=== PATIENT | male | born 1960 | race Caucasian/White ===

== ENCOUNTER 2019-08-12 14:44 | Outpatient (CLI) | payer BC, SELFPAY ==
--- NOTE | ~2019-08-12 | CT_ITS ---
EXAMINATION: CT shoulder RT wo con DATE: 08/12/2019 15:09 INDICATION: Right shoulder pain. TECHNIQUE: Computed tomography (CT) of the right shoulder was performed without intravenous contrast. Automated exposure control and iterative reconstruction technique were employed. The dose-length pro duct was 467.10 mGy-cm. COMPARISON: None FINDINGS: There is superior subluxation of humeral head with respect to glenoid with remodeling of th e undersurface of the acromion and superior aspect of the humeral head, consistent with chronic rotat or cuff tear with cup arthropathy. No fracture. There is severe osteoarthritis of glenohumeral joint and acromioclavicular joint. There are loose bodies in the glenohumeral joint and subacromial/subdelt oid bursa measuring up to 2.0 cm. There is a moderate-sized glenohumeral joint effusion. There is vol ume loss and moderate fatty atrophy of supraspinatus, infraspinatus, and subscapularis muscle bellies . Right-sided gynecomastia is noted. IMPRESSION: 1. Severe osteoarthritis of glenohumeral joint and acromioclavicular joint. 2. Chronic rotator cuff tear with cuff arthropathy. 3. Moderate-sized glenohumeral joint effusion with loose bodies in glenohumeral joint and subacromial /subdeltoid bursa. Reviewed, dictated and finalized at location A. ADVISER IMPRESSION: 1. Severe osteoarthritis of glenohumeral joint and acromioclavicular joint. 2. Chronic rotator cuff tear with cuff arthropathy. 3. Moderate-sized glenohumeral joint effusion with loose bodies in glenohumeral joint and subacromial/subdeltoid bursa.
== END 2019-08-12 14:45 | disposition home or self-care (01) ==
PROVIDERS: Visit Provider Orthopaedic Surgery
DX: M19.011 Primary osteoarthritis, right shoulder (principal); M25.411 Effusion, right shoulder
CPT/HCPCS: 73200

== ENCOUNTER 2021-11-12 15:11 | Emergency (ER) | payer OTHER, SELFPAY ==
[2021-11-12 15:21] VITALS: BP 126/90; PULSE 113; RESP 16; TEMP 37; O2SAT 99
--- NOTE | 2021-11-12 15:21 | ED.EXTPRO ---
HPI - Extremity Problem General Chief complaint: Extremity Problem,Nontraumatic Stated complaint: right foot 5th digit toe Time Seen by Provider: 11/12/21 15:21 Source: patient and RN notes reviewed Mode of arrival: ambulatory Limitations: no limitations History of Present Illness HPI Narrative: 61-year-old male presents to the [facility] with complaints of pain, redness and swelling to the fourth toe right foot. Reports pain. Patient is a diabetic, poor hygiene of the feet. Very dry callused. No open wounds. Has sensation intact of the fourth right toe. Redness, swelling noted. Patient reports trying to call primary care provider, states he was unable appointment due to her being on vacation. Related Data Allergies Allergy/AdvReac Type Severity Reaction Status Date / Time NONE PER PT Allergy Uncoded 09/28/11 14:15 Review of Systems Review of Systems: All systems reviewed & are unremarkable except as noted in HPI and below Constitutional: Constitutional: Reports no additional constitutional complaints, Denies chills and Denies fever(s) Eyes: Eyes: Reports no additional eye complaints ENT: Reports system reviewed and no additional complaints, except as documented Cardiovascular: Cardiovascular: Reports no additional cardiovascular complaints Respiratory: Respiratory: Reports no additional respiratory complaints Gastrointestinal: Gastrointestinal: Reports no additional gastrointestinal complaints Musculoskeletal: Musculoskeletal: Reports no additional musculoskeletal complaints Integumentary/Breasts: Skin/Breast: Reports as per HPI and Reports erythema (Fourth right toe) Neurologic: Reports system reviewed and no additional complaints, except as documented Psychiatric: Psychiatric: Reports no additional psychiatric complaints Allergic/Immunologic: Allergic/Immunologic: Reports no additional allergic/immunologic complaints [facility] Past Medical History Medical History History of diabetes mellitus History of high blood pressure Comments At the time of my signature, I reviewed and agree with the nursing past medical, surgical, social, and family history. There is no relevant family history pertinent to the patient complaint. Exam Const: General: healthy appearing, no acute distress and alert Nutritional Appearance: well nourished Orientation/consciousness: patient oriented x3 Limitations: no limitations HENMT: Head: normal to inspection Ears: external ears normal Eyes: Pupils: Equal, round and reactive pupils present Neck: Neck: normal visual inspection, no lymphadenopathy and no meningeal signs Chest: Chest palpation & inspection: normal inspection of the chest Resp: Effort & Inspection: normal respiratory effort and no use of accessory muscles Auscultation: clear to auscultation bilaterally, no crackles, no rales, no rhonchi and no wheezes Cardio: Rate: regular rate Rhythm: regular rhythm Skin: General skin exam: normal color Rashes: no rashes Wounds: no wounds Other: Redness dorsal aspect fourth toe right foot, minor swelling, sensation intact, capillary refill 2 seconds Neuro: General: patient oriented x3, moves all extremities, no meningeal signs and no focal motor deficits Cranial nerves: Yes Equal, round and reactive pupils present Speech: normal speech Gait exam (Neuro): Normal gait present Extrem: General: normal to inspection Psych: Appearance: grossly normal and well kempt Mental Status: mental status grossly normal Affect: normal affect Attitude: cooperative Thought content: Yes Normal thought content present Course Course Emergency Course: Discharge instructions reviewed with patient, as well as provided in writing per nursing staff. The instructions also include specific and strict return/GO TO THE ER as well as f/u information. All questions have been answered, and the patient deny any further questions with discharge and
[2021-11-12 15:35] VITALS: BP 126/90; PULSE 113; RESP 16; TEMP 37; O2SAT 99
[2021-11-12 15:35] LABS: Glucose Point of Care 160 mg/dl (65-105)
== END 2021-11-12 15:40 | disposition home or self-care (01) ==
PROVIDERS: Emergency Provider Nurse Practitioner
DX: L03.031 Cellulitis of right toe (principal); E11.9 Type 2 diabetes mellitus without complications; I10 Essential (primary) hypertension
CPT/HCPCS: 82948; 99213; G0463

== ENCOUNTER 2022-07-13 08:44 | Emergency (ER) | payer OTHER, SELFPAY ==
[2022-07-13 08:49] VITALS: BP 148/81; PULSE 95; RESP 20; TEMP 36.3; O2SAT 100
--- NOTE | 2022-07-13 08:57 | ED.ABDPAIN ---
HPI - Abdominal Pain General Chief Complaint: Abdominal Pain Stated Complaint: abd pain/diarrhea Time Seen by Provider: 07/13/22 09:05 Source: patient and RN notes reviewed Mode of arrival: ambulatory Limitations: no limitations History of Present Illness HPI narrative: 61 y/o male with diabetes and HTN presented for c/o abdominal pain and diarrhea, onset yesterday. States last night he had sharp upper middle abdominal pain, described as a knife stabbing. He has continued with diarrhea into this morning. Unknown if blood in stool, states he did not check. Denies n/v/f/c, chest pain, or palpitations. Drinks alcohol daily about 4 beers, last night he drank one. Also drank milk and ate small amount of anguillan food and was able to go to sleep. Then at 0100 developed more pain and continued with diarrhea. He took pepto without relief. Has not been taking DM medication due to insurance/financial issues. States he can regulate it 'mentally and physically' by how much the neuropathy acts up after eating certain foods. Related Data Home Medications Medication Instructions Recorded Confirmed lisinopril 10 mg tablet 10 mg DIRECTED 07/13/22 07/13/22 meloxicam 15 mg tablet 15 mg DIRECTED 07/13/22 07/13/22 Allergies Allergy/AdvReac Type Severity Reaction Status Date / Time NONE PER PT Allergy Uncoded 09/28/11 14:15 Review of Systems Review of Systems: CONSTITUTIONAL: Denies body aches, fever, chills ENT: Denies rhinorrhea, congestion CARDIOVASCULAR: Denies chest pain, palpitations, or edema. RESPIRATORY: Denies cough or dyspnea. GASTROINTESTINAL: per HPI GENITOURINARY: Denies dysuria, hematuria, or CVA tenderness. SKIN: Denies rash, itching, or wounds. MUSCULOSKELETAL: Denies back pain, joint pain, or myalgia. NEUROLOGIC: Denies headache, numbness, tingling, or weakness. All systems reviewed & are unremarkable except as noted in HPI and below PMFSH Past Medical History Medical History History of diabetes mellitus History of high blood pressure Comments At time of signature, I have reviewed and agree with nursing past medical, surgical, social and family history unless otherwise noted. Please see nursing chart for further information. There is no relevant family history pertinent to the presenting complaint Exam Narrative: GENERAL: ill-appearing, and in no acute distress. EYES: EOMI. Conjunctivae normal. ENT: Mucous membranes pink and moist. CHEST: Clear to auscultation. HEART: Regular rate and rhythm. No murmur appreciated. Normal peripheral pulses. ABDOMEN: abd soft, nondistended, hypoactive bowel sounds. Diffusely tender abdomen; No guarding, rebound tenderness, asymmetry EXTREMITIES: Normal range of motion. No edema. SKIN: Warm, dry, no rash. Capillary refill normal. Normal skin turgor. NEURO: No focal deficits. Alert and oriented x3. PSYCH: Normal affect. Course Course Emergency Course: Patient is aware of diagnosis, understands and agrees to treatment plan. Anticipatory guidance given. Patient agrees to follow-up as directed and is aware of reasons to seek care at the emergency department. Portions of this record may have been created with voice recognition software Level of Care: Express Care Visit Vital Signs Vital signs: Vital Signs Temperature 97.3 F L 07/13/22 08:49 Pulse Rate 95 07/13/22 08:49 Respiratory Rate 20 07/13/22 08:49 Blood Pressure 148/81 H 07/13/22 08:49 Pulse Oximetry 100 07/13/22 08:49 Oxygen Delivery Room Air 07/13/22 08:49 Temperature 97.3 F L 07/13/22 08:49 Pulse Rate 95 07/13/22 08:49 Respiratory Rate 20 07/13/22 08:49 Blood Pressure 148/81 H 07/13/22 08:49 Pulse Oximetry 100 07/13/22 08:49 Oxygen Delivery Room Air 07/13/22 08:49 MDM - Abdominal Pain MDM Narrative Medical decision making narrative: Patient presented with abdominal pain and diarrhea since yeste
[2022-07-13 09:22] LABS: Glucose Point of Care 342 mg/dl (65-105)
== END 2022-07-13 09:39 | disposition home or self-care (01) ==
PROVIDERS: Emergency Provider Nurse Practitioner Family
DX: R10.84 Generalized abdominal pain (principal); R19.7 Diarrhea, unspecified
CPT/HCPCS: 81003; 82948; 99212; G0463

== ENCOUNTER 2023-04-04 11:51 | Emergency (ER) | payer OTHER, SELFPAY ==
--- NOTE | 2023-04-04 12:00 | ED.GENADULT ---
HPI - General Adult General Chief complaint: Shortness of Breath/Dyspnea Stated complaint: shaking,difficulty breathing,thirsty Time Seen by Provider: 04/04/23 12:04 Mode of arrival: ambulatory Limitations: no limitations History of Present Illness HPI narrative: 62-year-old male with history of diabetes presents with concern for general weakness, shakiness, difficulty breathing, increased thirst. Reports he currently does not take any medication for his diabetes, and he does not have any diabetes monitoring devices. He does not know what his blood sugar usually runs. He reports chills, denies fever, sweats. Denies chest pain. Reports shortness of breath. Reports he left work today due to the symptoms. He denies rhinorrhea, nasal congestion, sore throat, cough. He denies vomiting or diarrhea. He denies abdominal pain. Related Data Home Medications Medication Instructions Recorded Confirmed lisinopril 10 mg tablet 10 mg DIRECTED 07/13/22 04/04/23 meloxicam 15 mg tablet 15 mg DIRECTED 07/13/22 04/04/23 Allergies Allergy/AdvReac Type Severity Reaction Status Date / Time No Known Allergies Allergy Verified 04/04/23 11:58 Review of Systems Review of Systems: CONSTITUTIONAL: Reports malaise, chills, shakiness, increased thirst, generalized weakness EYES: Denies visual changes ENT: Denies rhinorrhea, congestion, sinus pain, otalgia or sore throat. CARDIOVASCULAR: Denies chest pain, palpitations, or edema. RESPIRATORY: Denies cough. Reports dyspnea. GASTROINTESTINAL: Denies abdominal pain, nausea, vomiting, diarrhea, bloody, or mucous stools. GENITOURINARY: Denies dysuria or hematuria. SKIN: Denies rash or itching. MUSCULOSKELETAL: Denies myalgia. Reports bilateral chronic shoulder pain NEUROLOGIC: Denies numbness, weakness, or headache. All systems reviewed & are unremarkable except as noted in HPI and below PMFSH Past Medical History Medical History History of diabetes mellitus History of high blood pressure Comments At time of signature, agree with nursing past medical, surgical, social and family history. There is no relevant family history pertinent to the presenting complaint Exam Narrative: GENERAL: Ill-appearing HEAD: Normocephalic EYES: PERRLA, sclera clear, and EOMI. No nystagmus. ENT: Nares clear. Mucous membranes moist. NECK: Supple. CHEST: No respiratory distress. Clear to auscultation. Conversational dyspnea HEART: Fast rat. Normal peripheral pulses. SKIN: Warm, dry, no visible rash. NEURO: Alert and oriented x3. Course Course Emergency Course: Patient is aware of, understands and agrees to be seen in the emergency department. Portions of this record may have been created with voice recognition software Level of Care: Express Care Visit Vital Signs Vital signs: Reviewed. Transfer Transfered to: [place] Transportation: [facility] Transfer rationale: Suspected myocardial infarction Accepting physician: Julissa Medical Decision Making MDM Narrative Medical decision making narrative: Exam findings and EKG warrant further evaluation emergency department. Patient agrees to EMS transfer ECG Data EKG #1: ECG completion date: 04/04/23 ECG completion time: 12:20 Prior ECG tracings: not available for review Ischemic changes: ST elevation Interpretation: Rate 113, [place] interval 164, QRS duration 89, sinus tachycardia, septal myocardial infarction of indeterminate age EKG Interpretation: tachycardia Critical Care Time Critical Care Time Critical Care Time: No Discharge Plan Discharge Clinical Impression: Abnormal ECG Patient Disposition: Acute Care Hospital Condition: Stable Prescriptions: No Action meloxicam 15 mg tablet 15 mg DIRECTED lisinopril 10 mg tablet 10 mg DIRECTED Follow-up/Referrals: PHYSICIAN NOT ON STAFF,NONSTAFF [Gabby
[2023-04-04 12:06] VITALS: BP 143/96; PULSE 118; RESP 20; TEMP 36.3; O2SAT 99
[2023-04-04 12:07] LABS: Glucose Point of Care 261 mg/dl (65-105)
--- NOTE | 2023-04-04 12:10 | ECG_ITS ---
Measurements Intervals [place] Rate: 113 P: 53 [place]: 164 QRS: -4 QRSD: 89 T: 20 QT: 296 QTc: 407 Interpretive Statements SINUS TACHYCARDIA CANNOT RULE OUT SEPTAL MYOCARDIAL INFARCTION [40+ ms Q WAVE IN V1/V2], OF INDETERMINATE AGE NO PREVIOUS ECG AVAILABLE FOR COMPARISON Electronically Signed On 04-04-2023 15:46:35 CDT by Walter Varghese M.D.
[2023-04-04] MEDS: ASPIRIN 81 MG CHEWABLE TABLET 324 MG PO (12:20)
== END 2023-04-04 12:35 | disposition short-term general hospital (02) ==
PROVIDERS: Emergency Provider Nurse Practitioner
DX: R94.31 Abnormal electrocardiogram [ECG] [EKG] (principal); E11.9 Type 2 diabetes mellitus without complications; Z20.822 Contact with and (suspected) exposure to COVID-19
CPT/HCPCS: 81003; 82948; 87426; 87804; 93005; 99215; A9270; C9803; G0463

== ENCOUNTER 2023-04-04 12:47 | Emergency (ER) | payer OTHER, SELFPAY ==
[2023-04-04] VITALS (9 sets, daily range): BP systolic 129–146; BP diastolic 87–95; PULSE 104–122; RESP 15–22; TEMP 36.6; O2SAT 95–100
--- NOTE | ~2023-04-04 | XR_ITS ---
EXAMINATION: XR chest 2V DATE: 04/04/2023 13:30 INDICATION: Weakness and hypertension TECHNIQUE: AP and lateral views of the chest are obtained. COMPARISON: None available FINDINGS: The lungs are free of acute opacities. No pleural effusion or pneumothorax. The cardiomedia stinal silhouette is normal. There is mild thoracic spondylosis. There are changes of right shoulder arthroplasty. Advanced osteoarthritis is noted at the left glenohumeral joint. IMPRESSION: 1. No acute cardiopulmonary abnormality. Reviewed, dictated and finalized at location A.
--- NOTE | ~2023-04-04 | CT_ITS ---
EXAMINATION: CTA chest PE protocol DATE: 04/04/2023 15:11 INDICATION: Chronic bilateral shoulder pain. TECHNIQUE: Computed tomography angiography (CTA) of the chest was performed with 200 mL Omnipaque-350 intravenous contrast timed to evaluate the pulmonary arteries. Coronal maximum intensity projection 3D-reconstructions were created by the technologist. Automated exposure control and iterative reconst ruction technique were employed. The dose-length product was 1260.05 mGy-cm. COMPARISON: None. FINDINGS: There is mild atelectasis bilaterally. There is a 5 mm nodule in right lower lobe, likely b enign. No pleural effusion. The heart size is normal. There are coronary artery calcifications. No pe ricardial effusion. There is no pulmonary embolus. There is a 9 mm cyst in left kidney. There is a ri ght shoulder arthroplasty. There is severe cervical spondylosis and moderate thoracic spondylosis. Th ere is mild chronic anterior wedging of T11 and T12 vertebral bodies. IMPRESSION: 1. No pulmonary embolus. Reviewed, dictated and finalized at location E. IMPRESSION: 1. No pulmonary embolus.
--- NOTE | 2023-04-04 13:09 | ECG_ITS ---
Measurements Intervals [place] Rate: 110 P: 31 [place]: 155 QRS: 6 QRSD: 77 T: 8 QT: 307 QTc: 417 Interpretive Statements SINUS TACHYCARDIA NO PREVIOUS ECG AVAILABLE FOR COMPARISON Electronically Signed On 04-04-2023 15:46:47 CDT by Walter Varghese M.D.
[2023-04-04 13:40] LABS: Basophils Percent Auto 0.5 % (0.2-1.2); Eosinophils Absolute Auto 0.1 K/mm3 (0-0.3); Eosinophils Percent Auto 0.8 % (0-4.4); Hematocrit 45.5 % (37.0-47.0); Hemoglobin 15.1 g/dL (12.0-15.0); Immature Granulocyte Absolute 0.03 K/mm3 (0.00-0.031); Immature Granulocyte Percent A 0.5 % (0-0.5); Lymphocytes Absolute Auto 1.22 K/mm3 (0.9-3.2); Lymphocytes Percent Auto 18.4 % (18.3-44.2); Mean Corpuscular HGB Conc 33.2 g/dl (32-36); Mean Corpuscular Hemoglobin 31.8 pg (26-34); Mean Corpuscular Volume 95.8 fl (80-100); Mean Platelet Volume 9.6 fl (7.4-10.4); Monocytes Absolute Auto 0.4 K/mm3 (0.1-0.6); Monocytes Percent Auto 5.3 % (2.6-8.5); Neutrophils Absolute Auto 4.9 K/mm3 (1.3-6.7); Neutrophils Percent Auto 74.5 % (45.5-73.1); Platelet Count Result 227 k/mm3 (150-375); Red Blood Count 4.75 M/mm3 (4.2-5.4); Red Cell Distribution Width 11.9 % (11.5-14.5); White Blood Count 6.6 K/mm3 (4.5-10.0)
[2023-04-04 13:48] LABS: Alanine Aminotransferase 32 U/L (6-35); Albumin Level 4.5 g/dL (3.5-5.1); Alkaline Phosphatase 80 U/L (38-126); Anion Gap 10 mmol/L (8-16); Aspartate Amino Transferase 34 U/L (14-36); Blood Urea Nitrogen 19 mg/dL (7-17); Calcium 9.3 mg/dL (8.4-10.2); Carbon Dioxide 25 mmol/L (22-30); Chloride 96 mmol/L (98-107); Estimated CRCL calculation 75 ml/min; Estimated Glomerular Filt Rate > 60; Glucose 222 mg/dL (65-110); Potassium 4.4 mmol/L (3.4-5.0); Sodium 131 mmol/L (137-145)
[2023-04-04 13:49] LABS: Lactic Acid Reflex 1.7 mmol/L (0.7-2.0)
[2023-04-04 13:58] LABS: Appearance Urine Clear (Clear); Bilirubin Urine Negative (Negative); Blood Urine Negative (Negative); Color Urine Yellow (Yellow); Glucose Urine UA Trace mg/dL (Negative); Ketones Urine 1+ mg/dL (Negative); Leukocyte Esterase Ur Negative LEU/UL (Negative); Nitrate Urine Negative (Negative); Protein Urine Negative (Negative); Specific Grav Ur 1.005 (1.001-1.035); Urobilinogen Urine 0.2 mg/dL (<2.0); pH Urine 6.5 (5.0-9.0)
--- NOTE | 2023-04-04 14:07 | ED.WEAKNESS ---
HPI - Weakness General Chief complaint: Weakness Stated complaint: dizzy/weak Time Seen by Provider: 04/04/23 13:06 History of Present Illness HPI Narrative: Patient is a 62-year-old male with a history of diabetes presenting with generalized malaise. Patient states that for the last week he has been feeling lightheaded, generally weak, intermittently cold. States that he sometimes feels short of breath. He was seen at urgent care who told him to come to the ER because of an abnormal EKG. He denies any chest pain. No palpitations. Denies cough, nasal congestion, sore throat, abdominal pain, nausea or vomiting, diarrhea, dysuria, leg swelling, rashes. Related Data Home Medications Medication Instructions Recorded Confirmed lisinopril 10 mg tablet 10 mg DIRECTED 07/13/22 04/04/23 meloxicam 15 mg tablet 15 mg DIRECTED 07/13/22 04/04/23 Allergies Allergy/AdvReac Type Severity Reaction Status Date / Time No Known Allergies Allergy Verified 04/05/23 14:25 Review of Systems Review of Systems: All systems reviewed & are unremarkable except as noted in HPI and below PMFSH Past Medical History Medical History History of diabetes mellitus History of high blood pressure Exam Narrative: GENERAL: Well-appearing, in no acute distress, pleasant and cooperative HEAD: Normocephalic, atraumatic. EYES: PERRLA and EOMI. ENT: Mucous membranes moist. NECK: Supple. CHEST: Clear to auscultation. No respiratory distress. HEART: Regular rate and rhythm. No murmur heard. Normal peripheral pulses. ABDOMEN: Soft, nontender, nondistended EXTREMITIES: Normal range of motion. No edema. SKIN: Warm, dry, no rash. NEURO: No focal deficits. Alert and oriented x3. PSYCH: Normal mood and affect. Course Vital Signs Vital signs: Vital Signs Temperature 97.9 F 04/04/23 12:45 Pulse Rate 110 H 04/04/23 12:45 Respiratory Rate 22 H 04/04/23 12:45 Blood Pressure 137/90 04/04/23 12:45 Pulse Oximetry 100 04/04/23 12:45 Oxygen Delivery Room Air 04/04/23 12:45 Temperature 97.9 F 04/04/23 12:45 Pulse Rate 110 H 04/04/23 15:56 Respiratory Rate 20 04/04/23 15:56 Blood Pressure 143/95 H 04/04/23 15:56 Pulse Oximetry 98 04/04/23 15:56 Oxygen Delivery Room Air 04/04/23 12:45 MDM - Weakness MDM Narrative Medical decision making narrative: Patient is a 62-year-old male presenting with generalized malaise. Patient is tachycardic, otherwise vitals are within normal limits. Exam is remarkable for the above. EKG per my interpretation shows sinus tachycardia, normal axis, normal intervals, no ST elevations or depressions. Blood work concerning for elevated D-dimer. No other abnormalities noted. Undetectable troponin. CT PE shows no evidence of pulmonary embolus. Patient is negative for COVID and influenza. On reevaluation, the patient is asking to go home which I think is reasonable. Discussed the reassuring work-up. Advise close PCP follow-up. Strict return precautions given. Patient voiced understanding and is agreeable with plan. Discharged in stable condition. Differential Diagnosis Differential diagnosis: Likely sepsis, dehydration and other (URI, PE, pneumonia, KAYLEY, UTI, viral infection) Medical Records Attestation: I reviewed the patient's medical records. Lab Data Attestation: I reviewed the patient's lab results. 04/04/23 13:31 04/04/23 13:31 Labs: Lab Results 04/04/23 04/04/23 04/04/23 Range/Units 13:31 13:49 15:12 WBC 6.6 (4.5-10.0) K/mm3 RBC 4.75 (4.2-5.4) M/mm3 Hgb 15.1 H (12.0-15.0) g/dL Hct 45.5 (37.0-47.0) % MCV 95.8 (80-100) fl MCH 31.8 (26-34) pg MCHC 33.2 (32-36) g/dl RDW 11.9 (11.5-14.5) % Plt Count 227 (150-375) k/mm3 MPV 9.6 (7.4-10.4) fl Immature Gran % (Auto) 0.5 (0-0.5) % Neut % (Auto) 74.5 H (45.5-73.1) %
[2023-04-04 14:14] LABS: Add Urine Microscopic? NO
[2023-04-04] MEDS: SODIUM CHLORIDE 0.9% IV 1,000 ML 999 ML IV CONT ×2 (14:16→14:50)
[2023-04-04 14:25] LABS: INR 0.9; Prothrombin Time 12.6 Seconds (11.1-14.7)
[2023-04-04 14:26] LABS: Partial Thromboplastin Time 28.6 SECONDS (22.3-36.8)
[2023-04-04 14:37] LABS: D Dimer 0.53 ug/mL (<0.48)
[2023-04-04 15:15] LABS: NT Pro B Type Natriuretic Pept < 20 pg/mL (19.9-100); Troponin I < 0.012 ng/mL (0.000-0.034)
[2023-04-04 15:55] LABS: Influenza A QL RT-PCR Negative (Negative); Influenza B QL RT-PCR Negative (Negative); SARS-CoV-2 RNA PCR Negative (Negative)
== END 2023-04-04 15:57 | disposition home or self-care (01) ==
PROVIDERS: Emergency Provider Emergency Medicine; PCP Nurse Practitioner
DX: R53.81 Other malaise (principal); R06.02 Shortness of breath; Z20.822 Contact with and (suspected) exposure to COVID-19; E11.9 Type 2 diabetes mellitus without complications; I10 Essential (primary) hypertension; R00.0 Tachycardia, unspecified
CPT/HCPCS: 36415; 71046; 71275; 80053; 81003; 82948; 83605; 83880; 84484; 85025; 85380; 85610; 85730; 87426; 87636; 87804; 93005; 96360; 99284; A9270; C9803; J7030; Q9967

== ENCOUNTER 2023-05-18 08:59 | Emergency (ER) | payer OTHER, SELFPAY ==
--- NOTE | 2023-05-18 09:06 | ED.SKABFB ---
HPI - Skin/Abscess/Foreign Bdy General Chief complaint: Extremity Problem,Nontraumatic Stated complaint: Right Hand Pain Time Seen by Provider: 05/18/23 09:15 Source: patient and RN notes reviewed Mode of arrival: ambulatory Limitations: dementia History of Present Illness HPI narrative: 62-year-old male with history of uncontrolled diabetes presents with concern for redness, swelling to the 1st digit of the right hand. Reports he had a crack in the cuticle and symptoms started after that, they progressed over the last 3-4 days. He reports he tried calling his doctor for an antibiotic but is doctor would not prescribe one over the phone. He denies fever, body aches, chills, sweats. MD complaint: other (Redness) Related Data Home Medications Medication Instructions Recorded Confirmed lisinopril 10 mg tablet 10 mg DIRECTED 07/13/22 05/18/23 meloxicam 15 mg tablet 15 mg DIRECTED 07/13/22 05/18/23 Allergies Allergy/AdvReac Type Severity Reaction Status Date / Time No Known Allergies Allergy Verified 05/18/23 09:15 Review of Systems Review of Systems: CONSTITUTIONAL: Denies malaise, chills, sweats, or fever. CARDIOVASCULAR: Denies chest pain, palpitations, or edema. RESPIRATORY: Denies cough or dyspnea. GASTROINTESTINAL: Denies nausea, vomiting SKIN: Reports redness, swelling, pain to the 1st digit of the right hand. Denies purulent drainage, vesicles, bullae, numbness, pain beyond proportion MUSCULOSKELETAL: Denies joint pain or myalgia. NEUROLOGIC: Denies headache. All systems reviewed & are unremarkable except as noted in HPI and below PMFSH Past Medical History Medical History History of diabetes mellitus History of high blood pressure Comments At time of signature, agree with nursing past medical, surgical, social and family history. There is no relevant family history pertinent to the presenting complaint Exam Narrative: GENERAL: Well-appearing, well-nourished, and in no acute distress. HEAD: Normocephalic, atraumatic. EYES: PERRLA, conjunctivae clear ENT: Mucous membranes moist. NECK: Supple. No lymphadenopathy CHEST: Clear to auscultation. No respiratory distress. HEART: Regular rate and rhythm. SKIN: Warm, dry. Significant erythema, induration, tenderness, warmth noted to the 1st digit of the right hand extending into the hand and 2nd digit with approximately 1 cm area of fluctuation noted to the lateral 1st digit. No vesicles, bullae, necrosis, ecchymosis, crepitus noted. NEURO: Alert and oriented x3. PSYCH: Normal mood and affect Course Course Emergency Course: I advised patient that his infection would best be treated by IV antibiotics, particularly given his history of diabetes. Patient reports that he cannot afford to go to the ER and is that this time refusing to go to the emergency room. I advised the patient that I will treat him to the best of my ability, however he should without delay go to the emergency room if his symptoms not begin to improve in 24 hours. Patient signed AMA form. Anticipatory guidance given. Patient agrees to follow-up as directed and is aware of reasons to seek care at the emergency department. Portions of this record may have been created with voice recognition software Level of Care: Express Care Visit Vital Signs Vital signs: Reviewed. MDM - Skin/Abscess/Foreign Bdy MDM Narrative Medical decision making narrative: Exam findings warrant further evaluation the ER, however patient is refusing to go the emergency room; patient is non-toxic appearing and is in no distress. Patient is appropriate for outpatient treatment and follow-up. Differential Diagnosis Differential diagnosis: Likely abscess of skin or subcutaneous tissue, cellulitis and other (Necrotizing soft tissue infection) Critical Care Time Critical Care Time Critical Care Time: No Discharge Plan Discharge Clinical Impress
[2023-05-18 09:12] VITALS: BP 128/98; PULSE 117; RESP 20; TEMP 36.6; O2SAT 99
[2023-05-18] MEDS: LIDOCAINE/PRILOCAINE CREAM 2.5-2.5% TUBE 1 EACH TOPICAL (09:25)
== END 2023-05-18 09:55 | disposition home or self-care (01) ==
PROVIDERS: Emergency Provider Nurse Practitioner; PCP Nurse Practitioner
DX: L08.9 Local infection of the skin and subcutaneous tissue, unspecified (principal); E11.9 Type 2 diabetes mellitus without complications; I10 Essential (primary) hypertension
CPT/HCPCS: 99213; G0463

== ENCOUNTER 2023-05-22 09:26 | Emergency (ER) | payer OTHER, SELFPAY ==
[2023-05-22] VITALS (17 sets, daily range): BP systolic 108–143; BP diastolic 66–89; PULSE 88–102; RESP 16–18; TEMP 36.8–37; O2SAT 96–100
[2023-05-22 10:07] LABS: Basophils Percent Auto 0.3 % (0.2-1.2); Eosinophils Absolute Auto 0.1 K/mm3 (0-0.3); Eosinophils Percent Auto 1.4 % (0-4.4); Hematocrit 43.5 % (42.0-52.0); Hemoglobin 14.3 g/dL (14.0-18.0); Immature Granulocyte Absolute 0.02 K/mm3 (0.00-0.031); Immature Granulocyte Percent A 0.3 % (0-0.5); Lymphocytes Absolute Auto 0.55 K/mm3 (0.9-3.2); Lymphocytes Percent Auto 9.4 % (18.3-44.2); Mean Corpuscular HGB Conc 32.9 g/dl (32-36); Mean Corpuscular Hemoglobin 31.2 pg (26-34); Mean Platelet Volume 9.8 fl (7.4-10.4); Monocytes Absolute Auto 0.4 K/mm3 (0.1-0.6); Monocytes Percent Auto 6.3 % (2.6-8.5); Neutrophils Absolute Auto 4.8 K/mm3 (1.3-6.7); Neutrophils Percent Auto 82.3 % (45.5-73.1); Platelet Count Result 220 k/mm3 (150-375); Red Blood Count 4.58 M/mm3 (4.6-6.20); Red Cell Distribution Width 11.9 % (11.5-14.5); White Blood Count 5.9 K/mm3 (4.5-10.0)
[2023-05-22 10:19] LABS: Alanine Aminotransferase 31 U/L (6-50); Albumin Level 4.1 g/dL (3.5-5.1); Alkaline Phosphatase 88 U/L (38-126); Anion Gap 9 mmol/L (8-16); Aspartate Amino Transferase 35 U/L (17-59); Bilirubin,Total 0.6 mg/dL (0.2-1.3); Blood Urea Nitrogen 18 mg/dL (9-20); Calcium 9.4 mg/dL (8.4-10.2); Carbon Dioxide 28 mmol/L (22-30); Chloride 99 mmol/L (98-107); Estimated CRCL calculation 108 ml/min; Estimated Glomerular Filt Rate > 60; Glucose 334 mg/dL (65-110); Potassium 4.6 mmol/L (3.4-5.0); Sodium 136 mmol/L (137-145)
--- NOTE | 2023-05-22 12:18 | ED.GENADULT ---
HPI - General Adult General Chief complaint: Wound/Laceration Stated complaint: wound to thumb Time Seen by Provider: 05/22/23 09:41 History of Present Illness HPI narrative: Patient is a 62-year-old male who presents ER with a infection to his right thumb. Ongoing over the last week and a half. Began with crack scan that then developed into redness and swelling. He was seen 3 days ago at urgent care. He was prescribed Levaquin as well as linezolid. He reports since that visit he has had purulent drainage that became clear drainage and then just became bloody drainage. He reports the swelling has decreased. He was at work today and was told to come in by his boss to be evaluated further. Patient has history of diabetes and does not take anything for his blood sugar. He denies any fevers or chills or sweats. Has no lymphangitic streaking up his arm. Related Data Home Medications Medication Instructions Recorded Confirmed lisinopril 10 mg tablet 10 mg DIRECTED 07/13/22 05/18/23 meloxicam 15 mg tablet 15 mg DIRECTED 07/13/22 05/18/23 Allergies Allergy/AdvReac Type Severity Reaction Status Date / Time No Known Allergies Allergy Verified 05/18/23 09:15 Review of Systems Review of Systems: All systems reviewed & are unremarkable except as noted in HPI and below Constitutional: Constitutional: Denies chills and Denies fever(s) Cardiovascular: Cardiovascular: Reports no additional cardiovascular complaints Respiratory: Respiratory: Reports no additional respiratory complaints Gastrointestinal: Gastrointestinal: Reports no additional gastrointestinal complaints Musculoskeletal: Musculoskeletal: Denies arthralgias and Denies joint swelling Comments: Right thumb pain and swelling but not specifically the joint. Integumentary/Breasts: Skin/Breast: Denies pruritus, Reports erythema and Reports rash PMFSH Past Medical History Medical History History of diabetes mellitus History of high blood pressure Exam Narrative: GENERAL: Well-appearing, well-nourished, and in no acute distress. HEAD: Normocephalic, atraumatic. ENT: Mucous membranes moist. CHEST: Clear to auscultation. No respiratory distress. HEART: Regular rate and rhythm. Normal peripheral pulses. EXTREMITIES: Right hand with cellulitis of the thumb with an area of drainage over the ulnar aspect near the PIP. No cellulitis of the distal phalanx. No lymphangitic streaking up the arm. Patient tolerates passive range of motion though he has limited range of motion due to the swelling. No purulence could be expressed. SKIN: Warm, dry, no rash with exception of the above thumb exam. NEURO: Alert and oriented x3. PSYCH: Normal mood and affect. Course Course Emergency Course: Patient resting comfortably. Informed of lab results. No leukocytosis. Offered admission to the hospitalist service with IV antibiotics and patient has declined due to insurance and payment concerns. Discussed need to try to decrease patient's blood sugar with metformin and he verbalized understanding. He will continue his outpatient antibiotics. Discussed continuing to soak thumb in trying to squeeze out any pus that may remain. Discussed return precautions and he verbalized understanding. Vital Signs Vital signs: Vital Signs Temperature 98.6 F 05/22/23 09:27 Pulse Rate 102 H 05/22/23 09:27 Respiratory Rate 16 05/22/23 09:27 Blood Pressure 143/89 H 05/22/23 09:27 Pulse Oximetry 100 05/22/23 09:27 Oxygen Delivery Room Air 05/22/23 09:27 Temperature 98.3 F 05/22/23 13:44 Pulse Rate 88 05/22/23 13:44 Respiratory Rate 18 05/22/23 13:44 Blood Pressure 135/87 05/22/23 13:44 Pulse Oximetry 98 05/22/23 13:44 Oxygen Delivery Room Air 05/22/23 09:27 Medical Decision Making Vital Signs Vital Signs: Vital Signs Temperature 98.6 F 05/22/23 09:27 Pulse R
== END 2023-05-22 13:47 | disposition home or self-care (01) ==
PROVIDERS: Emergency Provider Emergency Medicine; PCP Nurse Practitioner
DX: L03.011 Cellulitis of right finger (principal); E11.65 Type 2 diabetes mellitus with hyperglycemia; I10 Essential (primary) hypertension
CPT/HCPCS: 36415; 80053; 85025; 99283

== ENCOUNTER 2024-08-03 15:15 | Emergency (ER) | payer OTHER, SELFPAY ==
[2024-08-03 15:49] VITALS: BP 139/61; PULSE 96; RESP 20; TEMP 36.9; O2SAT 99
--- NOTE | 2024-08-03 16:15 | ED_ITS ---
HPI - Dental/Oral General Chief complaint: Dental/Oral Stated complaint: Facial Swelling/Bruising Time Seen by Provider: 08/03/24 16:15 Source: patient Mode of arrival: ambulatory History of Present Illness HPI Narrative: 63-year-old male with poor dentition presented for complaint of left upper dental pain and facial swelling worsening for 1 week. Endorses pain and redness under the left eye and into the nose. Says Tylenol does not work for him. He took ibuprofen today. MD Complaint: tooth pain Related Data Home Medications ?Medication ?Instructions ?Recorded ?Confirmed ?Last Taken ?Type lisinopril 10 mg tablet 10 mg DIRECTED 07/13/22 05/18/23 Unknown History meloxicam 15 mg tablet mg 08/03/24 Unknown History Allergies Allergy/AdvReac Type Severity Reaction Status Date / Time No Known Allergies Allergy Verified 08/03/24 15:48 Review of Systems 2 Review of Systems: CONSTITUTIONAL: Denies body aches, fever, chills ENT: Denies rhinorrhea, congestion, sore throat, or otalgia. Reports dental pain CARDIOVASCULAR: Denies chest pain, palpitations RESPIRATORY: Denies cough or dyspnea. SKIN: Denies rash, itching, or wounds. MUSCULOSKELETAL: Denies myalgia. NEUROLOGIC: Denies headache, numbness, tingling, or weakness. [facility] Past Medical History Medical History History of high blood pressure History of diabetes mellitus Comments At time of signature, I have reviewed and agree with nursing past medical, surgical, social and family history unless otherwise noted. Please see nursing chart for further information. There is no relevant family history pertinent to the presenting complaint Exam 2 Narrative: GENERAL: Appears in pain; no acute distress. HEAD: Facial swelling and erythema with tenderness under left eye extending into left nose. EYES: EOMI. No redness or drainage. Conjunctivae normal. ENT: Dental pain location of #10,11. No significant erythema or swelling to gums. Gum is Tender. Poor dentition throughout. Left internal nare with lateral swelling, and facial swelling under left eye. Mucous membranes pink and moist. TMs normal bilaterally. Throat normal. no dysphagia, odynophagia, dysphonia, or dyspnea. No uvular deviation or soft palate edema. no induration below mandible, no neck pain. CHEST: No respiratory distress. SKIN: Warm, dry, Normal skin turgor. NEURO: No focal deficits. Alert and oriented x3. Gait steady. HENMT: Face images: 1. area of swelling, pain, and redness Course Course Emergency Course: Patient is aware of diagnosis, understands and agrees to treatment plan. Anticipatory guidance given. Patient agrees to follow-up as directed and is aware of reasons to seek care at the emergency department. Portions of this record may have been created with voice recognition software Level of Care: Express Care Visit Vital Signs Vital signs: Vital Signs Temperature 98.4 F 08/03/24 15:49 Pulse Rate 96 08/03/24 15:49 Respiratory Rate 20 08/03/24 15:49 Blood Pressure 139/61 08/03/24 15:49 Pulse Oximetry 99 08/03/24 15:49 Oxygen Delivery Room Air 08/03/24 15:49 Temperature 98.4 F 08/03/24 15:49 Pulse Rate 96 08/03/24 15:49 Respiratory Rate 20 08/03/24 15:49 Blood Pressure 139/61 08/03/24 15:49 Pulse Oximetry 99 08/03/24 15:49 Oxygen Delivery Room Air 08/03/24 15:49 MDM - Dental/Oral MDM Narrative Medical decision making narrative: Patients pain and complaint coupled with physical findings are consistent with dental abscess. Concern for facial cellulitis leading to infectious cavernous sinus; advised ER transfer. Pt refuses. Pt appears resistant to the information attempting to be provided regarding his condition and the associated risks. There are no focal signs of space occupying lesions that are compromising to the airway; Patient is non-toxic appearing. The floor of the mouth is soft with no signs of Juan Carlos's Angina; Patient is without trismus or drooling and able to swallow secretions. The patient is AA&Ox3. The patient has demonstrated concrete thinking/reasoning, has maintained an behavioral therapist/reasonable conversation, appears to have intact insight/judgment/reason and therefore has capacity to make decisions. Given the patients presentation, we communicated our concern for facial cellulitis in laymans terms. The patient verbalized an understanding. The patient is aware the evaluation is incomplete & many troublesome conditions have not been r/o. We have discussed the need for further ED evaluation. We have discussed the range of possible dx, potential testing & treatment options. Our discussions included the potential outcomes of leaving AMA, including worsening of their condition, becoming permanently disabled/in pain/critically ill, or . Despite these efforts, we were unable to convince the pt to go to the ER. The patient is refusing any further care and is leaving against medical advice. We have attempted to offer tx/rx/guidance for any dangerous conditions which are most likely and/or dangerous. We have answered all questions and have implored the patient to go to ER [facility] to complete the w/u. A staff member witnessed the patient consenting to AMA. Differential Diagnosis Differential diagnosis: Likely gingival abscess, dental caries, toothache, dental abscess, fracture of tooth, aphthous ulcer and other (cellulitis, infectious cavernous sinus) Discharge Plan Discharge Clinical Impression: Cellulitis of face Patient Disposition: Left Against Medical Advice Condition: Stable Instructions: Antibiotic Form, Cellulitis (ED) Additional Instructions: You were advised to transfer to the ER and you decline at this time. You were made aware of the risk of refusal including worsening of your condition and . Report to the ER immediately by calling 911 for any worsening symptoms. You are at risk for An infection of the cavernous sinus called?cavernous sinus thrombosis ([employer] LIBRARIAN).?It's a rare, life-threatening condition that occurs when a blood clot forms in the cavernous sinuses.?The clot can be caused by a bacterial infection that spreads from the face or skull.? Follow up with your primary care provider and dentist Patient Language: Surinamese Prescriptions: New ibuprofen 800 mg tablet 800 mg PO TID PRN (Reason: pain) Qty: 15 0RF lidocaine HCl [Lidocaine Viscous] 2 % solution 1 applic mucous membrane TID PRN (Reason: pain) Qty: 100 0RF Rx Instructions: apply with cotton swab to site of pain amoxicillin-pot clavulanate 875-125 mg tablet 1 tablet PO Q12H 7 Days Qty: 14 0RF No Action lisinopril 10 mg tablet 10 mg DIRECTED meloxicam 15 mg tablet Follow-up/Referrals: Josias,ANJU Faye [Primary Care Provider] - Time of Disposition: 16:25
== END 2024-08-03 16:30 | disposition left against medical advice (07) ==
PROVIDERS: Emergency Provider Nurse Practitioner Family; PCP Nurse Practitioner
DX: L03.211 Cellulitis of face (principal); I10 Essential (primary) hypertension; E11.9 Type 2 diabetes mellitus without complications
CPT/HCPCS: 99213; G0463

== ENCOUNTER 2024-08-05 09:29 | Inpatient (IN) | payer OTHER, SELFPAY ==
[2024-08-05] VITALS (17 sets, daily range): BP systolic 127–152; BP diastolic 83–101; PULSE 74–107; RESP 14–21; TEMP 36.6–36.7; O2SAT 97–100; BMI 28.5
--- NOTE | ~2024-08-05 | CT_ITS ---
EXAMINATION: CT facial bones w con DATE: 08/05/2024 11:18 INDICATION: Left orbital swelling. TECHNIQUE: Computed tomography (CT) of the facial bones and maxillofacial region was performed with 7 5 mL Omnipaque 350 intravenous contrast. Automated exposure control and iterative reconstruction tech [employer] were employed. The dose-length product was 287.87 mGy-cm. COMPARISON: None. FINDINGS: There is chronic encephalomalacia in right frontal lobe. There are old fracture deformities of the nasal bones and nasal processes of maxilla. There is mild mucosal thickening in the paranasal sinuses. The orbits are normal. There is left periorbital soft tissue swelling. At the junction of t he nose and left cheek, there is fat stranding and 4 mm rim-enhancing abscess containing gas and flui d. There is extensive dental disease. IMPRESSION: 1. 4 mm abscess at the junction of the nose and left cheek. 2. Chronic encephalomalacia in right frontal lobe. Reviewed, dictated and finalized at location A. ETING AUTOMATION ANALYST
--- NOTE | 2024-08-05 09:42 | PC.NURSE ---
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
--- NOTE | 2024-08-05 10:00 | ECG_ITS ---
Test Date: 2024-08-05 10:36:50 Measurements Intervals [place] Rate: 96 P: 29 DC: 158 QRS: 9 QRSD: 81 T: 24 QT: 334 QTc: 422 Interpretive Statements SINUS RHYTHM BASELINE ARTIFACT- II, III, AVR, AVL, AVF NORMAL ECG No previous ECG available for comparison Electronically Signed On 08-05-2024 10:38:42 [employer] by Librado Esposito D.O.
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
--- OUTSIDE RECORDS SUMMARY | 2024-08-05 10:03 | XMS_ITS | Clinical Summary ---
Author Organization [facility] Address [address] [place] [address]. [place] [address] [place] [address] Care Team Providers Care Fire Tower Keeper Name Role Phone Stephanie Ferrara NP Primary Care Provider [phone] Allergies Active Allergy Reactions Criticality Noted Date Comments Atorvastatin Unknown 02/21/2022 Didn't feel well Glipizide Unknown 02/21/2022 Didn't feel well Monosodium Glutamate Unknown 12/02/2019 palpitations Medications doxylamine (UNISOM) 25 MG tabletIndication s:Insomnia, unspecified type Take 1 tablet (25 mg total) by mouth nightly as needed for Sleep. 30 tablet 02/21/2022 Active insulin detemir (LEVEMIR) 100 UNIT/ML PENIndications:T ype 2 diabetes mellitus with hyperglycemia, with long-term current use of insulin ([facility]) Inject 5 Units into the skin 2 (two) times daily. 3 mL 5 04/24/2023 Active Lancets (ONETOUCH ULTRASOFT) lancetsIndicatio ns:Type 2 diabetes mellitus with hyperglycemia, with long-term current use of insulin ([facility]) Check blood sugar three times a day before meals. 100 each 1 04/24/2023 Active Blood Glucose Monitoring Suppl (ONE TOUCH ULTRA 2) w/Device KitIndications:T ype 2 diabetes mellitus with hyperglycemia, with long-term current use of insulin ([facility]) Check blood sugar three times a day before meals. 1 kit 04/24/2023 Active Glucose Blood test stripIndications :Type 2 diabetes mellitus with hyperglycemia, with long-term current use of insulin ([facility]) Check blood sugar three times a day before meals. 300 strip 1 04/24/2023 Active metFORMIN (GLUCOPHAGE) 500 MG tabletIndication s:Type 2 diabetes mellitus with hyperglycemia, with long-term current use of insulin ([facility]) TAKE ONE TABLET (500 MG) ORALLY TWICE A DAY 30 tablet 06/08/2023 Active meloxicam (MOBIC) 15 MG tabletIndication s:Arthritis TAKE 1 TABLET (15 MG TOTAL) BY MOUTH DAILY. 90 tablet 11/09/2023 Active lisinopril (PRINIVIL) 10 MG tabletIndication s:Hypertension, unspecified type TAKE 1 TABLET (10 MG TOTAL) BY MOUTH DAILY. 90 tablet 11/09/2023 Active Active Problems Problem Noted Date Diagnosed Date Hyperlipidemia, unspecified hyperlipidemia type 09/21/2021 Arthralgia, unspecified joint 09/21/2021 Microalbuminuria 09/21/2021 Erectile dysfunction, unspecified erectile dysfu nction type 09/21/2021 Diabetes mellitus ([facility]) 05/13/2019 Immunizations Name Administration Dates Next Due PFIZER COVID-19 (ORIGINAL FO RMULATION, PURPLE CAP) mRNA, LNP-S, PF, 30 MCG/0.3 ML DOSE 04/14/2021,02/16/2021 Family History Medical History Relation Comments Alzheimers Mother Rheumatoid Arthritis Mother Relation Status Comments Mother Social History Tobacco Use Types Packs/Day Years Used Date Smoking Tobacco: Never Smokeless Tobacco: Never Comments:pt does not smoke Alcohol Use Standard Drinks/Week Comments Yes 23.3 (1 standard drink = 0.6 oz pure alcohol) PHQ-2 Answer Date Recorded PHQ-2 Score - If the patient scores above 3, please move on to questions 3-9 3 02/21/2022 Sex and Gender Information Value Date Recorded Sex Assigned at Not on file Legal Sex Male 11:57 AM CDT Gender Identity Not on file Sexual Orientation Not on file Last Filed Vital Signs Vital Sign Reading Time Taken Comments Blood Pressure 126/80 04/24/2023 12:43 PM CDT Pulse 95 04/24/2023 12:43 PM CDT Temperature 36.1 ??C (96.9 ??F) 04/24/2023 12:43 PM C DT Respiratory Rate 16 04/24/2023 12:43 PM CDT Oxygen Saturation 97% 04/24/2023 12:43 PM CDT Inhaled Oxygen Concentration - - Weight 83 kg (183 lb) 04/24/2023 12:43 PM CDT Height 172.7 cm (5' 8 ) 04/24/2023 12:43 PM CDT Body Mass Index 27.83 04/24/2023 12:43 PM CDT Plan of Treatment Health Maintenance Due Date Last Done Comments Colorectal Cancer Screening Colonoscopy (10 Years) 1962 Kidney Health Evaluation 1962 Pneumococcal Vaccine: Pediatrics (0 to 5 Years) and At-Risk Patients (6 to 64 Years) (1 of 2 - PCV) 1968 PHQ-2 (Physician [place]) 1974 Diabetes: Retinopathy Eye Exam 1980 Hepatitis C 1980 DTaP, Tdap and Td Vaccines (1 - Tdap) 1981 Zoster Vaccines (1 of 2) 2012 Lipid Panel 09/06/2022 09/06/2021 RSV Immunization or 60+ Years (1 - Risk 60-74 years 1-dose series) 2022 Hemoglobin A1C 07/25/2023 04/24/2023, 02/01, 09/06/2021, Additional history exists COVID-19 Vaccine ( season) 2024 04/14/2021, 02/16/2021 Influenza Adult (#1) 2024 Annual Physical 04/24/2024 04/24/2023, 02/01, 02/08/2021 PHQ-2 (Physician [employer]) 07/03/2024 Meningococcal B Vaccine Aged Out No l onger eligible based on patient's age to complete this topic Meningococcal Vaccine Aged Out No moses elva eligible based on patient's age to complete this topic RSV Immunizations Under 20 Months Aged Out No longer eligible based on patient's age to complete this topic Procedures Procedure Name Priority Date/Time Associated Diagnosis Comments HEMOGLOBIN, GLYCOSYLATED Routine 04/24/2023 Type 2 diabetes mellitus with hyperglycemia, with long-term current use of insulin ([facility]) LIPID PANEL Routine 09/06/2021 3:07 PM SWITCHBOARD INSPECTOR Screening for lipoid disorders from Last 3 Months or Most Recently Relevant to Health Maintenance Results * HEMOGLOBIN, GLYCOSYLATED (04/24/2023) HGB A1C 9.1 % [address], [place] 04/24/2023 Stephanieanabelle Ferrara [facility] Final Res ult [address] [place] [address] [place] [address], [place] [phone] * (ABNORMAL) LIPID PANEL (09/06/2021 3:07 PM SWITCHBOARD INSPECTOR) CHOLESTEROL 257(H) 100 - 199 mg/dL [facility] 1 TRIGLYCERIDES 132 0 - 149 mg/dL [facility] 1 HDL 74 >39 mg/dL [facility] 1 VLDL CALCULATION 23 5 - 40 mg/dL [facility] 1 LDL (CALCULATED) 160(H) 0 - 99 mg/dL [facility] 1 09/06/2021 3:07 PM SWITCHBOARD INSPECTOR 09/06/2021 Narrative [facility] - 09/07/2021 11:07 AM SWITCHBOARD INSPECTOR Performed at: ??01 - [facility] [address] ??[id number] [facility] Author: Leon Rees PhD, Phone: ??[phone] Stephanieanabelle Ferrara [facility] Final Res ult Performing Organization Address [facility] Co de Phone Number [facility] [address] [place] [address] [facility] 1 from Last 3 Months or Most Recently Relevant to Health Maintenance Insurance [employer] Care Teams Fire Tower Keeper Relationship Specialty Start Date End Date Stephanie Ferrara NP [address] [place] [address] PCP - General NURSE PRACTITIONER 02/03/21
--- OUTSIDE RECORDS SUMMARY | 2024-08-05 10:03 | XMS_ITS | Referral Summary ---
Author Organization [facility] Address [address] [place] [id number] Care Team Providers Care Hadoop Developer Name Role Phone Samm Govea MD Primary Care Provider [phone] Allergies Active Allergy Reactions Criticality Noted Date Comments Monosodium Glutamate Unknown 12/02/2019 palpitations Medications lisinopriL (PRINIVIL,ZESTR [place]) 10 mg tabletIndicatio ns:hypertension Take 10 mg by mouth offset pressman before breakfast Active empagliflozin (JARDIANCE) 25 mg tabletIndicatio ns:type 2 diabetes mellitus Take 25 mg by mouth offset pressman before breakfast Active vitamin E (AQUASOL E) 200 unit capsuleIndicati ons:supplement Take 200 Units by mouth offset pressman before breakfast Active potassium gluconate 500 mg (83 mg) tabletIndicatio ns:hypokalemia prevention Take 200 mg by mouth daily as needed Active docusate sodium (COLACE) 100 mg capsuleIndicati ons:constipatio n Take 1 capsule (100 mg total) by mouth 2 (two) times a day as needed for constipation (while taking narcotics) 30 capsule 1 0 Active acetaminophen (TYLENOL) 325 mg tablet Take 2 tablets (650 mg total) by mouth every 6 (six) hours as needed for pain 100 tablet 1 0 Active aspirin 325 mg tablet Take 1 tablet (325 mg total) by mouth 2 (two) times a day for 14 days 28 tablet 0 Active oxyCODONE (ROXICODONE) 5 mg immediate release tabletIndicatio ns:Pain 1-2 tablets q4-6 hours PRN pain 40 tablet 0 Active Active Problems Problem Noted Date Diagnosed Date Shoulder arthritis 12/03/2019 Overview (12/03/2019): Added automatically from request for surgery [id number] Social History Tobacco Use Types Packs/Day Years Used Date Smoking Tobacco: Never Smokeless Tobacco: Never Alcohol Use Standard Drinks/Week Comments Yes 14 (1 standard drink = 0.6 oz pu re alcohol) Sex and Gender Information Value Date Recorded Sex Assigned at Not on file Legal Sex Male 7:44 PM GEOSPATIAL ANALYST Gender Identity Not on file Sexual Orientation Not on file Last Filed Vital Signs Vital Sign Reading Time Taken Comments Blood Pressure 132/77 12/25/2019 11:47 AM CDT Pulse 90 12/25/2019 11:47 AM CDT Temperature 37.3 ??C (99.1 ??F) 12/25/2019 11:47 AM C DT Respiratory Rate 18 12/25/2019 11:47 AM CDT Oxygen Saturation 98% 12/25/2019 11:47 AM CDT Inhaled Oxygen Concentration - - Weight 83.5 kg (184 lb) 12/24/2019 7:09 AM CDT Height 172.7 cm (5' 8 ) 12/24/2019 7:09 AM CDT Body Mass Index 27.98 12/24/2019 7:09 AM CDT Plan of Treatment Not on file Medical Devices Implanted Type Area Termite Inspector Device Identifier Shelf Expiration Date Model / Serial / Lot [employer] [id number] Delta Xtend 27mm Cementless Shoulder Standard Component Glenoid Latex Free - [id number] Implanted:Qty: 1 on 12/24/2019 by Chico Collins MD at [facility] Right: Shoulder [employer] [id number] 08/02/2024 [id number] / / [id number] [employer] [id number] Delta Xtend 4.5mm 48mm Lock Shoulder Glenoid Screw Bone Metaglene - [id number] Implanted:Qty: 1 on 12/24/2019 by Chico Collins MD at [facility] Right: Shoulder [employer] [id number] 07/02/2024 [id number] / / [id number] [employer] [id number] Delta Xtend 4.5mm 42mm Lock Shoulder Glenoid Screw Bone Metaglene - [id number] Implanted:Qty: 1 on 12/24/2019 by Chico Collins MD at [facility] Right: Shoulder [employer] [id number] 08/02/2024 [id number] / / [id number] [employer] [id number] Component Glenoid Delta Xtend +4mm Eccentric Od42mm - [id number] Implanted:Qty: 1 on 12/24/2019 by Chico Collins MD at [facility] Right: Shoulder [employer] [id number] 10/01/2023 [id number] / / [id number] [employer] [id number] Global Unite 12mm 120mm Modular Shoulder Standard Stem Humeral - [id number] Implanted:Qty: 1 on 12/24/2019 by Chico Collins MD at [facility] Right: Shoulder [employer] [id number] 11/30/2028 [id number] / / [id number] [employer] [id number] Delta Xtend Cementless Modular Shoulder Right Epiphysis 155d 1 Latex Free - [id number] Implanted:Qty: 1 on 12/24/2019 by Chico Collins MD at [facility] Right: Shoulder [employer] [id number] 08/02/2024 [id number] / / [id number] [employer] [id number] Delta Xtend 42mm Shoulder +3mm Standard Cup Humeral Polyethylene Latex Free - [id number] Implanted:Qty: 1 on 12/24/2019 by Chico Collins MD at [facility] Right: Shoulder [employer] [id number] 06/01/2024 [id number] / / [id number] Explanted Type Area Termite Inspector Device Identifier Shelf Expiration Date Model / Serial / Lot [employer] [id number] Steinmann 3/32in 9in 2 Trocar Pin Fixation Nonsterile - [id number] Explanted:Qty: 1 on 12/24/2019 by Chico Collins MD at [facility] Right: Shoulder [employer] [id number] S / / Insurance BL CHOICE PRF PPO [place] Advance Directives For more information, please contact: [phone] * Full Code (Latest Code Status on File) Date Activated Date Inactivated Comments 12/24/2019 2:33 PM 12/25/2019 6:44 PM Care Teams Hadoop Developer Relationship Specialty Start Date End Date Samm Govea MD [address] [place] [address] PCP - General 12/24/19
--- OUTSIDE RECORDS SUMMARY | 2024-08-05 10:03 | XMS_ITS | Clinical Summary ---
Author Organization [facility] Address [address] [place] [id number] Care Team Providers Care Wire Stripper Name Role Phone Samm Govea MD Primary Care Provider [phone] Allergies Active Allergy Reactions Criticality Noted Date Comments Monosodium Glutamate Unknown 12/02/2019 palpitations Medications lisinopriL (PRINIVIL,ZESTR [place]) 10 mg tabletIndicatio ns:hypertension Take 10 mg by mouth manager user interface before breakfast Active empagliflozin (JARDIANCE) 25 mg tabletIndicatio ns:type 2 diabetes mellitus Take 25 mg by mouth manager user interface before breakfast Active vitamin E (AQUASOL E) 200 unit capsuleIndicati ons:supplement Take 200 Units by mouth manager user interface before breakfast Active potassium gluconate 500 mg [...] (12/03/2019): Added automatically from request for surgery [id number] Surgical History Surgery Date Site/Laterality Comments NO PAST SURGERIES Family History Medical History Relation Name Comments Anesthesia problems Neg Hx Social History Tobacco Use Types Packs/Day Years Used Date Smoking Tobacco: Never Smokeless Tobacco: Never Alcohol Use Standard Drinks/Week Comments Yes 14 (1 standard drink = 0.6 oz pu re alcohol) Sex and Gender Information Value Date Recorded Sex Assigned at Not on file Legal 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 Gender Identity Not on file Sexual Orientation Not on file Obstetrics History Last Filed Vital Signs Vital Sign Reading [...] on file Medical Devices Implanted Type Area Medicare Specialist Device Identifier Shelf Expiration Date Model / Serial / Lot [employer] [id number] Delta Xtend 27mm Cementless Shoulder Standard Component Glenoid Latex Free - [id number] Implanted:Qty: 1 on 12/24/2019 by Chico Collins MD at [facility] Right: Shoulder [employer] [id number] 08/02/2024 [id number] / / [id number] [employer] [id number] Delta Xtend 4.5mm 48mm Lock Shoulder Glenoid Screw Bone Metaglene - [id number] Implanted:Qty: 1 on 12/24/2019 by Chico Collins MD at [facility] Right: Shoulder [employer] [id number] 07/02/2024 [id number] / / [id number] [employer] [id number] Delta Xtend 4.5mm 42mm Lock Shoulder Glenoid Screw Bone Metaglene - [id number] Implanted:Qty: 1 on 12/24/2019 by Chico Collins MD at [facility] Right: Shoulder [employer] [id number] 08/02/2024 [id number] / / [id number] [employer] [id number] Component Glenoid Delta Xtend +4mm Eccentric Od42mm - [id number] Implanted:Qty: 1 on 12/24/2019 by Chico Collins MD at [facility] Right: Shoulder [employer] [id number] 10/01/2023 [id number] / / [id number] [employer] [id number] Global Unite 12mm 120mm Modular Shoulder Standard Stem Humeral - [id number] Implanted:Qty: 1 on 12/24/2019 by Chico Collins MD at [facility] Right: Shoulder [employer] [id number] 11/30/2028 [id number] / / [id number] [employer] [id number] Delta Xtend Cementless Modular Shoulder Right Epiphysis 155d 1 Latex Free - [id number] Implanted:Qty: 1 on 12/24/2019 by Chico Collins MD at [facility] Right: Shoulder [employer] [id number] 08/02/2024 [id number] / / [id number] [employer] [id number] Delta Xtend 42mm Shoulder +3mm Standard Cup Humeral Polyethylene Latex Free - [id number] Implanted:Qty: 1 on 12/24/2019 by Chico Collins MD at [facility] Right: Shoulder [employer] [id number] 06/01/2024 [id number] / / [id number] Explanted Type Area Medicare Specialist Device Identifier Shelf Expiration Date Model / Serial / Lot [employer] 1624-109ns Rena 3/32in 9in 2 Trocar Pin Fixation Nonsterile - [id number] Explanted:Qty: 1 on 12/24/2019 by Chico Collins MD at [facility] Right: Shoulder [employer] 1624-109N S / / Insurance BL CHOICE PRF PPO [place] Advance Directives For more information, please contact: [phone] * Full Code (Latest Code Status on File) Date Activated Date Inactivated Comments 12/24/2019 2:33 PM 12/25/2019 6:44 PM Care Teams Wire Stripper Relationship Specialty Start Date End Date Samm Govea MD [address] [place] [address] PCP - General 12/24/19
--- NOTE | 2024-08-05 10:05 | ED_ITS ---
HPI - Eye Problem General Chief complaint: Eye Problems Stated complaint: swollen eye Time Seen by Provider: 08/05/24 09:38 Source: patient Mode of arrival: ambulatory Limitations: no limitations History of Present Illness HPI Narrative: This is a 63-year-old male who presents to the ED for chief complaint of left eye swelling and pain over the past 2-3 days. Patient reports that he was seen in urgent care initially and was advised to go to the ER for left periorbital swelling. States that he left against medical advice and has been taking oral Augmentin since yesterday. States that the swelling and pain is worse. He believes this may have been caused by dental decay/broken tooth with infection for the past several weeks. denies any injury to the eye. Denies fevers, chills, nausea, vomiting. States that his vision in the right eye at baseline is basically non-existent due to diabetes. States his last A1c was over 11. He does not feel that his left eye vision has worsened since onset of symptoms. Triage note today mentions his right eye is swollen, however his symptoms are strictly limited to the left side. Related Data Home Medications ?Medication ?Instructions ?Recorded ?Confirmed ?Last Taken ?Type lisinopril 10 mg tablet 10 mg DIRECTED 07/13/22 05/18/23 Unknown History meloxicam 15 mg tablet mg 08/03/24 Unknown History Allergies Allergy/AdvReac Type Severity Reaction Status Date / Time No Known Allergies Allergy Verified 08/03/24 15:48 Review of Systems 2 Review of Systems: All systems as dictated in [facility] Past Medical History Medical History History of high blood pressure History of diabetes mellitus Exam 2 Narrative: GENERAL: Well-appearing, well-nourished, and in no acute distress. HEAD: Normocephalic, atraumatic. EYES: Left periorbital erythema, swelling and tenderness noted. There is no proptosis. He is able to PERRLA and EOMI. There is mild pain reported with EOMs on the left side. ENT: Nares clear, no rhinorrhea or epistaxis. Mucous membranes moist. Oropharynx without tonsillar hypertrophy exudate or other lesions. NECK: Supple. No adenopathy or masses. CHEST: No respiratory distress. Clear to auscultation. No wheezes rales or rhonchi HEART: Regular rate and rhythm. No murmur heard. Normal peripheral pulses. ABDOMEN: Soft, nontender, nondistended, normal active bowel sounds. MSK: Normal range of motion. No edema. SKIN: Warm, dry, no rash. NEURO: Alert and oriented x4. No focal deficits. PSYCH: Normal mood and affect. Course Consultations Consultation #1: Spoke with Dr. Dubon ( ophthalmology ): states that he is happy to consult on the patient but does not feel that there needs to be any Ophthalmology could intervention at this time and that the patient is likely not exhibiting signs of a true orbital cellulitis. Recommends talking to facial plastics. Date: 08/05/24 Consultation #2: Spoke with Dr. Ayala (plastics): he is also stating that there would be no intervention from a plastics standpoint. States that the abscess is not drainable Or amenable to surgical intervention based on the imaging and presentation. He is recommending a medicine admission and that this should be treated with IV antibiotics as far as he is concerned, but is happy to consult on the patient. Date: 08/05/24 Vital Signs Vital signs: Vital Signs Temperature 97.9 F 08/05/24 09:34 Pulse Rate 107 H 08/05/24 09:34 Respiratory Rate 20 08/05/24 09:34 Blood Pressure 143/96 H 08/05/24 09:34 Pulse Oximetry 99 08/05/24 09:34 Oxygen Delivery Room Air 08/05/24 09:34 Temperature 97.9 F 08/05/24 09:34 Pulse Rate 82 08/05/24 16:00 Respiratory Rate 17 08/05/24 16:00 Blood Pressure 127/84 08/05/24 15:25 Pulse Oximetry 100 08/05/24 16:00 Oxygen Delivery Room Air 08/05/24 09:34 MDM - Eye Problem MDM Narrative Medical decision making narrative: This is a 63-year-old male noncompliant diabetic who presents to the ED for chief complaint of left facial swelling, redness and tenderness. Vitals are showing elevated heart rate initially but otherwise stable. Lab work showing normal white count on the CBC and a normal lactate. Glucose elevated at 354 on arrival but no evidence of DKA. CRP quite elevated at 22.7. CT facial bones with contrast: IMPRESSION: 1. 4 mm abscess at the junction of the nose and left cheek. 2. Chronic encephalomalacia in right frontal lobe.. Presentation concerning for a facial cellulitis with abscess. There appears to be mild a periorbital cellulitis, however clinically does not presenting as a true orbital cellulitis. Patient was started on vancomycin and cefepime for broad-spectrum coverage. Patient will be admitted to the hospital service after multiple consult to Ophthalmology and Facial plastics at the tertiary care centers. They are advising that this would be a medical admit and there is nothing surgically to do at this point. Patient has been accepted by [facility] and will go to the medical floor. Lab Data 08/05/24 10:29 08/05/24 10:29 Labs: Lab Results 08/05/24 08/05/24 08/05/24 Range/Units 10:29 12:40 17:37 WBC 9.1 (4.5-10.0) K/mm3 RBC 4.74 (4.6-6.20) M/mm3 Hgb 14.9 (14.0-18.0) g/dL Hct 44.2 (42.0-52.0) % MCV 93.2 (80-100) fl MCH 31.4 (26-34) pg MCHC 33.7 (32-36) g/dl RDW 11.7 (11.5-14.5) % Plt Count 199 (150-375) k/mm3 MPV 10.4 (7.4-10.4) fl Immature Gran % (Auto) 1.0 H (0-0.5) % Neut % (Auto) 81.7 H (45.5-73.1) % Lymph % (Auto) 8.2 L (18.3-44.2) % Gregg % (Auto) 7.9 (2.6-8.5) % Eos % (Auto) 0.8 (0-4.4) % Baso % (Auto) 0.4 (0.2-1.2) % Lymph # (Auto) 0.74 L (0.9-3.2) K/mm3 Gregg # (Auto) 0.7 H (0.1-0.6) K/mm3 Eos # (Auto) 0.1 (0-0.3) K/mm3 Baso # (Auto) 0.0 (0.0-0.1) K/mm3 Abs Immat Gran (auto) 0.09 H (0.00-0.031) K/mm3 Absolute Neuts (auto) 7.4 H (1.3-6.7) K/mm3 Absolute Nucleated RBC 0.000 (0.0-0.012) K/mm3 Nucleated RBC % 0.0 (0.0-0.2) % PT 12.9 (11.1-14.7) Seconds INR 0.9 APTT 30.4 (22.3-36.8) Seconds Sodium 134 L (137-145) mmol/L Potassium 4.3 (3.4-5.0) mmol/L Chloride 97 L (98-107) mmol/L Carbon Dioxide 28 (22-30) mmol/L Anion Gap 9 (4-12) mmol/L BUN 13 D (9-20) mg/dL Creatinine 0.52 L (0.7-1.3) mg/dL Estim Creat Clear Calc 125 ml/min Estimated GFR > 60 (59 - ) Glucose 354 H (65-110) mg/dL Lactic Acid 1.3 (0.7-2.0) mmol/L Calcium 9.1 (8.4-10.2) mg/dL Total Bilirubin 0.8 (0.2-1.3) mg/dL AST 20 (17-59) U/L ALT 20 (6-50) U/L Alkaline Phosphatase 122 (38-126) U/L C-Reactive Protein 22.7 H (<1.0) mg/dL Total Protein 7.0 (6.3-8.2) g/dL Albumin 3.6 (3.5-5.1) g/dL Urine Color Yellow (Yellow) Urine Appearance Clear (Clear) Urine pH 6.0 (5.0-9.0) Ur Specific Frakes > 1.045 H (1.001-1.035) Urine Protein 2+ H (Negative) mg/dL Urine Glucose (UA) 3+ H (Negative) mg/dL Urine Ketones 1+ H (Negative) mg/dL Ur Blood (Man) Negative (Negative) Urine Nitrate Negative (Negative) Urine Bilirubin Negative (Negative) Urine Urobilinogen 0.2 (<2.0) mg/dL Add Ur Microanalysis Reviewed Leukocyte Esterase Rfl Negative (Negative) SYED/UL Urine RBC 0-2 (0-2) /hpf Urine WBC 0-5 (0-3) /hpf Ur Squamous Epith Cells None seen (Few) /hpf Urine Bacteria None seen /hpf Urine Casts 3-5 Nasal MRSA (PCR) Pending Discharge Plan Discharge Clinical Impression: Cellulitis and abscess of face Patient Disposition: Still a Patient Condition: Stable Instructions: Antibiotic Form Patient Language: Japanese Prescriptions: No Action lisinopril 10 mg tablet 10 mg DIRECTED meloxicam 15 mg tablet ibuprofen 800 mg tablet 800 mg PO TID PRN (Reason: pain) Qty: 15 0RF lidocaine HCl [Lidocaine Viscous] 2 % solution 1 applic mucous membrane TID PRN (Reason: pain) Qty: 100 0RF Rx Instructions: apply with cotton swab to site of pain amoxicillin-pot clavulanate 875-125 mg tablet 1 tablet PO Q12H 10 Days Qty: 20 0RF Follow-up/Referrals: Josias,ANJU Faye [Primary Care Provider] -
[2024-08-05] MEDS: CEFEPIME 1 GM/NS 50 ML 1 GM/50 ML BAG IVPB (10:47)
[2024-08-05] MEDS: SODIUM CHLORIDE 0.9% IV 1,000 ML 999 ML IV CONT ×2 (10:47→12:38)
[2024-08-05] MEDS: KETOROLAC 15 MG/ML VIAL (*BKC) IV PUSH (10:47)
[2024-08-05 10:48] LABS: Basophils Percent Auto 0.4 % (0.2-1.2); Eosinophils Absolute Auto 0.1 K/mm3 (0-0.3); Eosinophils Percent Auto 0.8 % (0-4.4); Hematocrit 44.2 % (42.0-52.0); Hemoglobin 14.9 g/dL (14.0-18.0); Immature Granulocyte Absolute 0.09 K/mm3 (0.00-0.031); Lymphocytes Absolute Auto 0.74 K/mm3 (0.9-3.2); Lymphocytes Percent Auto 8.2 % (18.3-44.2); Mean Corpuscular HGB Conc 33.7 g/dl (32-36); Mean Corpuscular Hemoglobin 31.4 pg (26-34); Mean Corpuscular Volume 93.2 fl (80-100); Mean Platelet Volume 10.4 fl (7.4-10.4); Monocytes Absolute Auto 0.7 K/mm3 (0.1-0.6); Monocytes Percent Auto 7.9 % (2.6-8.5); Neutrophils Absolute Auto 7.4 K/mm3 (1.3-6.7); Neutrophils Percent Auto 81.7 % (45.5-73.1); Platelet Count Result 199 k/mm3 (150-375); Red Blood Count 4.74 M/mm3 (4.6-6.20); Red Cell Distribution Width 11.7 % (11.5-14.5); White Blood Count 9.1 K/mm3 (4.5-10.0)
[2024-08-05 10:55] LABS: Lactic Acid Reflex 1.3 mmol/L (0.7-2.0)
[2024-08-05 10:56] LABS: INR 0.9; Prothrombin Time 12.9 Seconds (11.1-14.7)
[2024-08-05 10:57] LABS: Partial Thromboplastin Time 30.4 Seconds (22.3-36.8)
[2024-08-05 10:58] LABS: Alanine Aminotransferase 20 U/L (6-50); Albumin Level 3.6 g/dL (3.5-5.1); Alkaline Phosphatase 122 U/L (38-126); Anion Gap 9 mmol/L (4-12); Aspartate Amino Transferase 20 U/L (17-59); Bilirubin,Total 0.8 mg/dL (0.2-1.3); Blood Urea Nitrogen 13 mg/dL (9-20); Calcium 9.1 mg/dL (8.4-10.2); Carbon Dioxide 28 mmol/L (22-30); Chloride 97 mmol/L (98-107); Estimated CRCL calculation 125 ml/min; Estimated Glomerular Filt Rate > 60; Glucose 354 mg/dL (65-110); Potassium 4.3 mmol/L (3.4-5.0); Sodium 134 mmol/L (137-145)
[2024-08-05 11:07] LABS: CRP 22.7 mg/dL (<1.0)
--- NOTE | 2024-08-05 11:21 | PC.NURSE ---
pt reports being unable to urinate fro UA at this time. provided a urinal and educated pt to use call light with any urge.
--- OUTSIDE RECORDS SUMMARY | 2024-08-05 11:33 | XMS_ITS | Clinical Summary ---
Author Organization [facility] Address [address] [place] [address]. [place] [address] [place] [address] Care Team Providers Care Senior It Project Manager Name Role Phone Stephanie Ferraar NP Primary Care Provider [phone] Allergies Active Allergy Reactions Criticality Noted Date [...] hyperglycemia, with long-term current use of insulin ([facility]) Inject 5 Units into the skin 2 (two) times daily. 3 mL 5 04/24/2023 Active Lancets (ONETOUCH ULTRASOFT) lancetsIndicatio ns:Type 2 diabetes mellitus with hyperglycemia, with long-term current use of insulin ([facility]) Check blood sugar three times a day before meals. 100 each 1 04/24/2023 Active Blood Glucose Monitoring Suppl (ONE TOUCH ULTRA 2) w/Device KitIndications:T ype 2 diabetes mellitus with hyperglycemia, with long-term current use of insulin ([facility]) Check blood sugar three times a day before meals. 1 kit 04/24/2023 Active Glucose Blood test stripIndications :Type 2 diabetes mellitus with hyperglycemia, with long-term current use of insulin ([facility]) Check blood sugar three times a day before meals. 300 strip 1 04/24/2023 Active metFORMIN (GLUCOPHAGE) 500 MG tabletIndication s:Type 2 diabetes mellitus with hyperglycemia, with long-term current use of insulin ([facility]) TAKE ONE TABLET (500 MG) ORALLY TWICE [...] erectile dysfu nction type 09/21/2021 Diabetes mellitus ([facility]) 05/13/2019 Encounters Date Type Department Care Team Description 08/05/2024 Telephone [facility] Family Medicine - [place] [address] [facility] [address] [place] [address] Stephanie Ferrara, SECURITY COMPLIANCE SPECIALIST Other from Last 3 Months Immunizations Name Administration Dates Next Due PFIZER [...] Years) (1 of 2 - PCV) 1968 Diabetes: Retinopathy Eye Exam 1980 Hepatitis C [...] Physical 04/24/2024 04/24/2023, 02/01, 02/08/2021 PHQ-2 (Physician [place]) 07/03/2024 Meningococcal B Vaccine Aged Out No [...] hyperglycemia, with long-term current use of insulin ([facility]) LIPID PANEL Routine 09/06/2021 3:07 PM REGIONAL CONSTRUCTION MANAGER Screening for lipoid disorders from Last 3 Months or Most Recently Relevant to Health Maintenance Results * HEMOGLOBIN, GLYCOSYLATED (04/24/2023) HGB A1C 9.1 % [address], [place] 04/24/2023 Stephanieanabelle Ferrara SECURITY COMPLIANCE SPECIALIST LABORATORY Final Res ult [address], [place] [address] [facility] [address] [place] [address], * (ABNORMAL) LIPID PANEL (09/06/2021 3:07 PM REGIONAL CONSTRUCTION MANAGER) CHOLESTEROL 257(H) 100 - 199 mg/dL [facility] 1 TRIGLYCERIDES 132 0 - 149 mg/dL [facility] 1 HDL 74 >39 mg/dL [facility] 1 VLDL CALCULATION 23 5 - 40 mg/dL [facility] 1 LDL (CALCULATED) 160(H) 0 - 99 mg/dL [facility] 1 09/06/2021 3:07 PM REGIONAL CONSTRUCTION MANAGER 09/06/2021 Narrative [facility] - 09/07/2021 11:07 AM REGIONAL CONSTRUCTION MANAGER Performed at: ??01 - [facility] [address] ??[id number] Jig Grinder Set Up Operator: Leon Rees PhD, Phone: ??[phone] Stephanieanabelle Ferrara SECURITY COMPLIANCE SPECIALIST LABORATORY Final Res ult [facility] [address] [place] [address] [facility] 1 from Last 3 Months or Most Recently Relevant to Health Maintenance Insurance [employer] Care Teams Senior It Project Manager Relationship Specialty Start Date End Date Stephanie Ferrara NP [address] [place] [address] PCP - General NURSE PRACTITIONER 02/03/21
--- OUTSIDE RECORDS SUMMARY | 2024-08-05 11:34 | XMS_ITS | Encounter Summary ---
Author Organization [facility] Address [facility] [facility]. [place], [place] [address] [place] [address] Care Team Providers Care Document Processing Specialist Name Role Phone Stephanie Ferrara NP Primary Care Provider [phone] Reason for Visit * Reason Onset Date Comments Other 08/05/2024 Encounter Details Date Type Department Care Team (Late st Contact Info) Description 08/05/2024 Telephone [facility] Medical [facility] Family Medicine - [place] [address] [phone] Stephanie Ferrara, VIOLA [address] [place] [address] Other Social History Tobacco Use Types Packs/Day Years [...] on file Sexual Orientation Not on file documented as of this encounter Progress Notes * Alicja Mckeon - 08/05/2024 10:21 AM CST Ousmane called in, he just wanted to let you know he is admitted at [facility]. I think he said for a facial infection. IN DISKER documented in this encounter Plan of Treatment Not on file documented as of this encounter Visit Diagnoses Not on filedocumented in this encounter Additional Health Concerns Assessment Noted Time PHQ-9 Depression Total Score: 6 02/22/20 22 1:55 PM CDT documented as of this encounter Care Teams Document Processing Specialist Relationship Specialty Start Date End Date Stephanie Ferrara NP [address] [place] [address] PCP - General NURSE PRACTITIONER 02/03/21 documented as of this encounter
--- OUTSIDE RECORDS SUMMARY | 2024-08-05 11:34 | XMS_ITS | Referral Summary ---
Author Organization [facility] Address [address] [place] [id number] Care Team Providers Care Hospital Intern Name Role Phone Samm Govea MD Primary Care Provider [phone] Allergies Active Allergy Reactions Criticality Noted Date Comments Monosodium Glutamate Unknown 12/02/2019 palpitations Medications lisinopriL (PRINIVIL,ZESTR [place]) 10 mg tabletIndicatio ns:hypertension Take 10 mg by mouth information systems specialist before breakfast Active empagliflozin (JARDIANCE) 25 mg tabletIndicatio ns:type 2 diabetes mellitus Take 25 mg by mouth information systems specialist before breakfast Active vitamin E (AQUASOL E) 200 unit capsuleIndicati ons:supplement Take 200 Units by mouth information systems specialist before breakfast Active potassium gluconate 500 mg [...] (12/03/2019): Added automatically from request for surgery [id number] Social History Tobacco Use Types Packs/Day Years Used Date Smoking Tobacco: Never Smokeless Tobacco: Never Alcohol Use Standard Drinks/Week Comments Yes 14 (1 standard drink = 0.6 oz pu re alcohol) Sex and Gender Information Value Date Recorded Sex Assigned at Not on file Legal Sex Male 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 Gender Identity Not on file Sexual Orientation [...] on file Medical Devices Implanted Type Area Bit Tripoler Device Identifier Shelf Expiration Date Model / Serial / Lot [employer] [id number] Delta Xtend 27mm Cementless Shoulder Standard Component Glenoid Latex Free - [id number] Implanted:Qty: 1 on 12/24/2019 by Chico Collins MD at [facility] Right: Shoulder [employer] [id number] 08/02/2024 [id number] / / [id number] [employer] [id number] Delta Xtend 4.5mm 48mm Lock Shoulder Glenoid Screw Bone Metaglene - [id number] Implanted:Qty: 1 on 12/24/2019 by Chico Collins MD at [facility] Right: Shoulder [employer] [id number] 07/02/2024 [id number] / / [id number] [employer] [id number] Delta Xtend 4.5mm 42mm Lock Shoulder Glenoid Screw Bone Metaglene - [id number] Implanted:Qty: 1 on 12/24/2019 by Chico Collins MD at [facility] Right: Shoulder [employer] [id number] 08/02/2024 [id number] / / [id number] [employer] [id number] Component Glenoid Delta Xtend +4mm Eccentric Od42mm - [id number] Implanted:Qty: 1 on 12/24/2019 by Chico Collins MD at [facility] Right: Shoulder [employer] [id number] 10/01/2023 [id number] / / [id number] [employer] [id number] Global Unite 12mm 120mm Modular Shoulder Standard Stem Humeral - [id number] Implanted:Qty: 1 on 12/24/2019 by Chico Collins MD at [facility] Right: Shoulder [employer] [id number] 11/30/2028 [id number] / / [id number] [employer] [id number] Delta Xtend Cementless Modular Shoulder Right Epiphysis 155d 1 Latex Free - [id number] Implanted:Qty: 1 on 12/24/2019 by Chico Collins MD at [facility] Right: Shoulder [employer] [id number] 08/02/2024 [id number] / / [id number] [employer] [id number] Delta Xtend 42mm Shoulder +3mm Standard Cup Humeral Polyethylene Latex Free - [id number] Implanted:Qty: 1 on 12/24/2019 by Chico Collins MD at [facility] Right: Shoulder [employer] [id number] 06/01/2024 [id number] / / [id number] Explanted Type Area Bit Tripoler Device Identifier Shelf Expiration Date Model / Serial / Lot [employer] 1624-109ns Steinmann 3/32in 9in 2 Trocar Pin Fixation Nonsterile - [id number] Explanted:Qty: 1 on 12/24/2019 by Chico Collins MD at [facility] Right: Shoulder [employer] [id number] S / / Insurance [place] CHO[place]F [place] Advance Directives For more information, please contact: [phone] * Full Code (Latest Code Status on File) Date Activated Date Inactivated Comments 12/24/2019 2:33 PM 12/25/2019 6:44 PM Care Teams Hospital Intern Relationship Specialty Start Date End Date Samm Govea MD [address] [place] [address] PCP - General 12/24/19
--- OUTSIDE RECORDS SUMMARY | 2024-08-05 11:34 | XMS_ITS | Clinical Summary ---
Author Organization [facility] Address [address] [place] [id number] Care Team Providers Care Aircraft Log Clerk Name Role Phone Samm Govea MD Primary Care Provider Allergies Active Allergy Reactions Criticality Noted Date Comments Monosodium Glutamate Unknown 12/02/2019 palpitations Medications lisinopriL (PRINIVIL,ZESTR [place]) 10 mg tabletIndicatio ns:hypertension Take 10 mg by mouth emt/paramedic before breakfast Active empagliflozin (JARDIANCE) 25 mg tabletIndicatio ns:type 2 diabetes mellitus Take 25 mg by mouth emt/paramedic before breakfast Active vitamin E (AQUASOL E) 200 unit capsuleIndicati ons:supplement Take 200 Units by mouth emt/paramedic before breakfast Active potassium gluconate 500 mg [...] (12/03/2019): Added automatically from request for surgery [id number] Surgical History Surgery Date Site/Laterality Comments NO [...] on file Legal 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 Gender Identity Not on file Sexual Orientation [...] on file Medical Devices Implanted Type Area Electrical Development Engineer Device Identifier Shelf Expiration Date Model / Serial / Lot [employer] [id number] Delta Xtend 27mm Cementless Shoulder Standard Component Glenoid Latex Free - [id number] Implanted:Qty: 1 on 12/24/2019 by Chico Collins MD at [facility] Right: Shoulder [employer] [id number] 08/02/2024 [id number] / / [id number] [employer] [id number] Delta Xtend 4.5mm 48mm Lock Shoulder Glenoid Screw Bone Metaglene - [id number] Implanted:Qty: 1 on 12/24/2019 by Chico Collins MD at [facility] Right: Shoulder [employer] [id number] 07/02/2024 [id number] / / [id number] [employer] [id number] Delta Xtend 4.5mm 42mm Lock Shoulder Glenoid Screw Bone Metaglene - [id number] Implanted:Qty: 1 on 12/24/2019 by Chico Collins MD at [facility] Right: Shoulder [employer] [id number] 08/02/2024 [id number] / / [id number] [employer] [id number] Component Glenoid Delta Xtend +4mm Eccentric Od42mm - [id number] Implanted:Qty: 1 on 12/24/2019 by Chico Collins MD at [facility] Right: Shoulder [employer] [id number] 10/01/2023 [id number] / / [id number] [employer] [id number] Global Unite 12mm 120mm Modular Shoulder Standard Stem Humeral - [id number] Implanted:Qty: 1 on 12/24/2019 by Chico Collins MD at [facility] Right: Shoulder [employer] [id number] 11/30/2028 [id number] / / [id number] [employer] [id number] Delta Xtend Cementless Modular Shoulder Right Epiphysis 155d 1 Latex Free - [id number] Implanted:Qty: 1 on 12/24/2019 by Chico Collins MD at [facility] Right: Shoulder [employer] [id number] 08/02/2024 [id number] / / [id number] [employer] [id number] Delta Xtend 42mm Shoulder +3mm Standard Cup Humeral Polyethylene Latex Free - [id number] Implanted:Qty: 1 on 12/24/2019 by Chico Collins MD at [facility] Right: Shoulder [employer] [id number] 06/01/2024 [id number] / / [id number] Explanted Type Area Electrical Development Engineer Device Identifier Shelf Expiration Date Model / Serial / Lot [employer] 1624-109ns Rena 3/32in 9in 2 Trocar Pin Fixation Nonsterile - [id number] Explanted:Qty: 1 on 12/24/2019 by Chico Collins MD at [facility] Right: Shoulder [employer] [id number] S / / Insurance [place] CHO[place] Advance Directives For more information, please contact: [phone] * Full Code (Latest Code Status on File) Date Activated Date Inactivated Comments 12/24/2019 2:33 PM 12/25/2019 6:44 PM Care Teams Aircraft Log Clerk Relationship Specialty Start Date End Date Samm Govea MD [address] [place] [address] PCP - General 12/24/19
[2024-08-05] MEDS: VANCOMYCIN 1,500 MG/NS 500 ML 1,500 MG/500 ML BAG 250 MG IVPB ×2 (11:42→23:11)
[2024-08-05 13:19] LABS: Add Urine Microscopic? YES; Appearance Urine Clear (Clear); Bacteria Urine None Seen /hpf; Bilirubin Urine Negative (Negative); Blood Urine Negative (Negative); Color Urine Yellow (Yellow); Glucose Urine UA 3+ mg/dL (Negative); Ketones Urine 1+ mg/dL (Negative); Leukocyte Esterase Ur Negative LEU/UL (Negative); Need Manual Microscopic Reviewed; Nitrate Urine Negative (Negative); Protein Urine 2+ mg/dL (Negative); RBC Urine 0-2 /hpf (0-2); Specific Grav Ur > 1.045 (1.001-1.035); Squamous Epithelial Cell Urine None Seen /hpf (Few); Urobilinogen Urine 0.2 mg/dL (<2.0); WBC Urine 0-5 /hpf (0-3)
--- NOTE | 2024-08-05 17:35 | P.HP_ITS ---
H&P: HPI History of Present Illness Date/Time: 08/05/24 17:35 Chief Complaint: Left eye swelling and redness. Narrative: This is a 64-year-old male with history of cellulitis, hypertension, and type 2 diabetes mellitus who presented to the emergency department for evaluation of left eye swelling and redness. The patient provides the following history. He gives a 3 day history of pain, redness, and swelling along the left side of the nose and left eye. He was seen at urgent care and was referred to the ED to rule out orbital cellulitis however he declined and he was prescribed Augmentin which he has been taking however the pain, redness, and swelling seem to be getting worse. He denies fever, chills, sweats, pain with extraocular motions, acute visual changes, and history of MRSA. In the ED: He was afebrile on arrival. Labs are significant for WBC count of 9.1, sodium 134, chloride 97, glucose 354, lactic acid 1.3, CRP 22.7. CT of the face showed a 4 mm abscess at the junction of the nose and left cheek and chronic encephalomalacia in the right frontal lobe. ED provider spoke with both plastic surgery and ophthalmology specialists at [facility]. The patient is not exhibiting signs of orbital cellulitis and the plastic surgeon reported that the abscess was so small that it would not be amenable to drainage. Able recommended admission to the hospital for IV antibiotics. He received a dose of cefepime and vancomycin and he is being admitted in this setting for further antibiotics. Review of Systems Review of Systems: Twelve systems were reviewed. He is not taking any medication for his diabetes and he does not check his glucose. He knows when his sugars high as she gets neuropathy symptoms in his left foot. At baseline he has limited vision in his right eye due to diabetes. He has never had signs of symptoms of alcohol withdrawal when not drinking for periods of time. Except as documented, all the systems were reviewed and are negative. [facility] Past Medical History Medical History (Updated 08/05/24 @ 20:18 by Stephanie Matthews PA-C) Cellulitis Type 2 diabetes mellitus Hypertension Surgical History Surgical History (Updated 08/05/24 @ 20:13 by Stephanie Matthews PA-C) History of shoulder surgery Family History Family History (Updated 08/05/24 @ 20:13 by Stephanie Matthews PA-C) Other Family history non-contributory Social History Social History (Updated 08/05/24 @ 20:14 by Stephanie Matthews PA-C) Social History: Surrogate medical decision maker: Kate Shah ([phone]). Code status: Full code. Smoking status: Never smoker Alcohol intake: current Drinks per week: 21 Alcohol use details: on average 3 beers a night, sometimes less Meds Home Medications and Allergies Home Medications ?Medication ?Instructions ?Recorded ?Confirmed ?Type lisinopril 10 mg tablet 10 mg DIRECTED 07/13/22 05/18/23 History amoxicillin 875 mg-potassium 1 tablet PO Q12H 10 days #20 tabs 08/03/24 Rx clavulanate 125 mg tablet ibuprofen 800 mg tablet 800 mg PO TID PRN pain #15 tabs 08/03/24 Rx lidocaine HCl 2 % mucosal solution 1 applic mucous membrane TID PRN 08/03/24 Rx (Lidocaine Viscous) pain #100 mL meloxicam 15 mg tablet mg 08/03/24 History Allergies Allergy/AdvReac Type Severity Reaction Status Date / Time No Known Allergies Allergy Verified 08/03/24 15:48 Vital Signs Vital Signs - 24 hr 08/05/24 09:34 08/05/24 11:45 08/05/24 12:30 Temperature 97.9 F Pulse Rate 107 H 81 Respiratory Rate 20 15 Blood Pressure 143/96 H 128/85 149/93 H Pulse Oximetry 99 98 100 Oxygen Delivery Room Air 08/05/24 13:01 08/05/24 13:31 08/05/24 13:51 Temperature Pulse Rate 77 79 82 Respiratory Rate 14 16 Blood Pressure 149/91 H 152/101 H Pulse Oximetry 98 99 99 Oxygen Delivery 08/05/24 14:45 08/05/24 15:25 08/05/24 16:00 Temperature Pulse Rate 74 83 82 Respiratory Rate 15 18 17 Blood Pressure 127/84 Pulse Oximetry 98 99 100 Oxygen Delivery Exam Narrative: General: Mildly ill-appearing gentleman the semi-Huddleston position in bed. Weight: 79.4 kg. BMI: 25.8. HEENT: Erythema and swelling noted in the left periorbital region with swelling of the upper lid as well. The area is bit warm and slightly tender to touch. Extraocular motions are intact and he does not seem to have pain with that at the time my evaluation. Injected conjunctiva on the left with mild chemosis laterally. Some broken teeth noted. Neck: Supple. Respiratory: Lungs are clear to auscultation bilaterally. Cardiovascular: Regular rate and rhythm with S1-S2. Gastrointestinal: Abdomen is soft, nontender, and nondistended with positive bowel sounds. Skin: Warm and dry. No rash or lesions on limited exam. Extremities: No cyanosis, clubbing, or edema. Radial and pedal pulses intact. Neurological: Alert. Cranial nerves 2-12 are grossly intact. No gross focal deficits to casual conversation. Psychiatric: Cooperative with appropriate mood and affect. H&P: Results Labs Labs: Short CBC 08/05/24 Range/Units 10:29 WBC 9.1 (4.5-10.0) K/mm3 Hgb 14.9 (14.0-18.0) g/dL Hct 44.2 (42.0-52.0) % Plt Count 199 (150-375) k/mm3 BMP 08/05/24 10:29 Sodium 134 L Potassium 4.3 Chloride 97 L Carbon Dioxide 28 BUN 13 D Creatinine 0.52 L Glucose 354 H Calcium 9.1 Liver Function 08/05/24 Range/Units 10:29 Total Bilirubin 0.8 (0.2-1.3) mg/dL AST 20 (17-59) U/L ALT 20 (6-50) U/L Alkaline Phosphatase 122 (38-126) U/L Albumin 3.6 (3.5-5.1) g/dL Urine 08/05/24 Range/Units 12:40 Urine Color Yellow (Yellow) Urine Appearance Clear (Clear) Urine pH 6.0 (5.0-9.0) Ur Specific [place] > 1.045 H (1.001-1.035) Urine Protein 2+ H (Negative) mg/dL Urine Glucose (UA) 3+ H (Negative) mg/dL Impressions Face CT 08/05/24 11:21 IMPRESSION: 1. 4 mm abscess at the junction of the nose and left cheek. 2. Chronic encephalomalacia in right frontal lobe. Assessment and Plan Assessment and plan (1) Periorbital cellulitis of left eye: Code(s): L03.213 - Periorbital cellulitis Status: Acute (2) Facial abscess: Code(s): L02.01 - Cutaneous abscess of face Status: Acute (3) MRSA nasal colonization: Code(s): Z22.322 - Carrier or suspected carrier of Methicillin resistant Staphylococcus aureus Status: Acute (4) Type 2 diabetes mellitus with hyperglycemia: Code(s): E11.65 - Type 2 diabetes mellitus with hyperglycemia Status: Acute (5) Hypertension: Code(s): I10 - Essential (primary) hypertension Status: Acute Plan The patient presented to the emergency department with complaints of redness and swelling about the left eye for couple of days the site being on Augmentin as detailed in HPI. Labs, imaging, EKG, and all reports were personally reviewed. He has periorbital cellulitis with a very small, 4 mm abscess at the junction of the left nose and cheek. ED provider spoke with plastic surgery and ophthal mology at [facility] and they recommended admission for IV antibiotics as there is no evidence of orbital cellulitis and the abscess is so small that no intervention is recommended. There is no evidence of skin trauma and this may very well be related to sinuses and/or dental disease. Continue vancomycin as his nasal MRSA screen is positive and add ampicillin/sulbactam for broader coverage to include oral anaerobes. Mupirocin ointment b.i.d. to the nares. His diabetes is poorly controlled with a random glucose of 354. We discussed the importance of getting his sugar under control though he does not really seem to be motivated. Check hemoglobin A1c. Initiate sliding scale insulin, Accu-Cheks, and hypoglycemic protocol. hematology nurse educator consulted. Blood pressures have been running in the 130s to low 150 systolic and will be monitored. Findings and treatment plan were discussed with the patient. Questions were solicited and answered to satisfaction. The patient's medical management will be taken over by the hospitalist team in a.m. Quality VTE Prophylaxis VTE prophylaxis: pharmacologic ordered The patient has been admitted under observation status. Hospitalist MIPS Advance Care Plan I have confirmed that the patient's Advanced Care Plan is present, code status is documented, or surrogate decision maker is listed in patient medical record.: Yes Medication Reconciliation I have utilized all available resources to obtain, update and review the patients current medications (includes all prescriptions, OTC, herbals, cannabis, and nutritional supplements).: Yes
--- NOTE | 2024-08-05 17:43 | PC.NURSE ---
ordered pt meal tray at [phone]
[2024-08-05] MEDS: SODIUM CHLORIDE 0.9% IV 1,000 ML 125 ML IV CONT ×2 (17:47→22:24)
[2024-08-05 18:56] LABS: MRSA (PCR) DETECTED (NOT DETECTE)
--- NOTE | 2024-08-05 22:11 | ADMGEN ---
This patient, Leon Shah, was admitted to Medical Room 349-01. Patient/family oriented to hospital policies and general routines including ID bracelet, bed and alarms, visiting hours, pain management, procedures, bathroom and other care routines, personal items, smoking policy, room service/diet, and visiting hours. Information on how to activate the Rapid Response Team has been discussed. Patient/Family are encouraged to report perceived risks to care and to ask questions if they do not understand what they are told or what they should do.
[2024-08-05] MEDS: AMPICILLIN SULB 3 GM/NS 100 ML 3 GM/100 ML VIAL IVPB (22:24)
[2024-08-05] MEDS: MUPIROCIN 2% OINT 22 GM TUBE 1 APPLIC EACH NARE (22:28)
[2024-08-05] MEDS: INSULIN ASPART (*BKC) 100 UNITS/ML SUB-Q (22:34)
[2024-08-05] MEDS: KETOROLAC 30 MG/ML VIAL (*BKC) IV PUSH (22:39)
[2024-08-05 22:45] LABS: Glucose Point of Care 354 mg/dl (65-105)
[2024-08-06] MEDS: AMPICILLIN SULB 3 GM/NS 100 ML 3 GM/100 ML VIAL IVPB ×4 (03:20→20:19)
[2024-08-06] MEDS: KETOROLAC 30 MG/ML VIAL (*BKC) IV PUSH ×2 (05:48→12:14)
[2024-08-06 05:52] LABS: Hematocrit 38.5 % (42.0-52.0); Mean Corpuscular HGB Conc 33.8 g/dl (32-36); Mean Corpuscular Hemoglobin 31.7 pg (26-34); Mean Corpuscular Volume 93.9 fl (80-100); Platelet Count Result 191 k/mm3 (150-375); Red Cell Distribution Width 11.6 % (11.5-14.5); White Blood Count 5.6 K/mm3 (4.5-10.0)
[2024-08-06 06:00] VITALS: BP 138/80; PULSE 77; RESP 18; TEMP 36.1; O2SAT 96
[2024-08-06 06:09] LABS: Anion Gap 7 mmol/L (4-12); Blood Urea Nitrogen 9 mg/dL (9-20); Calcium 8.2 mg/dL (8.4-10.2); Carbon Dioxide 26 mmol/L (22-30); Chloride 103 mmol/L (98-107); Estimated CRCL calculation 141 ml/min; Estimated Glomerular Filt Rate > 60; Glucose 371 mg/dL (65-110); Potassium 4.1 mmol/L (3.4-5.0); Sodium 136 mmol/L (137-145)
[2024-08-06] MEDS: ENOXAPARIN 40 MG/0.4 ML SYRINGE SUB-Q (08:42)
[2024-08-06 08:43] LABS: Glucose Point of Care 309 mg/dl (65-105)
[2024-08-06] MEDS: MUPIROCIN 2% OINT 22 GM TUBE 1 APPLIC EACH NARE ×2 (08:45→20:22)
[2024-08-06] MEDS: INSULIN ASPART (*BKC) 100 UNITS/ML SUB-Q ×4 (08:50→20:27)
[2024-08-06 10:05] LABS: Magnesium 2.2 mg/dL (1.6-2.3)
[2024-08-06 11:04] LABS: Hemoglobin A1C 11.6 % (<5.7)
[2024-08-06 11:57] LABS: Glucose Point of Care 389 mg/dl (65-105)
--- NOTE | 2024-08-06 12:01 | PM.IMPN ---
Progress Note: A&P Assessment and Plan (1) Periorbital cellulitis of left eye: Code(s): L03.213 - Periorbital cellulitis Status: Acute Assessment and Plan: Ampicillin 3 gram IVPB q 6 and Vancomycin 1,500 mg IVPB q12. (2) Facial abscess: Code(s): L02.01 - Cutaneous abscess of face Status: Acute Assessment and Plan: Ampicillin 3 gram IVPB q 6 and Vancomycin 1,500 mg IVPB q12. MRSA nasal screen is positive, continue Vancomycin. 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 (5) Hypertension: Code(s): I10 - Essential (primary) hypertension Status: Acute Assessment and Plan: Blood pressure 128/74 Continue Lisinopril 10 mg PO daily. Plan The patient presented to the emergency department with complaints of redness and swelling about the left eye for couple of days the site being on Augmentin as detailed in HPI. Labs, imaging, EKG, and all reports were personally reviewed. He has periorbital cellulitis with a very small, 4 mm abscess at the junction of the left nose and cheek. ED provider spoke with plastic surgery and ophthalmology at [facility] and they recommended admission for IV antibiotics as there is no evidence of orbital cellulitis and the abscess is so small that no intervention is recommended. There is no evidence of skin trauma and this may very well be related to sinuses and/or dental disease. Continue vancomycin as his nasal MRSA screen is positive and add ampicillin/sulbactam for broader coverage to include oral anaerobes. Mupirocin ointment b.i.d. to the nares. His diabetes is poorly controlled with a random glucose of 354. We discussed the importance of getting his sugar under control though he does not really seem to be motivated. Subjective Date/time seen: 08/06/24 12:01 Interval history: Patient denies chest pain, palpitations, headache, dizziness, nausea, or vomiting. Patient reports that he has not been compliant with his medications duet to primary not ordering or affordability issues. Patient reports that he does not always keep appointments and primary does not do their part per patient. Review of Systems Review of Systems: All systems reviewed & are unremarkable except as noted in HPI and below Exam Const: General: comfortable and no acute distress Eyes: Other: Erythema and swelling noted in the left periorbital region with swelling of the upper lid as well. No drainage noted. Resp: Effort & Inspection: normal respiratory effort Auscultation: clear to auscultation bilaterally Cardio: Rate: regular rate Rhythm: regular rhythm GI: GI Palp: Yes Soft to palpation Auscultation: normal bowel sounds Extrem: Other: Toes with dryness, flaky with small dark spots. 1+PP. Psych: Mental Status: mental status grossly normal Affect: normal affect Objective Data Vital Signs Vital Signs: Vital Signs - 24 hr 08/05/24 12:30 08/05/24 13:01 08/05/24 13:31 Temperature Pulse Rate 81 77 79 Respiratory Rate 15 14 Blood Pressure 149/93 H 149/91 H 152/101 H Pulse Oximetry 100 98 99 Oxygen Delivery 08/05/24 13:51 08/05/24 14:45 08/05/24 15:25 Temperature Pulse Rate 82 74 83 Respiratory Rate 16 15 18 Blood Pressure 127/84 Pulse Oximetry 99 98 99 Oxygen Delivery 08/05/24 16:00 08/05/24 16:34 08/05/24 17:45 Temperature Pulse Rate 82 80 Respiratory Rate 17 17 14 Blood Pressure Pulse Oximetry 100 100 99 Oxygen Delivery 08/05/24 18:01 08/05/24 18:41 08/05/24 19:32 Temperature Pulse Rate 86 98 91 Respiratory Rate 16 21 H 17 Blood Pressure 141/89 H Pulse Oximetry 99 97 97 Oxygen Delivery 08/05/24 20:04 08/05/24 20:31 08/05/24 22:15 Temperature Pulse Rate Respiratory Rate 16 18 Blood Pressure 148/93 H Pulse Oximetry 98 97 Oxygen Delivery Room Air 08/05/24 22:35 08/06/24 06:00 08/06/24 08:00 Temperature 98.0 F 97.0 F L Pulse Rate 96 77 Respiratory Rate 20 18 Blood Pressure 136/83 138/80 Pulse Oximetry 98 96 Oxygen Delivery Room Air Intake/Output Intake/Output: Intake & Output 08/03/24 08/04/24 08/05/24 08/06/24 23:59 23:59 23:59 23:59 Intake Total 2650 1460 Output Total 800 Balance 2650 660 Meds/Results Medications: Active Medications Generic Name Dose Route Start Last Admin Trade Name Freq PRN Reason Stop Dose Admin Acetaminophen 650 mg 08/05/24 17:19 Acetaminophen 325 Mg Tablet PO Q4H PRN Mild Pain (1-3) or Fever Hydrocodone Bitart/Acetaminophen 1 tab 08/05/24 20:14 Hydrocodone/Acetaminophen (*Crx) 5-325 Mg Tablet PO Q6H PRN Pain Rated 4-6 Ascorbic Acid 500 mg 08/07/24 09:00 Ascorbic Acid 500 Mg Tablet PO DAILY MOE Dextrose 12.5 gm 08/05/24 20:31 Dextrose 50% 25 Gm/50 Ml Syringe IV PUSH PRN PRN Hypoglycemia Protocol Enoxaparin Sodium 40 mg 08/06/24 09:00 08/06/24 08:42 Enoxaparin 40 Mg/0.4 Ml Syringe SUB-Q 40 mg DAILY MOE Administration Glucagon 1 mg 08/05/24 20:31 Glucagon For Inj 1 Mg Vial IM PRN PRN Hypoglycemia Protocol Glucose 15 gm 08/05/24 20:31 Glucose Oral Gel 15 Gm Of Glucse In 37.5 Gm Tube PO PRN PRN Hypoglycemia Protocol Vancomycin HCl 1,500 mg in 500 mls @ 250 mls/hr 08/05/24 23:00 08/06/24 01:11 Vancomycin 1,500 Mg/Ns 500 Ml IVPB Infused Q12H MOE Infusion Dextrose 1,000 mls @ 100 mls/hr 08/05/24 20:31 Dextrose 5% 1,000 Ml IVPB PRN PRN Hypoglycemia Protocol Ampicillin Sodium/Sulbactam Sodium 3 gm in 100 mls @ 200 mls/hr 08/05/24 21:00 08/06/24 08:46 Unasyn 3 Gm/Ns 100 Ml IVPB 200 mls/hr Q6H MOE Administration Insulin Aspart 3 - 6 units 08/06/24 08:00 08/06/24 08:50 Insulin Aspart (*Bkc) 100 Units/Ml SUB-Q 5 units TIDWM MOE Administration Protocol Insulin Aspart 1 - 3 units 08/05/24 21:00 08/05/24 22:34 Insulin Aspart (*Bkc) 100 Units/Ml SUB-Q 3 units HS MOE Administration Protocol Ketorolac Tromethamine 30 mg 08/05/24 17:19 08/06/24 05:48 Ketorolac 30 Mg/Ml Vial (*Bkc) IV PUSH 08/10/24 17:18 30 mg Q6H PRN Administration Pain Rated 4-6 Lisinopril 10 mg 08/07/24 09:00 Lisinopril 10 Mg Tablet PO DAILY [facility] Morphine Sulfate 2 mg 08/05/24 20:14 Morphine Sulfate (*Crx) 2 Mg/Ml Inj IV PUSH Q4H PRN Pain Rated 7-10 Mupirocin 1 applic 08/05/24 21:00 08/06/24 08:45 Mupirocin 2% Oint 22 Gm Tube EACH NARE 1 applic Q12HR MOE Administration Ondansetron HCl 4 mg 08/05/24 17:19 Ondansetron Inj 4 Mg/2 Ml Vial IV PUSH Q4H PRN Nausea Radiology Results: ITS Impressions Face CT 08/05/24 11:21 IMPRESSION: 1. 4 mm abscess at the junction of the nose and left cheek. 2. Chronic encephalomalacia in right frontal lobe. Labs Labs: Laboratory Results - last 24 hr 08/05/24 08/05/24 08/05/24 12:40 17:37 22:26 WBC RBC Hgb Hct MCV MCH MCHC RDW Plt Count MPV Sodium Potassium Chloride Carbon Dioxide Anion Gap BUN Creatinine Estim Creat Clear Calc Estimated GFR Glucose POC Capillary Glucose 354 H Hemoglobin A1c Calcium Magnesium Urine Color Yellow Urine Appearance Clear Urine pH 6.0 Ur Specific [place] > 1.045 H Urine Protein 2+ H Urine Glucose (UA) 3+ H Urine Ketones 1+ H Ur Blood (Man) Negative Urine Nitrate Negative Urine Bilirubin Negative Urine Urobilinogen 0.2 Add Ur Microanalysis Reviewed Leukocyte Esterase Rfl Negative Urine RBC 0-2 Urine WBC 0-5 Ur Squamous Epith Cells None seen Urine Bacteria None seen Urine Casts 3-5 Nasal MRSA (PCR) Detected A* 08/06/24 08/06/24 08/06/24 05:34 05:36 08:40 WBC 5.6 RBC 4.10 L Hgb 13.0 L Hct 38.5 L MCV 93.9 MCH 31.7 MCHC 33.8 RDW 11.6 Plt Count 191 MPV 10.0 Sodium 136 L Potassium 4.1 Chloride 103 Carbon Dioxide 26 Anion Gap 7 BUN 9 Creatinine 0.42 L Estim Creat Clear Calc 141 Estimated GFR > 60 Glucose 371 H POC Capillary Glucose 309 H Hemoglobin A1c 11.6 H Calcium 8.2 L Magnesium 2.2 Urine Color Urine Appearance Urine pH Ur Specific [place] Urine Protein Urine Glucose (UA) Urine Ketones Ur Blood (Man) Urine Nitrate Urine Bilirubin Urine Urobilinogen Add Ur Microanalysis Leukocyte Esterase Rfl Urine RBC Urine WBC Ur Squamous Epith Cells Urine Bacteria Urine Casts Nasal MRSA (PCR) 08/06/24 11:54 WBC RBC Hgb Hct MCV MCH MCHC RDW Plt Count MPV Sodium Potassium Chloride Carbon Dioxide Anion Gap BUN Creatinine Estim Creat Clear Calc Estimated GFR Glucose POC Capillary Glucose 389 H Hemoglobin A1c Calcium Magnesium Urine Color Urine Appearance Urine pH Ur Specific [place] Urine Protein Urine Glucose (UA) Urine Ketones Ur Blood (Man) Urine Nitrate Urine Bilirubin Urine Urobilinogen Add Ur Microanalysis Leukocyte Esterase Rfl Urine RBC Urine WBC Ur Squamous Epith Cells Urine Bacteria Urine Casts Nasal MRSA (PCR) Quality VTE Prophylaxis VTE prophylaxis: pharmacologic ordered
[2024-08-06] MEDS: VANCOMYCIN 1,500 MG/NS 500 ML 1,500 MG/500 ML BAG 250 MG IVPB (12:07)
[2024-08-06 14:00] VITALS: BP 128/74; PULSE 81; RESP 18; TEMP 36.8; O2SAT 97
[2024-08-06 15:45] VITALS: BMI 28.6
[2024-08-06 16:54] LABS: Glucose Point of Care 334 mg/dl (65-105)
[2024-08-06] MEDS: ACETAMINOPHEN 325 MG TABLET 650 MG PO (17:09)
[2024-08-06] MEDS: INSULIN GLARGINE (*BKC) 100 UNITS/ML 17 UNITS SUB-Q (20:27)
[2024-08-06 20:35] LABS: Glucose Point of Care 334 mg/dl (65-105)
[2024-08-06 22:08] VITALS: BP 160/80; PULSE 80; RESP 20; TEMP 36.2; O2SAT 98
[2024-08-06 22:53] LABS: Vancomycin Trough 8.4 ug/mL (10.0-20.0)
[2024-08-06] MEDS: VANCOMYCIN 1,250 MG/NS 250 ML 1,250 MG/250 ML BAG 166.67 MG IVPB (23:29)
[2024-08-07] MEDS: AMPICILLIN SULB 3 GM/NS 100 ML 3 GM/100 ML VIAL IVPB ×4 (02:30→20:17)
[2024-08-07 06:00] VITALS: BP 153/82; PULSE 74; RESP 20; TEMP 36.3; O2SAT 100
[2024-08-07 06:37] LABS: Basophils Percent Auto 0.8 % (0.2-1.2); Eosinophils Absolute Auto 0.2 K/mm3 (0-0.3); Eosinophils Percent Auto 3.3 % (0-4.4); Hematocrit 40.8 % (42.0-52.0); Hemoglobin 13.6 g/dL (14.0-18.0); Immature Granulocyte Absolute 0.06 K/mm3 (0.00-0.031); Immature Granulocyte Percent A 1.2 % (0-0.5); Lymphocytes Absolute Auto 1.14 K/mm3 (0.9-3.2); Lymphocytes Percent Auto 23.2 % (18.3-44.2); Mean Corpuscular HGB Conc 33.3 g/dl (32-36); Mean Corpuscular Hemoglobin 31.2 pg (26-34); Mean Corpuscular Volume 93.6 fl (80-100); Mean Platelet Volume 9.5 fl (7.4-10.4); Monocytes Absolute Auto 0.4 K/mm3 (0.1-0.6); Monocytes Percent Auto 7.7 % (2.6-8.5); Neutrophils Absolute Auto 3.1 K/mm3 (1.3-6.7); Neutrophils Percent Auto 63.8 % (45.5-73.1); Platelet Count Result 237 k/mm3 (150-375); Red Blood Count 4.36 M/mm3 (4.6-6.20); Red Cell Distribution Width 11.6 % (11.5-14.5); White Blood Count 4.9 K/mm3 (4.5-10.0)
[2024-08-07 06:45] LABS: Alanine Aminotransferase 28 U/L (6-50); Albumin Level 3.4 g/dL (3.5-5.1); Alkaline Phosphatase 101 U/L (38-126); Anion Gap 5 mmol/L (4-12); Aspartate Amino Transferase 31 U/L (17-59); Bilirubin,Total 0.4 mg/dL (0.2-1.3); Blood Urea Nitrogen 10 mg/dL (9-20); Calcium 8.9 mg/dL (8.4-10.2); Carbon Dioxide 36 mmol/L (22-30); Chloride 100 mmol/L (98-107); Estimated CRCL calculation 86 ml/min; Estimated Glomerular Filt Rate > 60; Glucose 246 mg/dL (65-110); Potassium 4.1 mmol/L (3.4-5.0); Sodium 141 mmol/L (137-145)
[2024-08-07] MEDS: ENOXAPARIN 40 MG/0.4 ML SYRINGE SUB-Q (08:07)
[2024-08-07] MEDS: VANCOMYCIN 1,250 MG/NS 250 ML 1,250 MG/250 ML BAG 166.67 MG IVPB ×2 (08:07→15:33)
[2024-08-07] MEDS: ASCORBIC ACID 500 MG TABLET PO (08:08)
[2024-08-07] MEDS: lisinopriL 10 MG TABLET PO (08:08)
[2024-08-07] MEDS: MUPIROCIN 2% OINT 22 GM TUBE 1 APPLIC EACH NARE ×2 (08:08→20:10)
[2024-08-07 08:30] LABS: Glucose Point of Care 252 mg/dl (65-105)
[2024-08-07] MEDS: INSULIN ASPART (*BKC) 100 UNITS/ML SUB-Q ×4 (08:50→20:15)
[2024-08-07] MEDS: KETOROLAC 30 MG/ML VIAL (*BKC) IV PUSH (08:52)
--- NOTE | 2024-08-07 11:32 | PM.IMPN ---
Progress Note: A&P Assessment and Plan (1) Periorbital cellulitis of left eye: Code(s): L03.213 - Periorbital cellulitis Status: Acute Assessment and Plan: Ampicillin 3 gram IVPB q 6 and Vancomycin 1,500 mg IVPB q12. 08/07/24: Continue IV abx Await blood culture results. Trend labs and VS. (2) Facial abscess: Code(s): L02.01 - Cutaneous abscess of face Status: Acute Assessment and Plan: Ampicillin 3 gram IVPB q 6 and Vancomycin 1,500 mg IVPB q12. MRSA nasal screen is positive, continue Vancomycin. 08/07/24; Continue all treatment as in #1 (3) MRSA nasal colonization: Code(s): Z22.322 - Carrier or suspected carrier of Methicillin resistant Staphylococcus aureus Status: Acute Assessment and Plan: MRSA nasal screen is positive, continue Vancomycin. 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 08/07/24: Increase Lantus to 20 units HS from 17 for fasting glucose of 246. (5) Hypertension: Code(s): I10 - Essential (primary) hypertension Status: Chronic Assessment and Plan: Blood pressure 128/74 Continue Lisinopril 10 mg PO daily. Time Spent With Patient Time with patient: 25 - 35 minutes Subjective Date/time seen: 08/07/24 11:00 Interval history: This pt was examined at the bedside. He continues to have some pain around the left eye with redness, swelling and a hard red knot. No fevers overnight. BC pending x2 w/NGTD. Pt states he is a diabetic and he got the infection from attempting to pull his own tooth. Review of Systems Review of Systems: All systems reviewed & are unremarkable except as noted in HPI and below Exam Narrative: General: Pt laying supine at this time in no acute distress. HEENT: Erythema and swelling noted in the left periorbital region with swelling of the upper lid as well. The area is bit warm and slightly tender to touch. Extraocular motions are intact. Some broken teeth noted. Neck: Supple, FROM Respiratory: Lungs are clear to auscultation bilaterally. Cardiovascular: Regular rate and rhythm with S1-S2. Gastrointestinal: Abdomen is soft, nontender, and nondistended with positive bowel sounds. Skin: Warm and dry. No rash or lesions on limited exam. Extremities: No cyanosis, clubbing, or edema. Radial and pedal pulses intact. Neurological: Alert. Cranial nerves 2-12 are grossly intact. No gross focal deficits to casual conversation. Psychiatric: Cooperative with appropriate mood and affect. Objective Data Vital Signs Vital Signs: Vital Signs - 24 hr 08/06/24 14:00 08/06/24 20:00 08/06/24 22:08 Temperature 98.2 F 97.1 F L Pulse Rate 81 80 Respiratory Rate 18 20 Blood Pressure 128/74 160/80 H Pulse Oximetry 97 98 Oxygen Delivery Room Air 08/07/24 06:00 Temperature 97.4 F L Pulse Rate 74 Respiratory Rate 20 Blood Pressure 153/82 H Pulse Oximetry 100 Oxygen Delivery Intake/Output Intake/Output: Intake & Output 08/04/24 08/05/24 08/06/24 08/07/24 23:59 23:59 23:59 23:59 Intake Total 2650 2884 1140 Output Total 800 Balance 2650 2084 1140 Meds/Results Medications: Active Medications Generic Name Dose Route Start Last Admin Trade Name Freq PRN Reason Stop Dose Admin Acetaminophen 650 mg 08/05/24 17:19 08/06/24 17:09 Acetaminophen 325 Mg Tablet PO 650 mg Q4H PRN Administration Mild Pain (1-3) or Fever Hydrocodone Bitart/Acetaminophen 1 tab 08/05/24 20:14 Hydrocodone/Acetaminophen (*Crx) 5-325 Mg Tablet PO Q6H PRN Pain Rated 4-10 Ascorbic Acid 500 mg 08/07/24 09:00 08/07/24 08:08 Ascorbic Acid 500 Mg Tablet PO 500 mg DAILY MOE Administration Dextrose 12.5 gm 08/05/24 20:31 Dextrose 50% 25 Gm/50 Ml Syringe IV PUSH PRN PRN Hypoglycemia Protocol Enoxaparin Sodium 40 mg 08/06/24 09:00 08/07/24 08:07 Enoxaparin 40 Mg/0.4 Ml Syringe SUB-Q 40 mg DAILY MOE Administration Glucagon 1 mg 08/05/24 20:31 Glucagon For Inj 1 Mg Vial IM PRN PRN Hypoglycemia Protocol Glucose 15 gm 08/05/24 20:31 Glucose Oral Gel 15 Gm Of Glucse In 37.5 Gm Tube PO PRN PRN Hypoglycemia Protocol Dextrose 1,000 mls @ 100 mls/hr 08/05/24 20:31 Dextrose 5% 1,000 Ml IVPB PRN PRN Hypoglycemia Protocol Ampicillin Sodium/Sulbactam Sodium 3 gm in 100 mls @ 200 mls/hr 08/05/24 21:00 08/07/24 09:53 Unasyn 3 Gm/Ns 100 Ml IVPB 200 mls/hr Q6H MOE Administration Vancomycin HCl 1,250 mg in 250 mls @ 166.667 mls/hr 08/07/24 00:00 08/07/24 08:07 Vancomycin 1,250 Mg/Ns 250 Ml IVPB 166.67 mls/hr Q8H MOE Administration Insulin Aspart 3 - 6 units 08/06/24 08:00 08/07/24 08:50 Insulin Aspart (*Bkc) 100 Units/Ml SUB-Q 4 units TIDWM [facility] Administration Protocol Insulin Aspart 1 - 3 units 08/05/24 21:00 08/06/24 20:27 Insulin Aspart (*Bkc) 100 Units/Ml SUB-Q 2 units HS [facility] Administration Protocol Insulin Glargine 17 units 08/06/24 21:00 08/06/24 20:27 Insulin Glargine (*Bkc) 100 Units/Ml 0.2 units/kg (17 units) 17 units SUB-Q Administration [facility] Ketorolac Tromethamine 30 mg 08/05/24 17:19 08/07/24 08:52 Ketorolac 30 Mg/Ml Vial (*Bkc) IV PUSH 08/10/24 17:18 30 mg Q6H PRN Administration Pain 4-10 Lisinopril 10 mg 08/07/24 09:00 08/07/24 08:08 Lisinopril 10 Mg Tablet PO 10 mg DAILY MOE Administration Mupirocin 1 applic 08/05/24 21:00 08/07/24 08:08 Mupirocin 2% Oint 22 Gm Tube EACH NARE 1 applic Q12HR MOE Administration Ondansetron HCl 4 mg 08/05/24 17:19 Ondansetron Inj 4 Mg/2 Ml Vial IV PUSH Q4H PRN Nausea Radiology Results: ITS Impressions Face CT 08/05/24 11:21 IMPRESSION: 1. 4 mm abscess at the junction of the nose and left cheek. 2. Chronic encephalomalacia in right frontal lobe. Labs Labs: Laboratory Results - last 24 hr 08/06/24 08/06/24 08/06/24 11:54 16:52 20:25 WBC RBC Hgb Hct MCV MCH MCHC RDW Plt Count MPV Immature Gran % (Auto) Neut % (Auto) Lymph % (Auto) [place] % (Auto) Eos % (Auto) Baso % (Auto) Lymph # (Auto) [place] # (Auto) Eos # (Auto) Baso # (Auto) Abs Immat Gran (auto) Absolute Neuts (auto) Absolute Nucleated RBC Nucleated RBC % Sodium Potassium Chloride Carbon Dioxide Anion Gap BUN Creatinine Estim Creat Clear Calc Estimated GFR Glucose POC Capillary Glucose 389 H 334 H 334 H Calcium Total Bilirubin AST ALT Alkaline Phosphatase Total Protein Albumin Vancomycin Trough 08/06/24 08/07/24 08/07/24 21:56 06:24 08:25 WBC 4.9 RBC 4.36 L Hgb 13.6 L Hct 40.8 L MCV 93.6 MCH 31.2 MCHC 33.3 RDW 11.6 Plt Count 237 MPV 9.5 Immature Gran % (Auto) 1.2 H Neut % (Auto) 63.8 Lymph % (Auto) 23.2 [place]ink[place] % (Auto) 7.7 Eos % (Auto) 3.3 Baso % (Auto) 0.8 Lymph # (Auto) 1.14 [place]ink[place] # (Auto) 0.4 Eos # (Auto) 0.2 Baso # (Auto) 0.0 Abs Immat Gran (auto) 0.06 H Absolute Neuts (auto) 3.1 Absolute Nucleated RBC 0.000 Nucleated RBC % 0.0 Sodium 141 Potassium 4.1 Chloride 100 Carbon Dioxide 36 H Anion Gap 5 BUN 10 Creatinine 0.73 Estim Creat Clear Calc 86 Estimated GFR > 60 Glucose 246 H POC Capillary Glucose 252 H Calcium 8.9 Total Bilirubin 0.4 AST 31 ALT 28 Alkaline Phosphatase 101 Total Protein 7.0 Albumin 3.4 L Vancomycin Trough 8.4 L Quality VTE Prophylaxis VTE prophylaxis: pharmacologic ordered
[2024-08-07 12:19] LABS: Glucose Point of Care 225 mg/dl (65-105)
[2024-08-07 14:00] VITALS: BP 146/79; PULSE 79; RESP 19; TEMP 36.8; O2SAT 100; BMI 28.5
[2024-08-07 16:46] LABS: Glucose Point of Care 334 mg/dl (65-105)
[2024-08-07] MEDS: ACETAMINOPHEN 325 MG TABLET 650 MG PO (17:03)
--- NOTE | 2024-08-07 17:41 | PC.NURSE ---
On 08/07/24, the student, Tiffanie Piña, provided care and completed [facility] documentation on this patient. I have reviewed the student's documentation and agree with the findings.
[2024-08-07] MEDS: INSULIN GLARGINE (*BKC) 100 UNITS/ML 20 UNITS SUB-Q (20:14)
[2024-08-07 20:24] LABS: Glucose Point of Care 262 mg/dl (65-105)
[2024-08-07 21:02] VITALS: BP 147/88; PULSE 79; RESP 18; TEMP 36.9; O2SAT 99
[2024-08-07 23:25] LABS: Vancomycin Trough 12.8 ug/mL (10.0-20.0)
[2024-08-08] MEDS: VANCOMYCIN 1,250 MG/NS 250 ML 1,250 MG/250 ML BAG 166.67 MG IVPB (00:13)
[2024-08-08] MEDS: AMPICILLIN SULB 3 GM/NS 100 ML 3 GM/100 ML VIAL IVPB ×2 (02:11→09:36)
[2024-08-08 06:00] VITALS: BP 153/81; PULSE 75; RESP 18; TEMP 36.4; O2SAT 99
[2024-08-08 06:32] LABS: Basophils Percent Auto 0.9 % (0.2-1.2); Eosinophils Absolute Auto 0.1 K/mm3 (0-0.3); Eosinophils Percent Auto 2.8 % (0-4.4); Hematocrit 40.2 % (42.0-52.0); Hemoglobin 13.5 g/dL (14.0-18.0); Immature Granulocyte Absolute 0.07 K/mm3 (0.00-0.031); Immature Granulocyte Percent A 1.5 % (0-0.5); Lymphocytes Absolute Auto 1.14 K/mm3 (0.9-3.2); Lymphocytes Percent Auto 24.4 % (18.3-44.2); Mean Corpuscular HGB Conc 33.6 g/dl (32-36); Mean Corpuscular Hemoglobin 31.3 pg (26-34); Mean Corpuscular Volume 93.1 fl (80-100); Mean Platelet Volume 9.4 fl (7.4-10.4); Monocytes Absolute Auto 0.4 K/mm3 (0.1-0.6); Monocytes Percent Auto 9.4 % (2.6-8.5); Neutrophils Absolute Auto 2.9 K/mm3 (1.3-6.7); Platelet Count Result 242 k/mm3 (150-375); Red Blood Count 4.32 M/mm3 (4.6-6.20); Red Cell Distribution Width 11.6 % (11.5-14.5); White Blood Count 4.7 K/mm3 (4.5-10.0)
[2024-08-08 06:38] LABS: Alanine Aminotransferase 34 U/L (6-50); Albumin Level 3.3 g/dL (3.5-5.1); Alkaline Phosphatase 100 U/L (38-126); Anion Gap 5 mmol/L (4-12); Aspartate Amino Transferase 34 U/L (17-59); Bilirubin,Total 0.3 mg/dL (0.2-1.3); Blood Urea Nitrogen 12 mg/dL (9-20); Calcium 8.8 mg/dL (8.4-10.2); Carbon Dioxide 32 mmol/L (22-30); Chloride 101 mmol/L (98-107); Estimated CRCL calculation 101 ml/min; Estimated Glomerular Filt Rate > 60; Glucose 326 mg/dL (65-110); Potassium 3.9 mmol/L (3.4-5.0); Sodium 138 mmol/L (137-145)
[2024-08-08] MEDS: ASCORBIC ACID 500 MG TABLET PO (08:00)
[2024-08-08] MEDS: lisinopriL 10 MG TABLET PO (08:00)
[2024-08-08] MEDS: VANCOMYCIN 1,250 MG/NS 250 ML 1,250 MG/250 ML BAG 166 MG IVPB (08:00)
[2024-08-08] MEDS: ENOXAPARIN 40 MG/0.4 ML SYRINGE SUB-Q (08:00)
[2024-08-08] MEDS: MUPIROCIN 2% OINT 22 GM TUBE 1 APPLIC EACH NARE ×2 (08:01→20:16)
[2024-08-08 08:28] LABS: Glucose Point of Care 287 mg/dl (65-105)
[2024-08-08] MEDS: INSULIN ASPART (*BKC) 100 UNITS/ML SUB-Q ×4 (09:35→20:41)
[2024-08-08 12:11] LABS: Glucose Point of Care 307 mg/dl (65-105)
[2024-08-08] MEDS: LINEZOLID 600 MG TABLET PO ×2 (12:29→20:16)
[2024-08-08] MEDS: AMOXICILLIN/CLAVULANATE K 875-125 MG TAB 1 TABLET PO ×2 (12:30→20:16)
[2024-08-08 14:00] VITALS: BP 132/82; PULSE 75; RESP 18; TEMP 36.1; O2SAT 99
--- NOTE | 2024-08-08 14:00 | P.PNIM_ITS ---
Progress Note: A&P Assessment and Plan (1) Periorbital cellulitis of left eye: Code(s): L03.213 - Periorbital cellulitis Status: Acute Assessment and Plan: * Ampicillin 3 gram IVPB q 6 and Vancomycin 1,500 mg IVPB q12. 08/07/24: * Continue IV abx * Await blood culture results. * Trend labs and VS. 08/08/24: * De-escalate IV abx to po Linezolid and Augmentin. * Blood cultures are still pending. * Continue to trend labs and VS. (2) Facial abscess: Code(s): L02.01 - Cutaneous abscess of face Status: Acute Assessment and Plan: * Ampicillin 3 gram IVPB q 6 and Vancomycin 1,500 mg IVPB q12. * MRSA nasal screen is positive, continue Vancomycin. 08/07/24; * Continue all treatment as in #1 08/08/24: * De-escalate IV abx to po Linezolid and Augmentin. * Blood cultures are still pending. * Continue to trend labs and VS. (3) MRSA nasal colonization: Code(s): Z22.322 - Carrier or suspected carrier of Methicillin resistant Staphylococcus aureus Status: Acute Assessment and Plan: * MRSA nasal screen is positive, continue Vancomycin. 08/08/24: * Transition today to oral Linezolid. 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 08/07/24: * Increase Lantus to 20 units HS from 17 for fasting glucose of 246. 08/08/24: * Increase Lantus to 25 units and change SSI to high dose with meals and at HS. * Fasting glucose this AM 326. * A1C was 11.6. (5) Hypertension: Code(s): I10 - Essential (primary) hypertension Status: Chronic Assessment and Plan: * Blood pressure 128/74 * Continue Lisinopril 10 mg PO daily. 08/08/24: * BP's have been waxing and waning ranging 120s-160/70s-90s. * Increase Lisinopril to 20 mg po daily. * Continue to monitor BP trends. Time Spent With Patient Time with patient: 15 - 25 minutes Subjective Date/time seen: 08/08/24 1130 Interval history: Pt was examined at the bedside today. He has improvement in his overall condition with decreased redness and swelling of the face around the left eye. He reports pain is the same. Pt makes statement to me that he is Here under cover and he is writing in a journal about his care here. It is difficult to tell if pt is joking or telling the truth. With concern for his infection being where it is, will closely watch pt for any further statements that do not make sense and consider LP. As he has normal VS and labs at this point, we will de- escalate abx to oral Linezolid and Augmentin from the Vancomycin and Unasyn. No other acute complaints or symptoms to report today. Review of Systems Review of Systems: All systems reviewed & are unremarkable except as noted in HPI and below Exam Narrative: General: Pt laying supine at this time in no acute distress. HEENT: Erythema and swelling noted in the left periorbital region with tenderness to palpation, but overall improvement. Extraocular motions are intact. Some broken teeth and poor dentition overall is noted. Neck: Supple, FROM Respiratory: Lungs are clear to auscultation bilaterally. Cardiovascular: Regular rate and rhythm with S1-S2. Gastrointestinal: Abdomen is soft, nontender, and nondistended with positive bowel sounds. Skin: Warm and dry. No rash or lesions on limited exam. Extremities: No cyanosis, clubbing, or edema. Radial and pedal pulses intact. Neurological: Alert. Cranial nerves 2-12 are grossly intact. No gross focal deficits to casual conversation. Psychiatric: Cooperative with appropriate mood and affect. Objective Data Vital Signs Vital Signs: Vital Signs - 24 hr 08/07/24 20:00 08/07/24 21:02 08/08/24 06:00 Temperature 98.4 F 97.6 F Pulse Rate 79 75 Respiratory Rate 18 18 Blood Pressure 147/88 H 153/81 H Pulse Oximetry 99 99 Oxygen Delivery Room Air 08/08/24 08:05 Temperature Pulse Rate Respiratory Rate Blood Pressure Pulse Oximetry Oxygen Delivery Room Air Intake/Output Intake/Output: Intake & Output 08/05/24 08/06/24 08/07/24 08/08/24 23:59 23:59 23:59 23:59 Intake Total 2650 2884 3064 1060 Output Total 800 Balance 2650 2084 3064 1060 Meds/Results Medications: Active Medications Generic Name Dose Route Start Last Admin Trade Name Freq PRN Reason Stop Dose Admin Acetaminophen 650 mg 08/05/24 17:19 08/07/24 17:03 Acetaminophen 325 Mg Tablet PO 650 mg Q4H PRN Administration Mild Pain (1-3) or Fever Hydrocodone Bitart/Acetaminophen 1 tab 08/05/24 20:14 Hydrocodone/Acetaminophen (*Crx) 5-325 Mg Tablet PO Q6H PRN Pain Rated 4-10 Amoxicillin/Clavulanate Potassium 1 tablet 08/08/24 12:00 08/08/24 12:30 Amoxicillin/Clavulanate K 875-125 Mg Tab PO 08/11/24 21:01 1 tablet Q12HR MOE Administration Ascorbic Acid 500 mg 08/07/24 09:00 08/08/24 08:00 Ascorbic Acid 500 Mg Tablet PO 500 mg DAILY MOE Administration Dextrose 12.5 gm 08/08/24 07:54 Dextrose 50% 25 Gm/50 Ml Syringe IV PUSH PRN PRN Hypoglycemia Protocol Enoxaparin Sodium 40 mg 08/06/24 09:00 08/08/24 08:00 Enoxaparin 40 Mg/0.4 Ml Syringe SUB-Q 40 mg DAILY MOE Administration Glucagon 1 mg 08/08/24 07:54 Glucagon For Inj 1 Mg Vial IM PRN PRN Hypoglycemia Protocol Glucose 15 gm 08/08/24 07:54 Glucose Oral Gel 15 Gm Of Glucse In 37.5 Gm Tube PO PRN PRN Hypoglycemia Protocol Dextrose 1,000 mls @ 100 mls/hr 08/08/24 07:54 Dextrose 5% 1,000 Ml IVPB PRN PRN Hypoglycemia Protocol Insulin Aspart 4 - 8 units 08/08/24 08:00 08/08/24 12:30 Insulin Aspart (*Bkc) 100 Units/Ml SUB-Q 6 units TIDWM MOE Administration Protocol Insulin Aspart 2 - 4 units 08/08/24 21:00 Insulin Aspart (*Bkc) 100 Units/Ml SUB-Q HS MOE Protocol Insulin Glargine 25 units 08/08/24 21:00 Insulin Glargine (*Bkc) 100 Units/Ml SUB-Q HS MOE Ketorolac Tromethamine 30 mg 08/05/24 17:19 08/07/24 08:52 Ketorolac 30 Mg/Ml Vial (*Bkc) IV PUSH 08/10/24 17:18 30 mg Q6H PRN Administration Pain 4-10 Linezolid 600 mg 08/08/24 12:00 08/08/24 12:29 Linezolid 600 Mg Tablet PO 08/11/24 21:01 600 mg Q12HR MOE Administration Lisinopril 10 mg 08/07/24 09:00 08/08/24 08:00 Lisinopril 10 Mg Tablet PO 10 mg DAILY MOE Administration Mupirocin 1 applic 08/05/24 21:00 08/08/24 08:01 Mupirocin 2% Oint 22 Gm Tube EACH NARE 1 applic Q12HR MOE Administration Ondansetron HCl 4 mg 08/05/24 17:19 Ondansetron Inj 4 Mg/2 Ml Vial IV PUSH Q4H PRN Nausea Radiology Results: ITS Impressions Face CT 08/05/24 11:21 IMPRESSION: 1. 4 mm abscess at the junction of the nose and left cheek. 2. Chronic encephalomalacia in right frontal lobe. Labs Labs: Laboratory Results - last 24 hr 08/07/24 08/07/24 08/07/24 16:43 20:13 22:57 WBC RBC Hgb Hct MCV MCH MCHC RDW Plt Count MPV Immature Gran % (Auto) Neut % (Auto) Lymph % (Auto) [place] % (Auto) Eos % (Auto) Baso % (Auto) Lymph # (Auto) [place] # (Auto) Eos # (Auto) Baso # (Auto) Abs Immat Gran (auto) Absolute Neuts (auto) Absolute Nucleated RBC Nucleated RBC % Sodium Potassium Chloride Carbon Dioxide Anion Gap BUN Creatinine Estim Creat Clear Calc Estimated GFR Glucose POC Capillary Glucose 334 H 262 H Calcium Total Bilirubin AST ALT Alkaline Phosphatase Total Protein Albumin Vancomycin Trough 12.8 08/08/24 08/08/24 08/08/24 06:14 08:20 11:47 WBC 4.7 RBC 4.32 L Hgb 13.5 L Hct 40.2 L MCV 93.1 MCH 31.3 MCHC 33.6 RDW 11.6 Plt Count 242 MPV 9.4 Immature Gran % (Auto) 1.5 H Neut % (Auto) 61.0 Lymph % (Auto) 24.4 [place] % (Auto) 9.4 H Eos % (Auto) 2.8 Baso % (Auto) 0.9 Lymph # (Auto) 1.14 [place] # (Auto) 0.4 Eos # (Auto) 0.1 Baso # (Auto) 0.0 Abs Immat Gran (auto) 0.07 H Absolute Neuts (auto) 2.9 Absolute Nucleated RBC 0.000 Nucleated RBC % 0.0 Sodium 138 Potassium 3.9 Chloride 101 Carbon Dioxide 32 H Anion Gap 5 BUN 12 Creatinine 0.61 L Estim Creat Clear Calc 101 Estimated GFR > 60 Glucose 326 H POC Capillary Glucose 287 H 307 H Calcium 8.8 Total Bilirubin 0.3 AST 34 ALT 34 Alkaline Phosphatase 100 Total Protein 6.0 L Albumin 3.3 L Vancomycin Trough
[2024-08-08 17:06] LABS: Glucose Point of Care 283 mg/dl (65-105)
[2024-08-08 20:24] VITALS: BP 156/89; PULSE 73; RESP 18; TEMP 36.6; O2SAT 99
[2024-08-08] MEDS: INSULIN GLARGINE (*BKC) 100 UNITS/ML 25 UNITS SUB-Q (20:41)
[2024-08-08 21:44] LABS: Glucose Point of Care 313 mg/dl (65-105)
[2024-08-09 05:41] VITALS: BP 136/80; PULSE 81; RESP 18; TEMP 36.2; O2SAT 98
[2024-08-09 06:21] LABS: Basophils Percent Auto 0.7 % (0.2-1.2); Eosinophils Absolute Auto 0.1 K/mm3 (0-0.3); Eosinophils Percent Auto 2.1 % (0-4.4); Hematocrit 41.7 % (42.0-52.0); Hemoglobin 14.1 g/dL (14.0-18.0); Immature Granulocyte Absolute 0.09 K/mm3 (0.00-0.031); Immature Granulocyte Percent A 1.5 % (0-0.5); Lymphocytes Absolute Auto 1.15 K/mm3 (0.9-3.2); Lymphocytes Percent Auto 19.7 % (18.3-44.2); Mean Corpuscular HGB Conc 33.8 g/dl (32-36); Mean Corpuscular Hemoglobin 31.4 pg (26-34); Mean Corpuscular Volume 92.9 fl (80-100); Mean Platelet Volume 9.2 fl (7.4-10.4); Monocytes Absolute Auto 0.5 K/mm3 (0.1-0.6); Monocytes Percent Auto 9.2 % (2.6-8.5); Neutrophils Absolute Auto 3.9 K/mm3 (1.3-6.7); Neutrophils Percent Auto 66.8 % (45.5-73.1); Platelet Count Result 255 k/mm3 (150-375); Red Blood Count 4.49 M/mm3 (4.6-6.20); Red Cell Distribution Width 11.6 % (11.5-14.5); White Blood Count 5.8 K/mm3 (4.5-10.0)
[2024-08-09 06:50] LABS: Alanine Aminotransferase 98 U/L (6-50); Albumin Level 3.4 g/dL (3.5-5.1); Alkaline Phosphatase 88 U/L (38-126); Anion Gap 6 mmol/L (4-12); Aspartate Amino Transferase 100 U/L (17-59); Bilirubin,Total 0.3 mg/dL (0.2-1.3); Blood Urea Nitrogen 14 mg/dL (9-20); Calcium 8.9 mg/dL (8.4-10.2); Carbon Dioxide 29 mmol/L (22-30); Chloride 101 mmol/L (98-107); Estimated CRCL calculation 106 ml/min; Estimated Glomerular Filt Rate > 60; Glucose 317 mg/dL (65-110); Potassium 3.8 mmol/L (3.4-5.0); Sodium 136 mmol/L (137-145)
--- NOTE | 2024-08-09 07:51 | P.DS_ITS ---
DS: Admitting Diagnosis Discharge Date 08/09/24 Admitting Diagnosis Periorbital cellulitis left eye, Facial Abscess, MRSA Colonization, DM2, HTN DS: Discharge Diagnosis Discharge Diagnosis (1) Periorbital cellulitis of left eye: Code(s): L03.213 - Periorbital cellulitis Status: Acute Assessment and Plan: * Ampicillin 3 gram IVPB q 6 and Vancomycin 1,500 mg IVPB q12. 08/07/24: * Continue IV abx * Await blood culture results. * Trend labs and VS. 08/08/24: * De-escalate IV abx to po Linezolid and Augmentin. * Blood cultures are still pending. * Continue to trend labs and VS. 08/09/24: * Discharge home on one week of Augmentin and Linezolid. * No growth on BC * Labs and VS stable * Follow up with PCP as outpt. (2) Facial abscess: Code(s): L02.01 - Cutaneous abscess of face Status: Acute Assessment and Plan: * Ampicillin 3 gram IVPB q 6 and Vancomycin 1,500 mg IVPB q12. * MRSA nasal screen is positive, continue Vancomycin. 08/07/24; * Continue all treatment as in #1 08/08/24: * De-escalate IV abx to po Linezolid and Augmentin. * Blood cultures are still pending. * Continue to trend labs and VS. 08/09/24: * See #1 (3) MRSA nasal colonization: Code(s): Z22.322 - Carrier or suspected carrier of Methicillin resistant Staphylococcus aureus Status: Acute Assessment and Plan: * MRSA nasal screen is positive, continue Vancomycin. 08/08/24: * Transition today to oral Linezolid. 08/09/24: * Colonization. Will be placed on po Linezolid. (4) Type 2 diabetes mellitus with hyperglycemia: Code(s): E11.65 - Type 2 diabetes mellitus with hyperglycemia Status: Acute Assessment and Plan: * parent educator. * HgbA1C 11.6% * Hypoglycemic protocol, Glargine 17 units subq qhs, and SSI. 08/07/24: * Increase Lantus to 20 units HS from 17 for fasting glucose of 246. 08/08/24: * Increase Lantus to 25 units and change SSI to high dose with meals and at HS. * Fasting glucose this AM 326. * A1C was 11.6. 08/09/24: * Fasting glucose this AM is 317. * Increase Lantus to 30 units HS. * Continue SSI high dose. * Pt will have to be discharged to home on Insulin. (5) Hypertension: Code(s): I10 - Essential (primary) hypertension Status: Chronic Assessment and Plan: * Blood pressure 128/74 * Continue Lisinopril 10 mg PO daily. 08/08/24: * BP's have been waxing and waning ranging 120s-160/70s-90s. * Increase Lisinopril to 20 mg po daily. * Continue to monitor BP trends. 08/09/24: * BP improved overall. Today 136/80. DS: Summary Hospital Course Reason for hospitalization: Cellulitis of face with abscess Hospital Course: This is a 64-year-old male with history of cellulitis, hypertension, and type 2 diabetes mellitus who presented to the emergency department for evaluation of left eye swelling and redness. The patient provides the following history. He gives a 3 day history of pain, redness, and swelling along the left side of the nose and left eye. He was seen at urgent care and was referred to the ED to rule out orbital cellulitis however he declined and he was prescribed Augmentin which he has been taking however the pain, redness, and swelling seemed to be getting worse. He does have a hx of MRSA and he admits to this provider that the pain and swelling began after he attempted to pull his own tooth, which he states he normally does. During his admission it was found that he was extremely hyperglycemic and he was started on Insulin and titrated up to High dose SSI, as well as Lantus 30 units at HS. His A1C was >11.0. Pt is hesitant to initiate insulin at home and states metformin works best for him, but he is educated that without better control of his glucose that he will not heal from his current infection. In addition his Lisinopril was titrated up to 20 mg daily instead of 10 mg as he remained hypertensive. He will be referred back to PCP for further titration/discussion of current treatments. Status at Discharge Cognitive/behavioral status at discharge: At baseline Functional status at discharge: independent ambulation Overall status at discharge: patient is progressing back to baseline Time Spent with Patient Time attestation: Total time spent providing and/or coordinating discharge services: Time spent: Greater than 30 minutes Specific discharge activities: Follow up, medications for discharge, need for insulin Exam Narrative: General: Pt laying supine at this time in no acute distress. HEENT: Erythema and swelling noted in the left periorbital region with tenderness to palpation, but overall improvement. Extraocular motions are intact. Some broken teeth and poor dentition overall is noted. Neck: Supple, FROM Respiratory: Lungs are clear to auscultation bilaterally. Cardiovascular: Regular rate and rhythm with S1-S2. Gastrointestinal: Abdomen is soft, nontender, and nondistended with positive bowel sounds. Skin: Warm and dry. No rash or lesions on limited exam. Extremities: No cyanosis, clubbing, or edema. Radial and pedal pulses intact. Neurological: Alert. Cranial nerves 2-12 are grossly intact. No gross focal deficits to casual conversation. Psychiatric: Cooperative with appropriate mood and affect. DS: Data Data Completed and Pending Completed studies during hospitalization: ITS Impressions Face CT 08/05/24 11:21 IMPRESSION: 1. 4 mm abscess at the junction of the nose and left cheek. 2. Chronic encephalomalacia in right frontal lobe. Labs on day of discharge: Labs from last 24 hours 08/09/24 08/08/24 08/08/24 05:56 20:30 17:02 WBC 5.8 RBC 4.49 L Hgb 14.1 Hct 41.7 L MCV 92.9 MCH 31.4 MCHC 33.8 RDW 11.6 Plt Count 255 MPV 9.2 Immature Gran % (Auto) 1.5 H Neut % (Auto) 66.8 Lymph % (Auto) 19.7 Reagan % (Auto) 9.2 H Eos % (Auto) 2.1 Baso % (Auto) 0.7 Lymph # (Auto) 1.15 Reagan # (Auto) 0.5 Eos # (Auto) 0.1 Baso # (Auto) 0.0 Abs Immat Gran (auto) 0.09 H Absolute Neuts (auto) 3.9 Absolute Nucleated RBC 0.000 Nucleated RBC % 0.0 Sodium 136 L Potassium 3.8 Chloride 101 Carbon Dioxide 29 Anion Gap 6 BUN 14 Creatinine 0.58 L Estim Creat Clear Calc 106 Estimated GFR > 60 Glucose 317 H POC Capillary Glucose 313 H 283 H Calcium 8.9 Total Bilirubin 0.3 AST 100 H ALT 98 H Alkaline Phosphatase 88 Total Protein 7.0 Albumin 3.4 L 08/08/24 08/08/24 11:47 08:20 WBC RBC Hgb Hct MCV MCH MCHC RDW Plt Count MPV Immature Gran % (Auto) Neut % (Auto) Lymph % (Auto) Reagan % (Auto) Eos % (Auto) Baso % (Auto) Lymph # (Auto) Reagan # (Auto) Eos # (Auto) Baso # (Auto) Abs Immat Gran (auto) Absolute Neuts (auto) Absolute Nucleated RBC Nucleated RBC % Sodium Potassium Chloride Carbon Dioxide Anion Gap BUN Creatinine Estim Creat Clear Calc Estimated GFR Glucose POC Capillary Glucose 307 H 287 H Calcium Total Bilirubin AST ALT Alkaline Phosphatase Total Protein Albumin Preliminary micro results at discharge 08/05/24 10:29 Blood Culture - Preliminary Blood 08/05/24 10:29 Blood Culture - Preliminary Blood Discharge Plan Discharge Attending physician on discharge: Kelsi Jhaveri Discharging Clinician: Kelsi Jhaveri Anticipated Discharge Date/Time: 08/09/24 08:01 Patient Disposition: Home, Self-Care Activity: as tolerated Diet: diabetic Discharge Instructions: please send labs to PCP upon discharge Take all medications as ordered. Follow up with your PCP CHERIE. Do not attempt to pull your own teeth. Follow a diabetic diet. Check you glucose before every meal and before bedtime. Dose your insulin as ordered. Patient Instructions: Antibiotic Form Patient Language: Azeri Stand Alone Forms: General Discharge Information Follow-up/Referrals: Josias,Stephanie Mcqueen ANP [Primary Care Provider] - Call for Appointment Discharge Medications: New dextrose [Glutose-15] 40 % Gel 15 g PO PRN PRN (Reason: Hypoglycemia) Qty: 112.5 0RF Rx Instructions: Use if glucose is less than 70 hydrocodone-acetaminophen 5-325 mg Tablet 1 tablet PO Q6H PRN (Reason: Pain Rated 4-10) Qty: 12 0RF lisinopril 20 mg Tablet 20 mg PO DAILY Qty: 30 0RF linezolid 600 mg Tablet 600 mg PO Q12HR Qty: 14 0RF insulin degludec [Tresiba FlexTouch U-100] 100 unit/mL (3 mL) insulin pen 20 unit subcut HS Qty: 15 0RF insulin aspart U-100 [Novolog FlexPen U-100 Insulin] 100 unit/mL (3 mL) insulin pen See Protocol subcut USEASDIRECTD Qty: 15 0RF Protocol: Insulin Corrective High-Dose Condition: glucose < 70 mg/dl Dose/Route: Follow hypoglycemia order Condition: glucose 70-200 mg/dl Dose/Route: No additional insulin Condition: glucose 201-250 mg/dl Dose/Route: 4 units sub-Q Condition: glucose 251-300 mg/dl Dose/Route: 5 units sub-Q Condition: glucose 301-350 mg/dl Dose/Route: 6 units sub-Q Condition: glucose 351-400 mg/dl Dose/Route: 8 units sub-Q Condition: glucose > 400 mg/dl Dose/Route: Call MD Protocol Text: *No Correction Dose at Bedtime* (DME) blood-glucose meter [True Metrix Glucose Meter] Misc See Rx Instructions .Route Qty: 1 0RF Rx Instructions: As directed (DME) True Metrix Glucose Test Strip Strip See Rx Instructions .Route Qty: 100 3RF Rx Instructions: As directed (DME) lancing device [lancing device with lancets] Mis See Rx Instructions .Route Qty: 1 0RF Rx Instructions: As directed (DME) pen needle, diabetic [BD Ultra-Fine Micro Pen Needle] 32 gauge x 1/4 needle 1 ea miscellaneous QID Qty: 100 3RF Continued meloxicam 15 mg tablet 15 mg PO DAILY ascorbic acid (vitamin C) [Vitamin C] 500 mg tablet 500 mg PO DAILY vitamin E (dl, acetate) 180 mg (400 unit) capsule 180 mg PO DAILY amoxicillin-pot clavulanate 875-125 mg tablet 1 tablet PO Q12H 5 Days Qty: 10 0RF Discontinued lisinopril 10 mg tablet 10 mg PO DAILY ibuprofen 800 mg tablet 800 mg PO TID PRN (Reason: pain) Qty: 15 0RF lidocaine HCl [Lidocaine Viscous] 2 % solution 1 applic mucous membrane TID PRN (Reason: pain) Qty: 100 0RF Rx Instructions: apply with cotton swab to site of pain potassium 99 mg tablet 99 mg PO DAILY Patient Comments: over the counter Date of admission: 08/06/24 09:25 Primary Care Provider: JosiasStephanie Admitting Provider: Dean Jewell Attending physician on admission: Kelsi Jhaveri Condition: Stable Quality VTE Prophylaxis VTE prophylaxis: mechanical ordered Hospitalist MIPS Heart Failure (Exclusion) Patient has history of Heart Transplant or Left Ventricular Assistive Device?: No IF YES, STOP HERE Heart Failure (Qualifier) Patient has current or prior documentation of LVEF less than or equal to 40%, or mod/servere depressed LVSF?: No IF NO, STOP HERE
[2024-08-09] MEDS: LINEZOLID 600 MG TABLET PO (08:19)
[2024-08-09] MEDS: lisinopriL 20 MG TABLET PO (08:20)
[2024-08-09] MEDS: ASCORBIC ACID 500 MG TABLET PO (08:20)
[2024-08-09] MEDS: MUPIROCIN 2% OINT 22 GM TUBE 1 APPLIC EACH NARE (08:20)
[2024-08-09] MEDS: AMOXICILLIN/CLAVULANATE K 875-125 MG TAB 1 TABLET PO (08:20)
[2024-08-09] MEDS: ENOXAPARIN 40 MG/0.4 ML SYRINGE SUB-Q (08:20)
[2024-08-09] MEDS: KETOROLAC 30 MG/ML VIAL (*BKC) IV PUSH (08:23)
[2024-08-09 08:42] LABS: Glucose Point of Care 337 mg/dl (65-105)
[2024-08-09] MEDS: INSULIN ASPART (*BKC) 100 UNITS/ML SUB-Q (09:12)
--- NOTE | 2024-08-12 15:09 | PCCDE ---
08/12/24 15:08 Just hung up phone with pt. He reports to just walking back into his home. Went to ex- after Discharge. To get insulin later today. C/O Cost Pt denies education needs or questions. Hurried me off the phone asking if there was anything more I needed. - Discussed insurance coverage of insulin and glucometer - Enc'd to call with DM questions in future. FJ
== END 2024-08-09 10:49 | disposition home or self-care (01) | DRG 603 ==
LOC: ANHED 17:24 → ANH3MEDSUR 18:16 → ANH3MED 20:55
PROVIDERS: Nurse Practitioner Family; Physician Assistant; Admitting Provider Internal Medicine; Emergency Provider Physician Assistant; PCP Nurse Practitioner; Visit Provider Nurse Practitioner Adult Health
DX: L03.213 Periorbital cellulitis (principal); L02.01 Cutaneous abscess of face; E11.65 Type 2 diabetes mellitus with hyperglycemia; I10 Essential (primary) hypertension; Z22.322 Carrier or suspected carrier of Methicillin resistant Staphylococcus aureus; Z91.199 Patient's noncompliance with other medical treatment and regimen due to unspecified reason
CPT/HCPCS: 36415; 70487; 80048; 80053; 80202; 81001; 82948; 83036; 83605; 83735; 85025; 85027; 85610; 85730; 86140; 87040; 87641; 93005; 96361; 96365; 96366; 96367; 96372; 96375; 99285; A9270; G0378; J0295; J0692; J1650; J1815; J1885; J3370; J7030; Q9967

== ENCOUNTER 2025-01-06 11:26 | Emergency (ER) | payer OTHER, SELFPAY ==
--- NOTE | ~2025-01-06 | XR_ITS ---
EXAM/ PROCEDURE: XR foot LT min 3V - 01/06/2025 14:30 CDT HISTORY: 64 years old Male with diabetic foot wound, 3rd toe COMPARISON: None available TECHNIQUE: Three view(s) FINDINGS/ IMPRESSION: No cortical deformity or cortical erosion seen to suggest osteomyelitis. There are no fractures or dislocations.Joint space narrowing, subchondral sclerosis, subchondral cyst formation and osteophyte formation, compatible with mild osteoarthritis. Reviewed, dictated and finalized at location A.
[2025-01-06 11:27] VITALS: BP 144/80; PULSE 110; RESP 17; TEMP 36.5; O2SAT 98
--- OUTSIDE RECORDS SUMMARY | 2025-01-06 11:36 | XMS_ITS | Clinical Summary ---
Author Organization [facility] Address [address] [place] [id number] Care Team Providers Care Director Sales And Marketing Name Role Phone Samm Govea MD Primary Care Provider Allergies Active Allergy Reactions Criticality Noted Date Comments Monosodium Glutamate Unknown 12/02/2019 palpitations Medications lisinopriL (PRINIVIL,ZESTR IL) 10 mg tabletIndicatio ns:hypertension Take 10 mg by mouth lime kiln worker helper before breakfast Active empagliflozin (JARDIANCE) 25 mg tabletIndicatio ns:type 2 diabetes mellitus Take 25 mg by mouth lime kiln worker helper before breakfast Active vitamin E (AQUASOL E) 200 unit capsuleIndicati ons:supplement Take 200 Units by mouth lime kiln worker helper before breakfast Active potassium gluconate 500 mg [...] (12/03/2019): Added automatically from request for surgery [id number] Surgical History Surgery Date Site/Laterality Comments NO [...] on file 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 Gender Identity Not on file Sexual Orientation Not on file Obstetrics History Last Filed Vital Signs Vital Sign Reading Time Taken Comments Blood Pressure 132/77 12/25/2019 11:47 AM CDT Pulse 90 12/25/2019 11:47 AM CDT Temperature 37.3 C (99.1 F) 12/25/2019 11:47 AM CDT Respiratory Rate 18 12/25/2019 11:47 AM CDT Oxygen Saturation 98% 12/25/2019 11:47 AM CDT Inhaled Oxygen Concentration - - Weight 83.5 kg (184 lb) 12/24/2019 7:09 AM CDT Height 172.7 cm (5' 8) 12/24/2019 7:09 AM CDT Body Mass Index 27.98 12/24/2019 7:09 AM CDT Plan of Treatment Not on file Medical Devices Implanted Type Area Real Estate Broker Device Identifier Shelf Expiration Date Model / Serial / Lot [employer] [id number] Delta Xtend 27mm Cementless Shoulder Standard Component Glenoid Latex Free - [id number] Implanted:Qty: 1 on 12/24/2019 by Chico Collins MD at [facility] Right: Shoulder [employer] [id number] 08/02/2024 [id number] / / [id number] [employer] [id number] Delta Xtend 4.5mm 48mm Lock Shoulder Glenoid Screw Bone Metaglene - [id number] Implanted:Qty: 1 on 12/24/2019 by Chico Collins MD at [facility] Right: Shoulder [employer] [id number] 07/02/2024 [id number] / / [id number] [employer] [id number] Delta Xtend 4.5mm 42mm Lock Shoulder Glenoid Screw Bone Metaglene - [id number] Implanted:Qty: 1 on 12/24/2019 by Chico Collins MD at [facility] Right: Shoulder [employer] [id number] 08/02/2024 [id number] / / [id number] [employer] [id number] Component Glenoid Delta Xtend +4mm Eccentric Od42mm - [id number] Implanted:Qty: 1 on 12/24/2019 by Chico Collins MD at [facility] Right: Shoulder [employer] [id number] 10/01/2023 [id number] / / [id number] [employer] [id number] Global Unite 12mm 120mm Modular Shoulder Standard Stem Humeral - [id number] Implanted:Qty: 1 on 12/24/2019 by Chico Collins MD at [facility] Right: Shoulder [employer] [id number] 11/30/2028 [id number] / / [id number] [employer] [id number] Delta Xtend Cementless Modular Shoulder Right Epiphysis 155d 1 Latex Free - [id number] Implanted:Qty: 1 on 12/24/2019 by Chico Collins MD at [facility] Right: Shoulder [employer] [id number] 08/02/2024 [id number] / / [id number] [employer] [id number] Delta Xtend 42mm Shoulder +3mm Standard Cup Humeral Polyethylene Latex Free - [id number] Implanted:Qty: 1 on 12/24/2019 by Chico Collins MD at [facility] Right: Shoulder [employer] [id number] 06/01/2024 [id number] / / [id number] Explanted Type Area Real Estate Broker Device Identifier Shelf Expiration Date Model / Serial / Lot [employer] [id number] Rena 3/32in 9in 2 Trocar Pin Fixation Nonsterile - [id number] Explanted:Qty: 1 on 12/24/2019 by Chico Collins MD at [facility] Right: Shoulder [employer] [id number] S / / Insurance [place] Advance Directives For more information, please contact: [phone] * Full Code (Latest Code Status on File) Date Activated Date Inactivated Comments 12/24/2019 2:33 PM 12/25/2019 6:44 PM Care Teams Director Sales And Marketing Relationship Specialty Start Date End Date Samm Govea MD [address] [place] [address] PCP - General 12/24/19
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
--- OUTSIDE RECORDS SUMMARY | 2025-01-06 11:36 | XMS_ITS | Referral Summary ---
Author Organization [facility] Address [address] [place] [address] Care Team Providers Care Reheater Helper Name Role Phone Samm Govea MD Primary Care Provider Allergies Active Allergy Reactions Criticality Noted Date Comments Monosodium Glutamate Unknown 12/02/2019 palpitations Medications lisinopriL (PRINIVIL,ZESTR IL) 10 mg tabletIndicatio ns:hypertension Take 10 mg by mouth protein scientist before breakfast Active empagliflozin (JARDIANCE) 25 mg tabletIndicatio ns:type 2 diabetes mellitus Take 25 mg by mouth protein scientist before breakfast Active vitamin E (AQUASOL E) 200 unit capsuleIndicati ons:supplement Take 200 Units by mouth protein scientist before breakfast Active potassium gluconate 500 mg [...] (12/03/2019): Added automatically from request for surgery [id number] Social History Tobacco Use Types Packs/Day Years Used Date Smoking Tobacco: Never Smokeless Tobacco: Never Alcohol Use Standard Drinks/Week Comments Yes 14 (1 standard drink = 0.6 oz pu re alcohol) Sex and Gender Information Value Date Recorded Sex Assigned at Not on file Legal Sex Male 7:44 PM [employer] Gender Identity Not on file Sexual Orientation [...] on file Medical Devices Implanted Type Area Environmental Aid Device Identifier Shelf Expiration Date Model / Serial / Lot [employer] [id number] Delta Xtend 27mm Cementless Shoulder Standard Component Glenoid Latex Free - [id number] Implanted:Qty: 1 on 12/24/2019 by Chico Collins MD at [facility] Right: Shoulder [employer] [id number] 08/02/2024 [id number] / / [id number] [employer] [id number] Delta Xtend 4.5mm 48mm Lock Shoulder Glenoid Screw Bone Metaglene - [id number] Implanted:Qty: 1 on 12/24/2019 by Chico Collins MD at [facility] Right: Shoulder [employer] [id number] 07/02/2024 [id number] / / [id number] [employer] [id number] Delta Xtend 4.5mm 42mm Lock Shoulder Glenoid Screw Bone Metaglene - [id number] Implanted:Qty: 1 on 12/24/2019 by Chico Collins MD at [facility] Right: Shoulder [employer] [id number] 08/02/2024 [id number] / / [id number] [employer] [id number] Component Glenoid Delta Xtend +4mm Eccentric Od42mm - [id number] Implanted:Qty: 1 on 12/24/2019 by Chico Collins MD at [facility] Right: Shoulder [employer] [id number] 10/01/2023 [id number] / / [id number] [employer] [id number] Global Unite 12mm 120mm Modular Shoulder Standard Stem Humeral - [id number] Implanted:Qty: 1 on 12/24/2019 by Chico Collins MD at [facility] Right: Shoulder [employer] [id number] 11/30/2028 [id number] / / [id number] [employer] [id number] Delta Xtend Cementless Modular Shoulder Right Epiphysis 155d 1 Latex Free - [id number] Implanted:Qty: 1 on 12/24/2019 by Chico Collins MD at [facility] Right: Shoulder [employer] [id number] 08/02/2024 [id number] / / [id number] [employer] [id number] Delta Xtend 42mm Shoulder +3mm Standard Cup Humeral Polyethylene Latex Free - [id number] Implanted:Qty: 1 on 12/24/2019 by Chico Collins MD at [facility] Right: Shoulder [employer] [id number] 06/01/2024 [id number] / / [id number] Explanted Type Area Environmental Aid Device Identifier Shelf Expiration Date Model / Serial / Lot [employer] [id number] Steinmann 3/32in 9in 2 Trocar Pin Fixation Nonsterile - [id number] Explanted:Qty: 1 on 12/24/2019 by Chico Collins MD at [facility] Right: Shoulder [employer] [id number] S / / Insurance [place] Advance Directives For more information, please contact: [phone] * Full Code (Latest Code Status on File) Date Activated Date Inactivated Comments 12/24/2019 2:33 PM 12/25/2019 6:44 PM Care Teams Reheater Helper Relationship Specialty Start Date End Date Samm Govea MD [address] [place] [address] PCP - General 12/24/19
--- NOTE | 2025-01-06 13:10 | ED_ITS ---
HPI - Skin/Abscess/Foreign Bdy General Chief complaint: Skin/Abscess/Foreign Body <Nidia Bull PA-C - Last Filed: 01/07/25 09:36> Stated complaint: infected toe <Nidia Bull PA-C - Last Filed: 01/07/25 09:36> Time Seen by Provider: 01/06/25 13:10 <Nidia Bull PA-C - Last Filed: 01/07/25 09:36> Focused HPI: This is a 64 year old male that presents to the ER for infected left 3rd toe. Ongoing over the last week. He has not seen anyone for this complaint yet. He has been off of his diabetic medications for about a year he thinks. GENERAL: Well-appearing, well-nourished, and in no acute distress. HEAD: Normocephalic, atraumatic. CHEST: Clear to auscultation. ?No respiratory distress. HEART: Regular rate and rhythm.? NEURO: ?Alert and oriented x3. EXTREMITY: Left 3rd toe is erythematous and swollen with ulceration present to the distal phalanx with abnormal drainage Patient screened in triage and initial orders placed.? ?Additional care and disposition to be based upon?diagnostic testing and treatment. <Nidia Bull PA-C - Last Filed: 01/07/25 09:36> History of Present Illness HPI narrative: as per mse <Shelli Mota III, DO - Last Filed: 01/06/25 21:36> Related Data Home medications: Home Medications ?Medication ?Instructions ?Recorded ?Confirmed ?Last Taken ?Type meloxicam 15 mg tablet 15 mg PO DAILY 08/03/24 08/05/24 08/05/24 History ascorbic acid (vitamin C) 500 mg 500 mg PO DAILY 08/05/24 08/05/24 08/05/24 History tablet (Vitamin C) vitamin E (dl, acetate) 180 mg 180 mg PO DAILY 08/05/24 08/05/24 08/05/24 History (400 unit) capsule <Nidia Bull PA-C - Last Filed: 01/07/25 09:36> Allergies/Adverse reactions: Allergies Allergy/AdvReac Type Severity Reaction Status Date / Time monosodium glutamate Allergy Unknown Unknown Verified 01/06/25 13:21 <Nidia Bull PA-C - Last Filed: 01/07/25 09:36> Review of Systems 2 Review of Systems: All systems reviewed & are unremarkable except as noted in HPI and below <Shelli Mota III, DO - Last Filed: 01/06/25 21:36> PMFSH Past Medical History Medical History: Medical History (Updated 01/07/25 @ 09:36 by Nidia Bull PA-C) Cellulitis Type 2 diabetes mellitus Hypertension <Nidia Bull PA-C - Last Filed: 01/07/25 09:36> Surgical History Surgical History: Surgical History (Updated 08/05/24 @ 20:13 by Stephanie Matthews PA-C) History of shoulder surgery <Nidia Bull PA-C - Last Filed: 01/07/25 09:36> Family History Family History: Family History (Updated 08/05/24 @ 20:13 by Stephanie Matthews PA-C) Other Family history non-contributory <Nidia Bull PA-C - Last Filed: 01/07/25 09:36> Social History Social History: Social History (Updated 08/05/24 @ 20:14 by Stephanie Matthews PA-C) Social History: Surrogate medical decision maker: Kate Shah ([phone]). Code status: Full code. Smoking status: Never smoker Alcohol intake: current Drinks per week: 24 Alcohol use details: on average 3 beers a night, sometimes less Substance use type: marijuana Do You Feel Safe in your Home?: Yes Lack of Transportation: No Lack of Food: Never True Current Housing: I Have Housing Concerned About Future Housing: No Difficulty Paying Gas/Electric Bills: No Difficulty Paying for Meds: No Currently Unemployed: No Education: Decline to Answer Difficulty w/ Childcare or Family Care: No Spiritual care concerns: No <Nidia Bull PA-C - Last Filed: 01/07/25 09:36> Exam 2 Const: General: healthy appearing and no acute distress <Shelli Mota III, DO - Last Filed: 01/06/25 21:36> Nutritional Appearance: well nourished <Shelli Mota III, DO - Last Filed: 01/06/25 21:36> Orientation/consciousness: patient oriented x3 <Shelli Holland Mota III, DO - Last Filed: 01/06/25 21:36> Limitations: no limitations <Shelli Holland Mota III, DO - Last Filed: 01/06/25 21:36> Resp: Effort & Inspection: normal respiratory effort <Shelli Holland Mota III, DO - Last Filed: 01/06/25 21:36> Auscultation: clear to auscultation bilaterally <Shelli Holland Mota III, DO - Last Filed: 01/06/25 21:36> Cardio: Rate: regular rate <Shelli Holland Mota III, DO - Last Filed: 01/06/25 21:36> Rhythm: regular rhythm <Shelli Holland Mota III, DO - Last Filed: 01/06/25 21:36> Skin: Wounds: wounds noted (draining wound bottom of 3rd left toe with erythema and swelling to toe) <Shelli Holland Mota III, DO - Last Filed: 01/06/25 21:36> Neuro: General: patient oriented x3, moves all extremities, no meningeal signs and no focal motor deficits <Shelli Holland Mota III, DO - Last Filed: 01/06/25 21:36> Speech: normal speech <Shelli Holland Mota III, DO - Last Filed: 01/06/25 21:36> Extrem: General: no clubbing, cyanosis or edema and no pedal edema <Shelli Holland Mota III, DO - Last Filed: 01/06/25 21:36> Psych: Mental Status: mental status grossly normal <Shelli Holland Mota III, DO - Last Filed: 01/06/25 21:36> Affect: normal affect <Shelli Holland Mota III, DO - Last Filed: 01/06/25 21:36> Attitude: cooperative <Shelli Holland Mota III, DO - Last Filed: 01/06/25 21:36> Course Vital Signs Vital signs: Vital Signs Temperature 97.7 F 01/06/25 11:27 Pulse Rate 110 H 01/06/25 11:27 Respiratory Rate 17 01/06/25 11:27 Blood Pressure 144/80 H 01/06/25 11:27 Pulse Oximetry 98 01/06/25 11:27 Oxygen Delivery Room Air 07/07/25 11:27 Temperature 97.7 F 01/06/25 11:27 Pulse Rate 88 01/06/25 17:10 Respiratory Rate 19 01/06/25 17:10 Blood Pressure 145/79 H 01/06/25 17:10 Pulse Oximetry 100 01/06/25 17:10 Oxygen Delivery Room Air 01/06/25 11:27 <Nidia Bull PA-C - Last Filed: 01/07/25 09:36> Vital Signs Temperature 97.7 F 01/06/25 11:27 Pulse Rate 110 H 01/06/25 11:27 Respiratory Rate 17 01/06/25 11:27 Blood Pressure 144/80 H 01/06/25 11:27 Pulse Oximetry 98 01/06/25 11:27 Oxygen Delivery Room Air 01/06/25 11:27 Temperature 97.7 F 01/06/25 11:27 Pulse Rate 88 01/06/25 17:10 Respiratory Rate 19 01/06/25 17:10 Blood Pressure 145/79 H 01/06/25 17:10 Pulse Oximetry 100 01/06/25 17:10 Oxygen Delivery Room Air 01/06/25 11:27 <Shelli Mota III, DO - Last Filed: 01/06/25 21:36> MDM - Skin/Abscess/Foreign Bdy MDM Narrative Medical decision making narrative: Pt off meds for diabetes for a year due to PCP dropping him because his insurance only allowed for a visit a year. appears to have cellulitis of toe at minimum but will need to rule out osteomyelitis and start IV antibiotics. labs and x ray ok. Gave dose of IV antibiotics here. discussed with Linda Gardner who came and examined the patient and feels he can be sent home on po antibiotics < Shelli Mota III, DO - Last Filed: 01/06/25 21:36> Lab Data Result diagrams: 01/06/25 13:36 01/06/25 13:36 <Nidia Bull PA-C - Last Filed: 01/07/25 09:36> Labs: Lab Results 01/06/25 Range/Units 13:36 WBC 6.2 (4.5-10.0) K/mm3 RBC 4.80 (4.6-6.20) M/mm3 Hgb 15.1 (14.0-18.0) g/dL Hct 45.5 (42.0-52.0) % MCV 94.8 (80-100) fl MCH 31.5 (26-34) pg MCHC 33.2 (32-36) g/dl RDW 11.9 (11.5-14.5) % Plt Count 210 (150-375) k/mm3 MPV 9.7 (7.4-10.4) fl Immature Gran % (Auto) 0.5 (0-0.5) % Neut % (Auto) 76.7 H (45.5-73.1) % Lymph % (Auto) 14.6 L (18.3-44.2) % [place] % (Auto) 5.8 (2.6-8.5) % Eos % (Auto) 1.9 (0-4.4) % Baso % (Auto) 0.5 (0.2-1.2) % Lymph # (Auto) 0.90 (0.9-3.2) K/mm3 [place] # (Auto) 0.4 (0.1-0.6) K/mm3 Eos # (Auto) 0.1 (0-0.3) K/mm3 Baso # (Auto) 0.0 (0.0-0.1) K/mm3 Abs Immat Gran (auto) 0.03 (0.00-0.031) K/mm3 Absolute Neuts (auto) 4.7 (1.3-6.7) K/mm3 Absolute Nucleated RBC 0.000 (0.0-0.012) K/mm3 Nucleated RBC % 0.0 (0.0-0.2) % ESR 15 (0-20) mm/hr Sodium 138 (137-145) mmol/L Potassium 4.6 (3.4-5.0) mmol/L Chloride 100 (98-107) mmol/L Carbon Dioxide 29 (22-30) mmol/L Anion Gap 9 (4-12) mmol/L BUN 15 (9-20) mg/dL Creatinine 0.64 L (0.7-1.3) mg/dL Estim Creat Clear Calc 102 ml/min Estimated GFR > 60 (59 - ) Glucose 361 H (65-110) mg/dL Hemoglobin A1c 11.0 H (<5.7) % Lactic Acid 1.4 (0.7-2.0) mmol/L Calcium 9.8 (8.4-10.2) mg/dL Total Bilirubin 0.5 (0.2-1.3) mg/dL AST 29 (17-59) U/L ALT 23 (6-50) U/L Alkaline Phosphatase 100 (38-126) U/L C-Reactive Protein 1.9 H (<1.0) mg/dL Total Protein 7.9 (6.3-8.2) g/dL Albumin 4.1 (3.5-5.1) g/dL <Nidia Bull PA-C - Last Filed: 01/07/25 09:36> Lab Results 01/06/25 Range/Units 13:36 WBC 6.2 (4.5-10.0) K/mm3 RBC 4.80 (4.6-6.20) M/mm3 Hgb 15.1 (14.0-18.0) g/dL Hct 45.5 (42.0-52.0) % MCV 94.8 (80-100) fl MCH 31.5 (26-34) pg MCHC 33.2 (32-36) g/dl RDW 11.9 (11.5-14.5) % Plt Count 210 (150-375) k/mm3 MPV 9.7 (7.4-10.4) fl Immature Gran % (Auto) 0.5 (0-0.5) % Neut % (Auto) 76.7 H (45.5-73.1) % Lymph % (Auto) 14.6 L (18.3-44.2) % [place] % (Auto) 5.8 (2.6-8.5) % Eos % (Auto) 1.9 (0-4.4) % Baso % (Auto) 0.5 (0.2-1.2) % Lymph # (Auto) 0.90 (0.9-3.2) K/mm3 [place] # (Auto) 0.4 (0.1-0.6) K/mm3 Eos # (Auto) 0.1 (0-0.3) K/mm3 Baso # (Auto) 0.0 (0.0-0.1) K/mm3 Abs Immat Gran (auto) 0.03 (0.00-0.031) K/mm3 Absolute Neuts (auto) 4.7 (1.3-6.7) K/mm3 Absolute Nucleated RBC 0.000 (0.0-0.012) K/mm3 Nucleated RBC % 0.0 (0.0-0.2) % ESR 15 (0-20) mm/hr Sodium 138 (137-145) mmol/L Potassium 4.6 (3.4-5.0) mmol/L Chloride 100 (98-107) mmol/L Carbon Dioxide 29 (22-30) mmol/L Anion Gap 9 (4-12) mmol/L BUN 15 (9-20) mg/dL Creatinine 0.64 L (0.7-1.3) mg/dL Estim Creat Clear Calc 102 ml/min Estimated GFR > 60 (59 - ) Glucose 361 H (65-110) mg/dL Hemoglobin A1c 11.0 H (<5.7) % Lactic Acid 1.4 (0.7-2.0) mmol/L Calcium 9.8 (8.4-10.2) mg/dL Total Bilirubin 0.5 (0.2-1.3) mg/dL AST 29 (17-59) U/L ALT 23 (6-50) U/L Alkaline Phosphatase 100 (38-126) U/L C-Reactive Protein 1.9 H (<1.0) mg/dL Total Protein 7.9 (6.3-8.2) g/dL Albumin 4.1 (3.5-5.1) g/dL <Shelli Mota III, DO - Last Filed: 01/06/25 21:36> Imaging Data Radiologist's impression: EXAM/ PROCEDURE: XR foot LT min 3V - 01/06/2025 14:30 CDT HISTORY: 64 years old Male with diabetic foot wound, 3rd toe COMPARISON: None available TECHNIQUE: Three view(s) FINDINGS/ IMPRESSION: No cortical deformity or cortical erosion seen to suggest osteomyelitis. There are no fractures or dislocations.Joint space narrowing, subchondral sclerosis, subchondral cyst formation and osteophyte formation, compatible with mild osteoarthritis. <Nidia Bull PA-C - Last Filed: 01/07/25 09:36> Critical Care Time Critical Care Time Critical Care Time: No <Nidia Bull PA-C - Last Filed: 01/07/25 09:36> Discharge Plan Discharge Clinical Impression: Cellulitis Qualifiers: Site of cellulitis: extremity Site of cellulitis of extremity: toe Laterality: left Qualified Code(s): L03.032 - Cellulitis of left toe <TEGAN Sagastume Last Filed: 01/07/25 09:36> Patient Disposition: Home <TEGAN Sagastume Last Filed: 01/07/25 09:36> Condition: Stable <TEGAN Sagastume Last Filed: 01/07/25 09:36> Instructions: Antibiotic Form, Cellulitis (ED) <TEGAN Sagastume Last Filed: 01/07/25 09:36> Patient Language: Albanian <TEGAN Sagastume Last Filed: 01/07/25 09:36> Prescriptions: New clindamycin HCl [Cleocin HCl] 300 mg capsule 300 mg PO Q6H Qty: 40 0RF No Action meloxicam 15 mg tablet 15 mg PO DAILY ascorbic acid (vitamin C) [Vitamin C] 500 mg tablet 500 mg PO DAILY vitamin E (dl, acetate) 180 mg (400 unit) capsule 180 mg PO DAILY dextrose [Glutose-15] 40 % Gel 15 g PO PRN PRN (Reason: Hypoglycemia) Qty: 112.5 0RF Rx Instructions: Use if glucose is less than 70 hydrocodone-acetaminophen 5-325 mg Tablet 1 tablet PO Q6H PRN (Reason: Pain Rated 4-10) Qty: 12 0RF lisinopril 20 mg Tablet 20 mg PO DAILY Qty: 30 0RF linezolid 600 mg Tablet 600 mg PO Q12HR Qty: 14 0RF insulin degludec [Tresiba FlexTouch U-100] 100 unit/mL (3 mL) insulin pen 20 unit subcut HS Qty: 15 0RF insulin aspart U-100 [Novolog FlexPen U-100 Insulin] 100 unit/mL (3 mL) insulin pen See Protocol subcut USEASDIRECTD Qty: 15 0RF Protocol: Insulin Corrective High-Dose Condition: glucose < 70 mg/dl Dose/Route: Follow hypoglycemia order Condition: glucose 70-200 mg/dl Dose/Route: No additional insulin Condition: glucose 201-250 mg/dl Dose/Route: 4 units sub-Q Condition: glucose 251-300 mg/dl Dose/Route: 5 units sub-Q Condition: glucose 301-350 mg/dl Dose/Route: 6 units sub-Q Condition: glucose 351-400 mg/dl Dose/Route: 8 units sub-Q Condition: glucose > 400 mg/dl Dose/Route: Call MD Protocol Text: *No Correction Dose at Bedtime* (DME) blood-glucose meter [True Metrix Glucose Meter] Misc See Rx Instructions .Route Qty: 1 0RF Rx Instructions: As directed (DME) True Metrix Glucose Test Strip Strip See Rx Instructions .Route Qty: 100 3RF Rx Instructions: As directed (DME) lancing device [lancing device with lancets] Misc See Rx Instructions .Route Qty: 1 0RF Rx Instructions: As directed (DME) pen needle, diabetic [BD Ultra-Fine Micro Pen Needle] 32 gauge x 1/4 needle 1 ea miscellaneous QID Qty: 100 3RF amoxicillin-pot clavulanate 875-125 mg tablet 1 tablet PO Q12H 5 Days Qty: 10 0RF <Nidia Bull PA-C - Last Filed: 01/07/25 09:36> Follow-up/Referrals: PHYSICIAN,UNDER[facility]ER [Primary Care Provider] - Amanda Sevilla DO [Physician] - <Nidia Bull PA-C - Last Filed: 01/07/25 09:36> Stand Alone Forms: Work/School Release IP <Nidia Bull PA-C - Last Filed: 01/07/25 09:36>
[2025-01-06 13:49] LABS: Hematocrit 45.5 % (42.0-52.0); Hemoglobin 15.1 g/dL (14.0-18.0); Immature Granulocyte Percent A 0.5 % (0-0.5); Lymphocytes Absolute Auto 0.90 K/mm3 (0.9-3.2); Mean Corpuscular HGB Conc 33.2 g/dl (32-36); Mean Corpuscular Hemoglobin 31.5 pg (26-34); Mean Corpuscular Volume 94.8 fl (80-100); Nucleated Red Blood Cells Absolute Auto 0.000 K/mm3 (0.0-0.012); Nucleated Red Blood Cells Perc 0.0 % (0.0-0.2); Platelet Count Result 210 k/mm3 (150-375); Red Blood Count 4.80 M/mm3 (4.6-6.20); White Blood Count 6.2 K/mm3 (4.5-10.0)
--- OUTSIDE RECORDS SUMMARY | 2025-01-06 13:53 | XMS_ITS | Referral Summary ---
Author Organization [facility] Address [address] [place] [id number] Care Team Providers Care Access Assoc Name Role Phone Samm Govea MD Primary Care Provider Allergies Active Allergy Reactions Criticality Noted Date Comments Monosodium Glutamate Unknown 12/02/2019 palpitations Medications lisinopriL (PRINIVIL,ZESTR IL) 10 mg tabletIndicatio ns:hypertension Take 10 mg by mouth cut out operator before breakfast Active empagliflozin (JARDIANCE) 25 mg tabletIndicatio ns:type 2 diabetes mellitus Take 25 mg by mouth cut out operator before breakfast Active vitamin E (AQUASOL E) 200 unit capsuleIndicati ons:supplement Take 200 Units by mouth cut out operator before breakfast Active potassium gluconate 500 mg [...] (12/03/2019): Added automatically from request for surgery [id number] Social History Tobacco Use Types Packs/Day Years Used Date Smoking Tobacco: Never Smokeless Tobacco: Never Alcohol Use Standard Drinks/Week Comments Yes 14 (1 standard drink = 0.6 oz pu re alcohol) Sex and Gender Information Value Date Recorded Sex Assigned at Not on file 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 Gender Identity Not on file Sexual Orientation [...] on file Medical Devices Implanted Type Area Slice Cutting Machine Operator Helper Device Identifier Shelf Expiration Date Model / Serial / Lot [employer] [id number] Delta Xtend 27mm Cementless Shoulder Standard Component Glenoid Latex Free - [id number] Implanted:Qty: 1 on 12/24/2019 by Chico Collins MD at [facility] Right: Shoulder [employer] [id number] 08/02/2024 [id number] / / [id number] [employer] [id number] Delta Xtend 4.5mm 48mm Lock Shoulder Glenoid Screw Bone Metaglene - [id number] Implanted:Qty: 1 on 12/24/2019 by Chico Collins MD at [facility] Right: Shoulder [employer] [id number] 07/02/2024 [id number] / / [id number] [employer] [id number] Delta Xtend 4.5mm 42mm Lock Shoulder Glenoid Screw Bone Metaglene - [id number] Implanted:Qty: 1 on 12/24/2019 by Chico Collins MD at [facility] Right: Shoulder [employer] [id number] 08/02/2024 [id number] / / [id number] [employer] [id number] Component Glenoid Delta Xtend +4mm Eccentric Od42mm - [id number] Implanted:Qty: 1 on 12/24/2019 by Chico Collins MD at [facility] Right: Shoulder [employer] [id number] 10/01/2023 [id number] / / [id number] [employer] [id number] Global Unite 12mm 120mm Modular Shoulder Standard Stem Humeral - [id number] Implanted:Qty: 1 on 12/24/2019 by Chico Collins MD at [facility] Right: Shoulder [employer] [id number] 11/30/2028 [id number] / / [id number] [employer] [id number] Delta Xtend Cementless Modular Shoulder Right Epiphysis 155d 1 Latex Free - [id number] Implanted:Qty: 1 on 12/24/2019 by Chico Collins MD at [facility] Right: Shoulder [employer] [id number] 08/02/2024 [id number] / / [id number] [employer] [id number] Delta Xtend 42mm Shoulder +3mm Standard Cup Humeral Polyethylene Latex Free - [id number] Implanted:Qty: 1 on 12/24/2019 by Chico Collins MD at [facility] Right: Shoulder [employer] [id number] 06/01/2024 [id number] / / [id number] Explanted Type Area Slice Cutting Machine Operator Helper Device Identifier Shelf Expiration Date Model / Serial / Lot [employer] [id number] Steinmann 3/32in 9in 2 Trocar Pin Fixation Nonsterile - [id number] Explanted:Qty: 1 on 12/24/2019 by Chico Collins MD at [facility] Right: Shoulder [employer] [id number] S / / Insurance [place] CHO[place]PO [place] Advance Directives For more information, please contact: [phone] * Full Code (Latest Code Status on File) Date Activated Date Inactivated Comments 12/24/2019 2:33 PM 12/25/2019 6:44 PM Care Teams Access Assoc Relationship Specialty Start Date End Date Samm Govea MD [address] [place] [address] PCP - General 12/24/19
--- OUTSIDE RECORDS SUMMARY | 2025-01-06 13:53 | XMS_ITS | Clinical Summary ---
Author Organization [facility] Address [address] [place] [id number] Care Team Providers [employer] Magazine Hand Name Role Phone Samm Govea MD Primary Care Provider Allergies Active Allergy Reactions Criticality Noted Date Comments Monosodium Glutamate Unknown 12/02/2019 palpitations Medications lisinopriL (PRINIVIL,ZESTR [place]) 10 mg tabletIndicatio ns:hypertension Take 10 mg by mouth manager hardware before breakfast Active empagliflozin (JARDIANCE) 25 mg tabletIndicatio ns:type 2 diabetes mellitus Take 25 mg by mouth manager hardware before breakfast Active vitamin E (AQUASOL E) 200 unit capsuleIndicati ons:supplement Take 200 Units by mouth manager hardware before breakfast Active potassium gluconate 500 mg [...] (12/03/2019): Added automatically from request for surgery [id number] Surgical History Surgery Date Site/Laterality Comments NO [...] on file 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 Right: Shoulder [employer] [id number] 08/02/2024 [id number] / / [id number] [employer] [id number] Delta Xtend 4.5mm 48mm Lock Shoulder Glenoid Screw Bone Metaglene - [id number] Implanted:Qty: 1 on 12/24/2019 by Chico Collins MD at [facility] Right: Shoulder [employer] [id number] 07/02/2024 [id number] / / [id number] [employer] [id number] Delta Xtend 4.5mm 42mm Lock Shoulder Glenoid Screw Bone Metaglene - [id number] Implanted:Qty: 1 on 12/24/2019 by Chico Collins MD at [facility] Right: Shoulder [employer] [id number] 08/02/2024 [id number] / / [id number] [employer] [id number] Component Glenoid Delta Xtend +4mm Eccentric Od42mm - [id number] Implanted:Qty: 1 on 12/24/2019 by Chico Collins MD at [facility] Right: Shoulder [employer] [id number] 10/01/2023 [id number] / / [id number] [employer] [id number] Global Unite 12mm 120mm Modular Shoulder Standard Stem Humeral - [id number] Implanted:Qty: 1 on 12/24/2019 by Chico Collins MD at [facility] Right: Shoulder [employer] [id number] 11/30/2028 [id number] / / [id number] [employer] [id number] Delta Xtend Cementless Modular Shoulder Right Epiphysis 155d 1 Latex Free - [id number] Implanted:Qty: 1 on 12/24/2019 by Chico oCllins MD at [facility] Right: Shoulder [employer] [id number] 08/02/2024 [id number] / / [id number] [employer] [id number] Delta Xtend 42mm Shoulder +3mm Standard Cup Humeral Polyethylene Latex Free - [id number] Implanted:Qty: 1 on 12/24/2019 by Chico Collins MD at [facility] Right: Shoulder [employer] [id number] 06/01/2024 [id number] / / [id number] Explanted Type Area Tube Test Technician Device Identifier Shelf Expiration Date Model / Serial / Lot [employer] [id number] [place] 3/32in 9in 2 Trocar Pin Fixation Nonsterile - [id number] Explanted:Qty: 1 on 12/24/2019 by Chico Collins MD at [facility] Right: Shoulder [employer] [id number] S / / Insurance [place] CHO[place]F [place] Advance Directives For more information, please contact: [phone] * Full Code (Latest Code Status on File) Date Activated Date Inactivated Comments 12/24/2019 2:33 PM 12/25/2019 6:44 PM Care Teams Magazine Hand Relationship Specialty Start Date End Date Samm Govea MD [address] [place] [address] PCP - General 12/24/19
[2025-01-06 14:00] LABS: Alanine Aminotransferase 23 U/L (6-50); Albumin Level 4.1 g/dL (3.5-5.1); Alkaline Phosphatase 100 U/L (38-126); Anion Gap 9 mmol/L (4-12); Aspartate Amino Transferase 29 U/L (17-59); Bilirubin,Total 0.5 mg/dL (0.2-1.3); Blood Urea Nitrogen 15 mg/dL (9-20); CRP 1.9 mg/dL (<1.0); Calcium 9.8 mg/dL (8.4-10.2); Carbon Dioxide 29 mmol/L (22-30); Chloride 100 mmol/L (98-107); Estimated CRCL calculation 102 ml/min; Estimated Glomerular Filt Rate > 60; Glucose 361 mg/dL (65-110); Potassium 4.6 mmol/L (3.4-5.0); Sodium 138 mmol/L (137-145); Total Protein 7.9 g/dL (6.3-8.2)
[2025-01-06] MEDS: ceFAZolin 1 GM/NS 50 ML 1 GM/50 ML BAG IVPB (14:18)
[2025-01-06 16:13] LABS: Hemoglobin A1C 11.0 % (<5.7)
[2025-01-06 17:10] VITALS: BP 145/79; PULSE 88; RESP 19; O2SAT 100
== END 2025-01-06 17:11 | disposition home or self-care (01) ==
PROVIDERS: Physician Assistant; Emergency Provider Emergency Medicine
DX: L03.032 Cellulitis of left toe (principal); E11.9 Type 2 diabetes mellitus without complications; I10 Essential (primary) hypertension; T38.3X6A Underdosing of insulin and oral hypoglycemic [antidiabetic] drugs, initial encounter; Z91.120 Patient's intentional underdosing of medication regimen due to financial hardship; Z79.899 Other long term (current) drug therapy
CPT/HCPCS: 36415; 73630; 80053; 83036; 83605; 85025; 85652; 86140; 87040; 87070; 87075; 87181; 87205; 96365; 99284; J0690

== ENCOUNTER 2025-01-16 12:28 | Inpatient (IN) | payer OTHER, SELFPAY ==
--- NOTE | ~2025-01-16 | XR_ITS ---
XR foot LT min 3V Ordering provider: Jeferson Rodriguez MD History: . osteo . Comparison: None. FINDINGS: BONES: No acute fracture or dislocation. JOINT SPACES: Narrowing of the proximal and distal interphalangeal joints. Osteoarthritic changes of the first tarsometatarsal and metatarsophalangeal joints. No tarsal coalition. SOFT TISSUES: Normal. IMPRESSION: No acute osseous abnormality left foot. Polyarticular osteoarthritic changes. Reviewed, dictated and finalized at location A.
--- OUTSIDE RECORDS SUMMARY | 2025-01-16 12:30 | XMS_ITS | Referral Summary ---
Author Organization [facility] Address [address] [place] [address] Care Team Providers Care Thermostat Maker Name Role Phone Samm Govea MD Primary Care Provider [phone] Allergies Active Allergy Reactions Criticality Noted Date Comments Monosodium Glutamate Unknown 12/02/2019 palpitations Medications lisinopriL (PRINIVIL,ZESTR IL) 10 mg tabletIndicatio ns:hypertension Take 10 mg by mouth early childhood specialist before breakfast Active empagliflozin (JARDIANCE) 25 mg tabletIndicatio ns:type 2 diabetes mellitus Take 25 mg by mouth early childhood specialist before breakfast Active vitamin E (AQUASOL E) 200 unit capsuleIndicati ons:supplement Take 200 Units by mouth early childhood specialist before breakfast Active potassium gluconate 500 [...] (12/03/2019): Added automatically from request for surgery [id number] Social History Tobacco Use Types Packs/Day Years Used Date Smoking Tobacco: Never Smokeless Tobacco: Never Alcohol Use Standard Drinks/Week Comments Yes 14 (1 standard drink = 0.6 oz pu re alcohol) Sex and Gender Information Value Date Recorded Sex Assigned at Not on file Legal 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 Gender Identity Not on file Sexual Orientation [...] on file Medical Devices Implanted Type Area Automobile Mechanic Motor Device Identifier Shelf Expiration Date Model / Serial / Lot [employer] [id number] Delta Xtend 27mm Cementless Shoulder Standard Component Glenoid Latex Free - [id number] Implanted:Qty: 1 on 12/24/2019 by Chico Collins MD at [facility] Right: Shoulder [employer] [id number] 08/02/2024 [id number] / / [id number] [employer] [id number] Delta Xtend 4.5mm 48mm Lock Shoulder Glenoid Screw Bone Metaglene - [id number] Implanted:Qty: 1 on 12/24/2019 by Chico Collins MD at [facility] Right: Shoulder [employer] [id number] 07/02/2024 [id number] / / [id number] [employer] [id number] Delta Xtend 4.5mm 42mm Lock Shoulder Glenoid Screw Bone Metaglene - [id number] Implanted:Qty: 1 on 12/24/2019 by Chico Collins MD at [facility] Right: Shoulder [employer] [id number] 08/02/2024 [id number] / / [id number] [employer] [id number] Component Glenoid Delta Xtend +4mm Eccentric Od42mm - [id number] Implanted:Qty: 1 on 12/24/2019 by Chico Collins MD at [facility] Right: Shoulder [employer] [id number] 10/01/2023 [id number] / / [id number] [employer] [id number] Global Unite 12mm 120mm Modular Shoulder Standard Stem Humeral - [id number] Implanted:Qty: 1 on 12/24/2019 by Chico Collins MD at [facility] Right: Shoulder [employer] [id number] 11/30/2028 [id number] / / [id number] [employer] [id number] Delta Xtend Cementless Modular Shoulder Right Epiphysis 155d 1 Latex Free - [id number] Implanted:Qty: 1 on 12/24/2019 by Chico Collins MD at [facility] Right: Shoulder [employer] [id number] 08/02/2024 [id number] / / [id number] [employer] [id number] Delta Xtend 42mm Shoulder +3mm Standard Cup Humeral Polyethylene Latex Free - [id number] Implanted:Qty: 1 on 12/24/2019 by Chico Collins MD at [facility] Right: Shoulder [employer] [id number] 06/01/2024 [id number] / / [id number] Explanted Type Area Automobile Mechanic Motor Device Identifier Shelf Expiration Date Model / Serial / Lot [employer] [id number] Steinmann 3/32in 9in 2 Trocar Pin Fixation Nonsterile - [id number] Explanted:Qty: 1 on 12/24/2019 by Chico Collins MD at [facility] Right: Shoulder [employer] [id number] S / / Insurance [place] Advance Directives For more information, please contact: [phone] * Full Code (Latest Code Status on File) Date Activated Date Inactivated Comments 12/24/2019 2:33 PM 12/25/2019 6:44 PM Care Teams Thermostat Maker Relationship Specialty Start Date End Date Samm Govea MD [address] [place] [address] PCP - General 12/24/19
--- OUTSIDE RECORDS SUMMARY | 2025-01-16 12:30 | XMS_ITS | Clinical Summary ---
Author Organization [facility] Address [facility] [place] [address] Care Team Providers Care Cover Machine Operator Name Role Phone Unavailable Primary Care Provider Unavailabl e Allergies Active Allergy Reactions Criticality Noted Date Comments Atorvastatin Unknown 02/21/2022 Didn't feel well Glipizide Unknown 02/21/2022 Didn't feel well Monosodium Glutamate Unknown 12/02/2019 palpitations Medications Lancets (ONETOUCH ULTRASOFT) lancetsIndicati ons:Type 2 diabetes mellitus with hyperglycemia, with long-term current use of insulin ([facility]) Check blood sugar three times a day before meals. 100 each 1 3 Active Blood Glucose Monitoring Suppl (ONE TOUCH ULTRA 2) w/Device KitIndications: Type 2 diabetes mellitus with hyperglycemia, with long-term current use of insulin ([facility]) Check blood sugar three times a day before meals. 1 kit 3 Active Glucose Blood test stripIndication s:Type 2 diabetes mellitus with hyperglycemia, with long-term current use of insulin ([facility]) Check blood sugar three times a day before meals. 300 strip 1 3 Active meloxicam (MOBIC) 15 MG tabletIndicatio ns:Arthritis TAKE 1 TABLET (15 MG TOTAL) BY MOUTH DAILY. 90 tablet 4 Active insulin degludec (TRESIBA FLEXTOUCH) 100 UNIT/ML Solution Pen-injector injection Inject 20 Units into the skin nightly at bedtime. Active insulin aspart (NOVOLOG FLEXPEN) 100 UNIT/ML injection (PEN) Inject into the skin 3 (three) times daily before meals. < 70 follow hypoglycemia order 70-200 no additional insulin 201-250 4 units 251-300 5 units 301-350 6 units 351-400 8 units > 400 call Active Ascorbic Acid (VITAMIN C) 500 MG Cap Active vitamin E 180 MG (400 UNIT) capsule Take by mouth daily. Active lisinopril (PRINIVIL) 20 MG tabletIndicatio ns:Hypertension , unspecified type Take 1 tablet (20 mg total) by mouth daily. 90 tablet Active Active Problems Problem Noted Date Diagnosed Date Hyperlipidemia, unspecified hyperlipidemia type 09/21/2021 Arthralgia, unspecified joint 09/21/2021 Microalbuminuria 09/21/2021 Erectile dysfunction, unspecified erectile dysfu nction type 09/21/2021 Diabetes mellitus ([facility]) 05/13/2019 Immunizations Immunization Administration Dates Next Due PFIZER COVID-19 (ORIGINAL FO RMULATION, PURPLE CAP) mRNA, LNP-S, PF, 30 MCG/0.3 ML DOSE 04/14/2021,02/16/2021 Family History Medical History Relation Comments Alzheimers Mother Rheumatoid Arthritis Mother Relation Status Comments Mother Social History Tobacco Use Types Packs/Day Years Used Date Smoking Tobacco: Never Smokeless Tobacco: Never Tobacco Cessation:Counseling Given: No Comments:pt does not smoke Alcohol Use Standard Drinks/Week Comments Yes 23.3 (1 standard drink = 0.6 oz pure alcohol) PHQ-2 Answer Date Recorded Patient Health Questionnaire-2 Score 0 08/26/2024 Sex and Gender Information Value Date Recorded Sex Assigned at Male 08/26/2024 12:45 PM FACILITIES LOCATOR Legal Sex Male 11:57 AM CDT Gender Identity Male 08/26/2024 12:45 PM FACILITIES LOCATOR Sexual Orientation Straight 08/26/2024 12 :45 PM FACILITIES LOCATOR Last Filed Vital Signs Vital Sign Reading Time Taken Comments Blood Pressure 122/84 08/26/2024 12:45 PM FACILITIES LOCATOR Pulse 99 08/26/2024 12:45 PM FACILITIES LOCATOR Temperature 36.7 C (98 F) 08/26/2024 12:45 PM FACILITIES LOCATOR Respiratory Rate 20 08/26/2024 12:45 PM FACILITIES LOCATOR Oxygen Saturation 98% 08/26/2024 12:45 PM FACILITIES LOCATOR Inhaled Oxygen Concentration - - Weight 80.7 kg (178 lb) 08/26/2024 12:45 PM FACILITIES LOCATOR Height 172.7 cm (5' 8) 08/26/2024 12:45 PM FACILITIES LOCATOR Body Mass Index 27.06 08/26/2024 12:45 PM FACILITIES LOCATOR Plan of Treatment Health Maintenance Due Date Last Done Comments Colorectal Cancer Screening Colonoscopy (10 Years) 1962 Kidney Health Evaluation 1962 Diabetes: Retinopathy Eye Exam 1980 Hepatitis C 1980 DTaP, Tdap and Td Vaccines (1 - Tdap) 1981 Pneumococcal Vaccine: 50+ Years (1 of 2 - PCV) 1981 Zoster Vaccines (1 of 2) 2012 Lipid Panel 09/06/2022 09/06/2021 RSV Immunization or 60+ Years (1 - Risk 60-74 years 1-dose series) 2022 COVID-19 Vaccine ( - season) 2024 04/14/2021, 02/16/2021 Annual Physical 04/24/2024 04/24/2023, 02/01, 02/08/2021 Hemoglobin A1C 11/03/2024 08/06/2024, 04/03, 02/21/2022, Additional history exists PHQ-2 (Physician Lamar) Completed 08/26/2024 Meningococcal B Vaccine Aged Out No l onger eligible based on patient's age to complete this topic Meningococcal Vaccine Aged Out No moses elva eligible based on patient's age to complete this topic RSV Immunizations Under 20 Months Aged Out No longer eligible based on patient's age to complete this topic Procedures Procedure Name Priority Date/Time Associated Diagnosis Comments OUTSIDE LAB (SCAN ORDER) Routine 08/06/2024 LIPID PANEL Routine 09/06/2021 3:07 PM FACILITIES LOCATOR Screening for lipoid disorders from Last 3 Months or Most Recently Relevant to Health Maintenance Results * OUTSIDE LAB (08/06/2024) HGB A1C 11.6 % [facility] 08/06/2024 [facility] Scanned SCANNING Final Resu lt [facility] * (ABNORMAL) LIPID PANEL (09/06/2021 3:07 PM FACILITIES LOCATOR) CHOLESTEROL 257(H) 100 - 199 mg/dL [facility] 1 TRIGLYCERIDES 132 0 - 149 mg/dL [facility] 1 HDL 74 >39 mg/dL [facility] 1 VLDL CALCULATION 23 5 - 40 mg/dL [facility] 1 LDL (CALCULATED) 160(H) 0 - 99 mg/dL [facility] 1 09/06/2021 3:07 PM FACILITIES LOCATOR 09/06/2021 Narrative [facility] - 09/07/2021 11:07 AM FACILITIES LOCATOR Performed at: 01 - [facility] [address] [id number] Dance Director: Leon Rees PhD, Phone: [phone] us Stephanie Ferrara NP LABORATORY Final Res ult [facility] [address] [place] [address] [facility] 1 from Last 3 Months or Most Recently Relevant to Health Maintenance Insurance [employer]
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
--- OUTSIDE RECORDS SUMMARY | 2025-01-16 12:30 | XMS_ITS | Clinical Summary ---
Author Organization [facility] Address [address] [place] [id number] Care Team Providers Care Fruit Canner Name Role Phone Samm Govea MD Primary Care Provider [phone] Allergies Active Allergy Reactions Criticality Noted Date Comments Monosodium Glutamate Unknown 12/02/2019 palpitations Medications lisinopriL (PRINIVIL,ZESTR [place]) 10 mg tabletIndicatio ns:hypertension Take 10 mg by mouth massage therapy instructor before breakfast Active empagliflozin (JARDIANCE) 25 mg tabletIndicatio ns:type 2 diabetes mellitus Take 25 mg by mouth massage therapy instructor before breakfast Active vitamin E (AQUASOL E) 200 unit capsuleIndicati ons:supplement Take 200 Units by mouth massage therapy instructor before breakfast Active potassium gluconate 500 mg [...] (12/03/2019): Added automatically from request for surgery [id number] Surgical History Surgery Date Site/Laterality Comments NO [...] on file 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 Gender Identity Not on file Sexual Orientation [...] on file Medical Devices Implanted Type Area Laborer [employer] Device Identifier Shelf Expiration Date Model / Serial / Lot Depuy [employer] [id number] Delta Xtend 27mm Cementless Shoulder Standard Component Glenoid Latex Free - [id number] Implanted:Qty: 1 on 12/24/2019 by Chico Collins MD at [facility] Right: Shoulder [employer] [id number] 08/02/2024 [id number] / / [id number] [employer] [id number] Delta Xtend 4.5mm 48mm Lock Shoulder Glenoid Screw Bone Metaglene - [id number] Implanted:Qty: 1 on 12/24/2019 by Chico Collins MD at [facility] Right: Shoulder [employer] [id number] 07/02/2024 [id number] / / [id number] Dep[employer] [id number] Delta Xtend 4.5mm 42mm Lock Shoulder Glenoid Screw Bone Metaglene - [id number] Implanted:Qty: 1 on 12/24/2019 by Chico Collins MD at [facility] Right: Shoulder [employer] [id number] 08/02/2024 [id number] / / [id number] Depuy [employer] [id number] Component Glenoid Delta Xtend +4mm Eccentric Od42mm - [id number] Implanted:Qty: 1 on 12/24/2019 by Chico Collins MD at [facility] Right: Shoulder [employer] [id number] 10/01/2023 [id number] / / [id number] Depuy [employer] [id number] Global Unite 12mm 120mm Modular Shoulder Standard Stem Humeral - [id number] Implanted:Qty: 1 on 12/24/2019 by Chico Collins MD at [facility] Right: Shoulder [employer] [id number] 11/30/2028 [id number] / / [id number] Dep[employer] [id number] Delta Xtend Cementless Modular Shoulder Right Epiphysis 155d 1 Latex Free - [id number] Implanted:Qty: 1 on 12/24/2019 by Chico Collins MD at [facility] Right: Shoulder [employer] [id number] 08/02/2024 [id number] / / [id number] Dep[employer] [id number] Delta Xtend 42mm Shoulder +3mm Standard Cup Humeral Polyethylene Latex Free - [id number] Implanted:Qty: 1 on 12/24/2019 by Chico Collins MD at [facility] Right: Shoulder [employer] [id number] 06/01/2024 [id number] / / [id number] Explanted Type Area Laborer [employer] [place] Device Identifier Shelf Expiration Date Model / Serial / Lot [employer] [id number] Rena 3/32in 9in 2 Trocar Pin Fixation Nonsterile - [id number] Explanted:Qty: 1 on 12/24/2019 by Chico Collins MD at [facility] Right: Shoulder [employer] [id number] S / / Insurance [place] Advance Directives For more information, please contact: [phone] * Full Code (Latest Code Status on File) Date Activated Date Inactivated Comments 12/24/2019 2:33 PM 12/25/2019 6:44 PM Care Teams Fruit Canner Relationship Specialty Start Date End Date Samm Govea MD [address] [place] [address] PCP - General 12/24/19
[2025-01-16 12:35] VITALS: BP 122/110; PULSE 110; RESP 20; TEMP 36.4; O2SAT 99
--- OUTSIDE RECORDS SUMMARY | 2025-01-16 13:10 | XMS_ITS | Clinical Summary ---
Author Organization [facility] Address [facility] [place] [address] Care Team Providers Care Director Of In Service Education Name Role Phone Unavailable Primary Care Provider Unavailabl e Allergies Active Allergy Reactions Criticality Noted Date Comments Atorvastatin Unknown 02/21/2022 Didn't feel well Glipizide Unknown 02/21/2022 Didn't feel well Monosodium Glutamate Unknown 12/02/2019 palpitations Medications Lancets (ONETOUCH ULTRASOFT) lancetsIndicati ons:Type 2 diabetes mellitus with hyperglycemia, with long-term current use of insulin ([facility]) Check blood sugar three times a day before meals. 100 each 1 3 Active Blood Glucose Monitoring Suppl (ONE TOUCH ULTRA 2) w/Device KitIndications: Type 2 diabetes mellitus with hyperglycemia, with long-term current use of insulin ([facility]) Check blood sugar three times a day before meals. 1 kit 3 Active Glucose Blood test stripIndication s:Type 2 diabetes mellitus with hyperglycemia, with long-term current use of insulin ([facility]) Check blood sugar three times a [...] erectile dysfu nction type 09/21/2021 Diabetes mellitus ([facility]) 05/13/2019 Immunizations Immunization Administration Dates Next [...] Sex Assigned at Male 08/26/2024 12:45 PM RESIDENTIAL GAS HEAT TECHNICIAN Legal Sex Male 11:57 AM CDT Gender Identity Male 08/26/2024 12:45 PM RESIDENTIAL GAS HEAT TECHNICIAN Sexual Orientation Straight 08/26/2024 12 :45 PM RESIDENTIAL GAS HEAT TECHNICIAN Last Filed Vital Signs Vital Sign Reading Time Taken Comments Blood Pressure 122/84 08/26/2024 12:45 PM RESIDENTIAL GAS HEAT TECHNICIAN Pulse 99 08/26/2024 12:45 PM RESIDENTIAL GAS HEAT TECHNICIAN Temperature 36.7 C (98 F) 08/26/2024 12:45 PM RESIDENTIAL GAS HEAT TECHNICIAN Respiratory Rate 20 08/26/2024 12:45 PM RESIDENTIAL GAS HEAT TECHNICIAN Oxygen Saturation 98% 08/26/2024 12:45 PM RESIDENTIAL GAS HEAT TECHNICIAN Inhaled Oxygen Concentration - - Weight 80.7 kg (178 lb) 08/26/2024 12:45 PM RESIDENTIAL GAS HEAT TECHNICIAN Height 172.7 cm (5' 8) 08/26/2024 12:45 PM RESIDENTIAL GAS HEAT TECHNICIAN Body Mass Index 27.06 08/26/2024 12:45 PM RESIDENTIAL GAS HEAT TECHNICIAN Plan of Treatment Health Maintenance Due Date [...] 04/03, 02/21/2022, Additional history exists PHQ-2 (Physician Mobile) Completed 08/26/2024 Meningococcal B Vaccine Aged Out [...] 08/06/2024 LIPID PANEL Routine 09/06/2021 3:07 PM RESIDENTIAL GAS HEAT TECHNICIAN Screening for lipoid disorders from Last 3 Months or Most Recently Relevant to Health Maintenance Results * OUTSIDE LAB (08/06/2024) HGB A1C 11.6 % [facility] 08/06/2024 [facility] Scanned SCANNING Final Resu lt [facility] * (ABNORMAL) LIPID PANEL (09/06/2021 3:07 PM RESIDENTIAL GAS HEAT TECHNICIAN) CHOLESTEROL 257(H) 100 - 199 mg/dL [facility] 1 TRIGLYCERIDES 132 0 - 149 mg/dL [facility] 1 HDL 74 >39 mg/dL [facility] 1 VLDL CALCULATION 23 5 - 40 mg/dL [facility] 1 LDL (CALCULATED) 160(H) 0 - 99 mg/dL [facility] 1 09/06/2021 3:07 PM RESIDENTIAL GAS HEAT TECHNICIAN 09/06/2021 Narrative [facility] - 09/07/2021 11:07 AM RESIDENTIAL GAS HEAT TECHNICIAN Performed at: 01 - [facility] [address] [id number] Conveyor System Dispatcher: Leon Rees PhD, Phone: [phone] us Stephanie Ferrara NP LABORATORY Final Res ult [facility] [address] [place] [address] [facility] 1 from Last 3 Months or Most Recently Relevant to Health Maintenance Insurance [employer]
[2025-01-16 13:11] LABS: Hematocrit 42.4 % (42.0-52.0); Hemoglobin 13.9 g/dL (14.0-18.0); Immature Granulocyte Percent A 0.3 % (0-0.5); Lymphocytes Absolute Auto 0.62 K/mm3 (0.9-3.2); Mean Corpuscular HGB Conc 32.8 g/dl (32-36); Mean Corpuscular Hemoglobin 31.4 pg (26-34); Mean Corpuscular Volume 95.7 fl (80-100); Nucleated Red Blood Cells Absolute Auto 0.000 K/mm3 (0.0-0.012); Nucleated Red Blood Cells Perc 0.0 % (0.0-0.2); Platelet Count Result 179 k/mm3 (150-375); Red Blood Count 4.43 M/mm3 (4.6-6.20); White Blood Count 6.9 K/mm3 (4.5-10.0)
[2025-01-16] MEDS: MORPHINE SULFATE (*CRX) 4 MG/ML INJ IV PUSH (13:22)
[2025-01-16] MEDS: ONDANSETRON INJ 4 MG/2 ML VIAL IV PUSH (13:22)
[2025-01-16] MEDS: SODIUM CHLORIDE 0.9% IV 1,000 ML 150 ML IV CONT (13:22)
[2025-01-16 13:31] VITALS: BP 111/75
[2025-01-16 13:41] LABS: Alanine Aminotransferase 22 U/L (6-50); Albumin Level 4.2 g/dL (3.5-5.1); Alkaline Phosphatase 110 U/L (38-126); Anion Gap 9 mmol/L (4-12); Aspartate Amino Transferase 29 U/L (17-59); Bilirubin,Total 0.9 mg/dL (0.2-1.3); Blood Urea Nitrogen 21 mg/dL (9-20); CRP 2.3 mg/dL (<1.0); Calcium 9.4 mg/dL (8.4-10.2); Carbon Dioxide 25 mmol/L (22-30); Chloride 101 mmol/L (98-107); Estimated CRCL calculation 79 ml/min; Estimated Glomerular Filt Rate > 60; Glucose 343 mg/dL (65-110); Potassium 4.6 mmol/L (3.4-5.0); Sodium 135 mmol/L (137-145); Total Protein 7.7 g/dL (6.3-8.2)
[2025-01-16] MEDS: CEFEPIME 2 GM in SODIUM CHLORIDE 0.9% IV 50 ML 100 ML IVPB (14:00)
[2025-01-16] MEDS: INSULIN ASPART (*BKC) 100 UNITS/ML 6 UNITS SUB-Q ×2 (14:04→18:05)
--- NOTE | 2025-01-16 14:30 | P.HP_ITS ---
H&P: HPI History of Present Illness Date/Time: 01/16/25 14:30 Chief Complaint: Nonhealing wound Narrative: 64-year-old male history of diabetes, hypertension presents the hospital with a nonhealing wound. Patient complains of pain swelling and redness in his left 3rd toe he states that he was on oral antibiotics but it did not help. He states that it is getting worse. Patient states that he has been seeking care for this however the providers have not wanted to continue to see him. Ex states that the patient is very noncompliant with his providers recommendations. Patient does not take insulin for his diabetes or perform Accu-Cheks at home. She states that he is also a daily drinker of whiskey and beer. Patient states that he only drinks 6 beers a week. Lab work shows elevated glucose at 3:43 a.m., hemoglobin A1c of 11, C-reactive protein 2.3, x-ray shows no acute process. Patient will be admitted for IV antibiotics Review of Systems 2 Review of Systems: 12 systems were reviewed and are negativ e except for as per HPI. [facility] Past Medical History Medical History (Updated 01/16/25 @ 15:08 by Steph Gonzalez, GHULAM) ETOH abuse Cellulitis Type 2 diabetes mellitus Hypertension Surgical History Surgical History History of shoulder surgery Family History Family History (Updated 01/16/25 @ 17:30 by Darius Malcolm RN CLIFF) Mother Family history non-contributory Alzheimer dementia Father Family history non-contributory Aneurysm Grandparent Family history non-contributory Social History Social History Social History: Surrogate medical decision maker: Kate Shah ([phone]). Code status: Full code. Smoking status: Never smoker Alcohol intake: current Drinks per week: 24 Alcohol use details: on average 3 beers a night, sometimes less Substance use: never Do You Feel Safe in your Home?: Yes Lack of Transportation: No Lack of Food: Never True Current Housing: I Have Housing Concerned About Future Housing: No Difficulty Paying Gas/Electric Bills: No Difficulty Paying for Meds: No Currently Unemployed: No Education: Decline to Answer Difficulty w/ Childcare or Family Care: No Spiritual care concerns: No Meds Home Medications and Allergies Home Medications ?Medication ?Instructions ?Recorded ?Confirmed ?Type meloxicam 15 mg tablet 15 mg PO DAILY 08/03/24 08/05/24 History ascorbic acid (vitamin C) 500 mg 500 mg PO DAILY 08/05/24 08/05/24 History tablet (Vitamin C) vitamin E (dl, acetate) 180 mg 180 mg PO DAILY 08/05/24 08/05/24 History (400 unit) capsule amoxicillin 875 mg-potassium 1 tablet PO Q12H 5 days #10 tabs 08/09/24 Rx clavulanate 125 mg tablet blood sugar diagnostic (True #100 ea 08/09/24 Rx Metrix Glucose Test Strip) blood-glucose meter (True Metrix #1 ea 08/09/24 Rx Glucose Meter) dextrose 40 % oral gel (Glutose-15) 15 g PO PRN PRN Hypoglycemia 08/09/24 Rx #112.5 grams hydrocodone 5 mg-acetaminophen 325 1 tablet PO Q6H PRN Pain Rated 08/09/24 Rx mg tablet 4-10 #12 tabs insulin aspart U-100 100 unit/mL See Protocol subcut USEASDIRECTD 08/09/24 Rx (3 mL) subcutaneous pen (Novolog #15 mL FlexPen U-100 Insulin aspart) insulin degludec 100 unit/mL (3 20 unit (0.2 mL) subcut HS #15 mL 08/09/24 Rx mL) subcutaneous pen (Tresiba FlexTouch U-100 insulin) lancing device (lancing device #1 ea 08/09/24 Rx with lancets) linezolid 600 mg tablet 600 mg PO Q12HR #14 tabs 08/09/24 Rx lisinopril 20 mg tablet 20 mg PO DAILY #30 tabs 08/09/24 Rx pen needle, diabetic 32 gauge x #100 ea 08/09/24 Rx 1/4 (BD Ultra-Fine Micro Pen Needle) clindamycin HCl 300 mg capsule 300 mg PO Q6H #40 caps 01/06/25 Rx (Cleocin HCl) Allergies Allergy/AdvReac Type Severity Reaction Status Date / Time monosodium glutamate Allergy Unknown Unknown Verified 01/06/25 13:21 Vital Signs Vital Signs - 24 hr 01/16/25 12:35 01/16/25 13:31 Temperature 97.6 F Pulse Rate 110 H Respiratory Rate 20 Blood Pressure 122/110 H 111/75 Pulse Oximetry 99 Oxygen Delivery Room Air Exam Narrative: General: well appearing, appears stated age. HEENT: normocephalic, atraumatic. Mucous membranes moist. EOMI, PERRLA, bilateral sclera anicteric, no conjunctival injection. Neck supple without JVD, lymphadenopathy, or bruit. Respiratory: clear to ascultation bilaterally. No rales/rhonic/wheezes. Cardiovascular: Regular rate and rhythm, normal S1-S2 upon ascultation. No murmurs, rubs, or clicks. PMI is nondisplaced, capillary refill less than 3 second. Abdomen: Soft, round, no pulsatile masses, nondistended and nontender. No rebound, no guarding. No CVA tenderness, no hepatosplenomegaly. Bowel sounds present to all four quadrants. No high pitch or tinkling sounds, resonant to percussion. Extremities: No cyanosis, clubbing, or edema present. Pulses are palpable 2/2. Active ROM to all four extremities. Left 3rd toe with erythema and swelling and open sore at the bottom. Neuro: Alert and orientated x 4. PERRLA. Cranial nerves 2-12 intact without focal deficit. Skin: Warm, dry, and intact, without rash, erythema, or lesion. Psych: pleasant, cooperative, normal speech, normal affect, no hallucinations, no dysarthia H&P: Results Labs Labs: Short CBC 01/16/25 Range/Units 13:05 WBC 6.9 (4.5-10.0) K/mm3 Hgb 13.9 L (14.0-18.0) g/dL Hct 42.4 (42.0-52.0) % Plt Count 179 (150-375) k/mm3 BMP 01/16/25 13:05 Sodium 135 L Potassium 4.6 Chloride 101 Carbon Dioxide 25 BUN 21 H Creatinine 0.82 Glucose 343 H Calcium 9.4 Liver Function 01/16/25 Range/Units 13:05 Total Bilirubin 0.9 (0.2-1.3) mg/dL AST 29 (17-59) U/L ALT 22 (6-50) U/L Alkaline Phosphatase 110 (38-126) U/L Albumin 4.2 (3.5-5.1) g/dL Assessment and Plan Assessment and plan (1) Cellulitis: Code(s): L03.90 - Cellulitis, unspecified Status: Acute Assessment and Plan: No signs of osteomyelitis on x-ray IVF Cefepime, Flagyl and vancomycin Wound care consulted L (2) Type 2 diabetes mellitus with hyperglycemia: Code(s): E11.65 - Type 2 diabetes mellitus with hyperglycemia Status: Acute Assessment and Plan: Hemoglobin A1c 11 Lantus, SSI and bolus Accu-Cheks a.c. software educator Carb consist diet (3) Hypertension: Code(s): I10 - Essential (primary) hypertension Status: Chronic (4) ETOH abuse: Code(s): F10.10 - Alcohol abuse, uncomplicated Status: Acute Assessment and Plan: [facility] protocol Telemetry monitoring Plan Waiting on nursing to do the home medication rec Quality VTE Prophylaxis VTE prophylaxis: mechanical ordered and pharmacologic ordered Hospitalist MIPS Advance Care Plan I have confirmed that the patient's Advanced Care Plan is present, code status is documented, or surrogate decision maker is listed in patient medical record.: Yes Medication Reconciliation I have utilized all available resources to obtain, update and review the patients current medications (includes all prescriptions, OTC, herbals, cannabis, and nutritional supplements).: Yes
[2025-01-16] MEDS: metroNIDAZOLE 500 MG/ISO 100ML 500 MG/100 ML BAG 100 MG IVPB ×2 (14:36→20:57)
--- NOTE | 2025-01-16 14:47 | ED.SKABFB ---
HPI - Skin/Abscess/Foreign Bdy General Chief complaint: Skin/Abscess/Foreign Body Stated complaint: cellulitis on the L foot Time Seen by Provider: 01/16/25 12:33 Source: patient Mode of arrival: ambulatory Limitations: no limitations History of Present Illness HPI narrative: 64-year-old with a history of type 2 diabetes, hypertension here with a complains of pain, swelling, redness to his 3rd left toe for past week or more. Patient was seen in the ER for the same was given oral antibiotic. Patient states that swelling and redness has progressively getting worse and is not healing. He also mentions that he has no primary doctor as his PMD fired him as he was noncompliant with his visits. He denies any fever or chills. MD complaint: other (Ulcer on the left toe) Onset (ago): day(s) Location: L foot Severity: moderate Quality: aching Pain Consistency: constant Relieving factors: none Exacerbating factors: none Associated symptoms: denies other symptoms Treatments prior to arrival: none and antibiotic Related Data Home Medications ?Medication ?Instructions ?Recorded ?Confirmed ?Last Taken ?Type meloxicam 15 mg tablet 15 mg PO DAILY 08/03/24 08/05/24 08/05/24 History ascorbic acid (vitamin C) 500 mg 500 mg PO DAILY 08/05/24 08/05/24 08/05/24 History tablet (Vitamin C) vitamin E (dl, acetate) 180 mg 180 mg PO DAILY 08/05/24 08/05/24 08/05/24 History (400 unit) capsule Allergies Allergy/AdvReac Type Severity Reaction Status Date / Time monosodium glutamate Allergy Unknown Unknown Verified 01/06/25 13:21 Review of Systems Review of Systems: All systems reviewed & are unremarkable except as noted in HPI and below Constitutional: Constitutional: Reports no additional constitutional complaints Eyes: Eyes: Reports no additional eye complaints ENT: Reports system reviewed and no additional complaints, except as documented Cardiovascular: Cardiovascular: Reports no additional cardiovascular complaints Respiratory: Respiratory: Reports no additional respiratory complaints Gastrointestinal: Gastrointestinal: Reports no additional gastrointestinal complaints Musculoskeletal: Musculoskeletal: Reports as per HPI Integumentary/Breasts: Skin/Breast: Reports as per HPI Neurologic: Reports system reviewed and no additional complaints, except as documented Psychiatric: Psychiatric: Reports no additional psychiatric complaints [facility] Past Medical History Medical History Cellulitis Type 2 diabetes mellitus Hypertension Surgical History Surgical History History of shoulder surgery Family History Family History Other Family history non-contributory Social History Social History Social History: Surrogate medical decision maker: Kate Shah ([phone]). Code status: Full code. Smoking status: Never smoker Alcohol intake: current Drinks per week: 24 Alcohol use details: on average 3 beers a night, sometimes less Substance use type: marijuana Do You Feel Safe in your Home?: Yes Lack of Transportation: No Lack of Food: Never True Current Housing: I Have Housing Concerned About Future Housing: No Difficulty Paying Gas/Electric Bills: No Difficulty Paying for Meds: No Currently Unemployed: No Education: Decline to Answer Difficulty w/ Childcare or Family Care: No Spiritual care concerns: No Exam Narrative: GENERAL: Well-appearing, well-nourished, and in no acute distress. HEAD: Normocephalic, atraumatic. EYES: PERRLA and EOMI. ENT: Nares clear, Mucous membranes moist. NECK: Supple. CHEST: Clear to auscultation. No respiratory distress. HEART: Regular rate and rhythm. No murmur heard. Normal peripheral pulses. ABDOMEN: Soft, nontender, nondistended, normal active bowel sounds. EXTREMITIES: Normal range of motion. No edema. Examination of the left foot 3rd toe is inflamed, red, tender a small ulcer present on the plantar aspect. No drainage SKIN: Warm, dry, no rash. NEURO: No focal deficits. Alert and oriented x3. PSYCH: Normal mood and affect. Course Course Emergency Course: Notified patient about the lab work, x-ray findings. Agreeable with admission. Discussed with the hospitalist will accept the patient is start him on cefepime, vanc and Flagyl. Vital Signs Vital signs: Vital Signs Temperature 36.4 C 01/16/25 12:35 Pulse Rate 110 H 01/16/25 12:35 Respiratory Rate 20 01/16/25 12:35 Blood Pressure 122/110 H 01/16/25 12:35 Pulse Oximetry 99 01/16/25 12:35 Oxygen Delivery Room Air 01/16/25 12:35 Temperature 36.4 C 01/16/25 12:35 Pulse Rate 110 H 01/16/25 12:35 Respiratory Rate 20 01/16/25 12:35 Blood Pressure 111/75 01/16/25 13:31 Pulse Oximetry 99 01/16/25 12:35 Oxygen Delivery Room Air 01/16/25 12:35 MDM - Skin/Abscess/Foreign Bdy Lab Data 01/16/25 13:05 01/16/25 13:05 Labs: Lab Results 01/16/25 01/16/25 01/16/25 Range/Units 13:05 13:45 14:05 WBC 6.9 (4.5-10.0) K/mm3 RBC 4.43 L (4.6-6.20) M/mm3 Hgb 13.9 L (14.0-18.0) g/dL Hct 42.4 (42.0-52.0) % MCV 95.7 (80-100) fl MCH 31.4 (26-34) pg MCHC 32.8 (32-36) g/dl RDW 12.2 (11.5-14.5) % Plt Count 179 (150-375) k/mm3 MPV 9.6 (7.4-10.4) fl Immature Gran % (Auto) 0.3 (0-0.5) % Neut % (Auto) 82.6 H (45.5-73.1) % Lymph % (Auto) 9.0 L (18.3-44.2) % Davidson % (Auto) 6.5 (2.6-8.5) % Eos % (Auto) 1.2 (0-4.4) % Baso % (Auto) 0.4 (0.2-1.2) % Lymph # (Auto) 0.62 L (0.9-3.2) K/mm3 Davidson # (Auto) 0.5 (0.1-0.6) K/mm3 Eos # (Auto) 0.1 (0-0.3) K/mm3 Baso # (Auto) 0.0 (0.0-0.1) K/mm3 Abs Immat Gran (auto) 0.02 (0.00-0.031) K/mm3 Absolute Neuts (auto) 5.7 (1.3-6.7) K/mm3 Absolute Nucleated RBC 0.000 (0.0-0.012) K/mm3 Nucleated RBC % 0.0 (0.0-0.2) % Sodium 135 L (137-145) mmol/L Potassium 4.6 (3.4-5.0) mmol/L Chloride 101 (98-107) mmol/L Carbon Dioxide 25 (22-30) mmol/L Anion Gap 9 (4-12) mmol/L BUN 21 H (9-20) mg/dL Creatinine 0.82 (0.7-1.3) mg/dL Estim Creat Clear Calc 79 ml/min Estimated GFR > 60 (59 - ) Glucose 343 H (65-110) mg/dL POC Capillary Glucose 324 H (65-105) mg/dl Lactic Acid 1.5 (0.7-2.0) mmol/L Calcium 9.4 (8.4-10.2) mg/dL Total Bilirubin 0.9 (0.2-1.3) mg/dL AST 29 (17-59) U/L ALT 22 (6-50) U/L Alkaline Phosphatase 110 (38-126) U/L C-Reactive Protein 2.3 H (<1.0) mg/dL Total Protein 7.7 (6.3-8.2) g/dL Albumin 4.2 (3.5-5.1) g/dL Discharge Plan Discharge Clinical Impression: Diabetic foot ulcer, Hyperglycemia due to type 2 diabetes mellitus Patient Disposition: Still a Patient Condition: Stable Patient Language: Greenlandic Prescriptions: No Action meloxicam 15 mg tablet 15 mg PO DAILY ascorbic acid (vitamin C) [Vitamin C] 500 mg tablet 500 mg PO DAILY vitamin E (dl, acetate) 180 mg (400 unit) capsule 180 mg PO DAILY dextrose [Glutose-15] 40 % Gel 15 g PO PRN PRN (Reason: Hypoglycemia) Qty: 112.5 0RF Rx Instructions: Use if glucose is less than 70 hydrocodone-acetaminophen 5-325 mg Tablet 1 tablet PO Q6H PRN (Reason: Pain Rated 4-10) Qty: 12 0RF lisinopril 20 mg Tablet 20 mg PO DAILY Qty: 30 0RF linezolid 600 mg Tablet 600 mg PO Q12HR Qty: 14 0RF insulin degludec [Tresiba FlexTouch U-100] 100 unit/mL (3 mL) insulin pen 20 unit subcut HS Qty: 15 0RF insulin aspart U-100 [Novolog FlexPen U-100 Insulin] 100 unit/mL (3 mL) insulin pen See Protocol subcut USEASDIRECTD Qty: 15 0RF Protocol: Insulin Corrective High-Dose Condition: glucose < 70 mg/dl Dose/Route: Follow hypoglycemia order Condition: glucose 70-200 mg/dl Dose/Route: No additional insulin Condition: glucose 201-250 mg/dl Dose/Route: 4 units sub-Q Condition: glucose 251-300 mg/dl Dose/Route: 5 units sub-Q Condition: glucose 301-350 mg/dl Dose/Route: 6 units sub-Q Condition: glucose 351-400 mg/dl Dose/Route: 8 units sub-Q Condition: glucose > 400 mg/dl Dose/Route: Call MD Protocol Text: *No Correction Dose at Bedtime* (DME) blood-glucose meter [True Metrix Glucose Meter] Misc See Rx Instructions .Route Qty: 1 0RF Rx Instructions: As directed (DME) True Metrix Glucose Test Strip Strip See Rx Instructions .Route Qty: 100 3RF Rx Instructions: As directed (DME) lancing device [lancing device with lancets] Misc See Rx Instructions .Route Qty: 1 0RF Rx Instructions: As directed (DME) pen needle, diabetic [BD Ultra-Fine Micro Pen Needle] 32 gauge x 1/4 needle 1 ea miscellaneous QID Qty: 100 3RF amoxicillin-pot clavulanate 875-125 mg tablet 1 tablet PO Q12H 5 Days Qty: 10 0RF clindamycin HCl [Cleocin HCl] 300 mg capsule 300 mg PO Q6H Qty: 40 0RF Follow-up/Referrals: PHYSICIAN,PRIMER WATERPROOFING MACHINE OPERATOR [Primary Care Provider] - Time of Disposition: 14:49
[2025-01-16 15:18] VITALS: BP 128/92; PULSE 88; RESP 18; O2SAT 99
[2025-01-16] MEDS: VANCOMYCIN 2,000 MG/NS 500 ML 2,000 MG/500 ML BAG 250 MG IVPB (15:48)
[2025-01-16 17:00] VITALS: BMI 27.6
--- NOTE | 2025-01-16 17:35 | ADMGEN ---
This patient, Leon Shah, was admitted to 3 [facility] Surg Room 301-01. Patient/family oriented to hospital policies and general routines including ID bracelet, bed and alarms, visiting hours, pain management, procedures, bathroom and other care routines, personal items, smoking policy, room service/diet, and visiting hours. Information on how to activate the Rapid Response Team has been discussed. Patient/Family are encouraged to report perceived risks to care and to ask questions if they do not understand what they are told or what they should do. received report from keyanna.
[2025-01-16 20:00] VITALS: PULSE 88; RESP 16; O2SAT 97
[2025-01-16] MEDS: THIAMINE HCL INJ 100 MG, FOLIC ACID INJ 1 MG, MAGNESIUM SULFATE INJ 1 GM, MULTIVITAMINS... 125 MG IV CONT (20:41)
[2025-01-16] MEDS: INSULIN GLARGINE (*BKC) 100 UNITS/ML 17 UNITS SUB-Q (20:42)
[2025-01-16] MEDS: LORazepam (*CRX) 1 MG TABLET 2 MG PO (20:43)
[2025-01-16] MEDS: INSULIN ASPART (*BKC) 100 UNITS/ML SUB-Q (20:51)
[2025-01-16] MEDS: SODIUM CHLORIDE 0.9% IV 1,000 ML 75 ML IV CONT (20:57)
[2025-01-16 21:10] VITALS: O2SAT 97
[2025-01-16 21:13] VITALS: BP 119/81; PULSE 88; RESP 16; TEMP 36.4; O2SAT 97
[2025-01-17] MEDS: CEFEPIME 2 GM in SODIUM CHLORIDE 0.9% IV 50 ML 100 ML IVPB ×2 (02:01→11:58)
[2025-01-17] MEDS: LORazepam (*CRX) 1 MG TABLET 2 MG PO ×4 (02:01→20:18)
[2025-01-17 05:04] VITALS: BP 123/75; PULSE 76; RESP 16; TEMP 36.7; O2SAT 98
[2025-01-17] MEDS: metroNIDAZOLE 500 MG/ISO 100ML 500 MG/100 ML BAG 100 MG IVPB ×3 (05:21→23:07)
[2025-01-17 06:03] LABS: Hematocrit 37.0 % (42.0-52.0); Hemoglobin 12.2 g/dL (14.0-18.0); Immature Granulocyte Percent A 1.0 % (0-0.5); Lymphocytes Absolute Auto 0.95 K/mm3 (0.9-3.2); Mean Corpuscular HGB Conc 33.0 g/dl (32-36); Mean Corpuscular Hemoglobin 31.5 pg (26-34); Mean Corpuscular Volume 95.6 fl (80-100); Nucleated Red Blood Cells Absolute Auto 0.000 K/mm3 (0.0-0.012); Nucleated Red Blood Cells Perc 0.0 % (0.0-0.2); Platelet Count Result 160 k/mm3 (150-375); Red Blood Count 3.87 M/mm3 (4.6-6.20); White Blood Count 3.9 K/mm3 (4.5-10.0)
[2025-01-17 06:23] LABS: Anion Gap 7 mmol/L (4-12); Blood Urea Nitrogen 16 mg/dL (9-20); Calcium 8.4 mg/dL (8.4-10.2); Carbon Dioxide 24 mmol/L (22-30); Chloride 104 mmol/L (98-107); Estimated CRCL calculation 110 ml/min; Estimated Glomerular Filt Rate > 60; Glucose 328 mg/dL (65-110); Potassium 4.2 mmol/L (3.4-5.0); Sodium 135 mmol/L (137-145)
[2025-01-17] MEDS: INSULIN ASPART (*BKC) 100 UNITS/ML 6 UNITS SUB-Q ×3 (07:56→17:28)
[2025-01-17] MEDS: ENOXAPARIN 40 MG/0.4 ML SYRINGE SUB-Q (07:57)
[2025-01-17] MEDS: DOCUSATE SODIUM 100 MG CAPSULE PO (07:58)
[2025-01-17] MEDS: THIAMINE HCL 200 MG/2 ML VIAL 100 MG IV PUSH (07:59)
--- NOTE | 2025-01-17 08:31 | PM.IMPN ---
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 01/17 will increase lantus to 20 units add SS moderate with meals monitor closely and adjust as needed noted a regular pepsi at a bedside and chocolote chip cookie in bed with pt- pt states he doensot know how it got there- they keep bringing it to me - diet is carb consistent discussed with pt that he needs to adhere to diet (3) Hypertension: Code(s): I10 - Essential (primary) hypertension Status: Chronic (4) ETOH abuse: Code(s): F10.10 - Alcohol abuse, uncomplicated Status: Acute Assessment and Plan: [facility] protocol Telemetry monitoring (5) Medical non-compliance: Code(s): Z91.199 - Patient's noncompliance with other medical treatment and regimen due to unspecified reason Status: Acute Assessment and Plan: discussed in great details pt states that he ran out of meds and his PCP would not refill them -last time he was in the hospital, RX was sent for BS monitor and diabetic medication but pt still not able to obtain it non compliance with diet-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 Patient complains of pain swelling and redness in his left 3rd toe he states that he was on oral antibiotics but it did not help. He states that it is getting worse. Patient states that he has been seeking care for this however the providers have not wanted to continue to see him. Ex states that the patient is very noncompliant with his providers recommendations. Patient does not take insulin for his diabetes or perform Accu-Cheks at home. She states that he is also a daily drinker of whiskey and beer. Patient states that he only drinks 6 beers a week. Lab work shows elevated glucose at 3:43 a.m., hemoglobin A1c of 11, C-reactive protein 2.3, x-ray shows no acute process. Patient will be admitted for IV antibiotics. 01/17 - pt is seen and examined. Noted that he was hospitalized with periorbital cellulitis in august and his hga1c was 11.6. Issues with noncompliance-pt ran out of medication, insulin and was not checking his BS at all. Reddens to lt middle toe started around december and never got better. He completed oral antibiotics bit he is not sure which ones. Review of Systems Review of Systems: 12 systems were reviewed and are negative except for as per HPI. Exam Narrative: General: well appearing, appears stated age. HEENT: normocephalic, atraumatic. Mucous membranes moist. EOMI, PERRLA, bilateral sclera anicteric, no conjunctival injection. Neck supple without JVD, lymphadenopathy, or bruit. Respiratory: clear to ascultation bilaterally. No rales/rhonic/wheezes. Cardiovascular: Regular rate and rhythm, normal S1-S2 upon ascultation. No murmurs, rubs, or clicks. PMI is nondisplaced, capillary refill less than 3 second. Abdomen: Soft, round, no pulsatile masses, nondistended and nontender. No rebound, no guarding. No CVA tenderness, no hepatosplenomegaly. Bowel sounds present to all four quadrants. No high pitch or tinkling sounds, resonant to percussion. Extremities: No cyanosis, clubbing, or edema present. Pulses are palpable 2/2. Active ROM to all four extremities. Left 3rd toe with erythema and swelling and open sore at the bottom. Neuro: Alert and orientated x 4. PERRLA. Cranial nerves 2-12 intact without focal deficit. Skin: Warm, dry, and intact, without rash, erythema, or lesion. Psych: pleasant, cooperative, normal speech, normal affect, no hallucinations, no dysarthia Objective Data Vital Signs Vital Signs: Vital Signs - 24 hr 01/16/25 12:35 01/16/25 13:31 01/16/25 15:18 Temperature 97.6 F Pulse Rate 110 H 88 Respiratory Rate 20 18 Blood Pressure 122/110 H 111/75 128/92 H Pulse Oximetry 99 99 Oxygen Delivery Room Air 01/16/25 17:35 01/16/25 20:00 01/16/25 21:10 Temperature Pulse Rate 88 Respiratory Rate 16 Blood Pressure Pulse Oximetry 97 97 Oxygen Delivery Room Air Room Air Room Air 01/16/25 21:13 01/17/25 05:04 Temperature 97.5 F L 98.0 F Pulse Rate 88 76 Respiratory Rate 16 16 Blood Pressure 119/81 123/75 Pulse Oximetry 97 98 Oxygen Delivery Intake/Output Intake/Output: Intake & Output 01/14/25 01/15/25 01/16/25 01/17/25 23:59 23:59 23:59 23:59 Intake Total 490 350 Output Total 300 300 Balance 190 50 Meds/Results Medications: Active Medications Generic Name Dose Route Start Last Admin Trade Name Freq PRN Reason Stop Dose Admin Acetaminophen 650 mg 01/16/25 14:59 Acetaminophen 325 Mg Tablet PO Q4H PRN Mild Pain (1-3) or Fever Hydrocodone Bitart/Acetaminophen 1 tab 01/16/25 14:59 Hydrocodone/Acetaminophen (*Crx) 5-325 Mg Tablet PO Q4H PRN Pain Rated 4-6 Amlodipine Besylate 5 mg 01/16/25 13:15 01/17/25 07:58 Amlodipine Besylate 5 Mg Tablet PO 5 mg DAILY MOE Administration Dextrose 12.5 gm 01/16/25 15:10 Dextrose 50% 25 Gm/50 Ml Syringe IV PUSH PRN PRN Hypoglycemia Protocol Docusate Sodium 100 mg 01/16/25 17:00 01/17/25 07:58 Docusate Sodium 100 Mg Capsule PO 100 mg BID MOE Administration Enoxaparin Sodium 40 mg 01/17/25 09:00 01/17/25 07:57 Enoxaparin 40 Mg/0.4 Ml Syringe SUB-Q 40 mg DAILY MOE Administration Glucagon 1 mg 01/16/25 15:10 Glucagon For Inj 1 Mg Vial IM PRN PRN Hypoglycemia Protocol Glucose 15 gm 01/16/25 14:59 Glucose Oral Gel 15 Gm Of Glucse In 37.5 Gm Tube PO PRN PRN Hypoglycemia Protocol Glucose 15 gm 01/16/25 15:10 Glucose Oral Gel 15 Gm Of Glucse In 37.5 Gm Tube PO PRN PRN Hypoglycemia Protocol Sodium Chloride 1,000 mls @ 75 mls/hr 01/16/25 15:00 01/17/25 03:25 Normal Saline Iv IV CONT Not Given .[id number] MOE Cefepime HCl 2 gm/ Sodium 50 mls @ 100 mls/hr 01/17/25 01:00 01/17/25 02:01 Chloride IVPB 100 mls/hr Q12H MOE Administration Metronidazole 500 mg in 100 mls @ 100 mls/hr 01/16/25 22:00 01/17/25 05:21 Flagyl 500 Mg/Iso Soln 100 Ml IVPB 100 mls/hr Q8H MOE Administration Dextrose 1,000 mls @ 100 mls/hr 01/16/25 15:10 Dextrose 5% 1,000 Ml IVPB PRN PRN Hypoglycemia Protocol Vancomycin HCl 1,500 mg in 500 mls @ 250 mls/hr 01/17/25 08:00 Vancomycin 1,500 Mg/Ns 500 Ml IVPB Q12H [facility] Insulin Aspart 6 units 01/16/25 13:55 01/17/25 07:56 Insulin Aspart (*Bkc) 100 Units/Ml 0.067 units/kg (6 units) 6 units SUB-Q Administration TIDWM [facility] Insulin Aspart 1 - 3 units 01/16/25 21:00 01/16/25 20:51 Insulin Aspart (*Bkc) 100 Units/Ml SUB-Q 1 units HS [facility] Administration Protocol Insulin Glargine 17 units 01/16/25 21:00 01/16/25 20:42 Insulin Glargine (*Bkc) 100 Units/Ml 0.2 units/kg (17 units) 17 units SUB-Q Administration [facility] Lorazepam 2 mg 01/16/25 21:00 01/17/25 07:58 Lorazepam (*Crx) 1 Mg Tablet PO 2 mg Q4HR MOE Administration Ondansetron HCl 4 mg 01/16/25 14:59 Ondansetron Inj 4 Mg/2 Ml Vial IV PUSH Q4H PRN Nausea Thiamine HCl 100 mg 01/17/25 09:00 01/17/25 07:59 Thiamine Hcl 200 Mg/2 Ml Vial IV PUSH 100 mg DAILY MOE Administration Radiology Results: ITS Impressions Foot X-Ray 01/16/25 13:26 IMPRESSION: No acute osseous abnormality left foot. Polyarticular osteoarthritic changes. Labs Labs: Laboratory Results - last 24 hr 01/16/25 01/16/25 01/16/25 13:05 13:45 14:05 WBC 6.9 RBC 4.43 L Hgb 13.9 L Hct 42.4 MCV 95.7 MCH 31.4 MCHC 32.8 RDW 12.2 Plt Count 179 MPV 9.6 Immature Gran % (Auto) 0.3 Neut % (Auto) 82.6 H Lymph % (Auto) 9.0 L Wilson % (Auto) 6.5 Eos % (Auto) 1.2 Baso % (Auto) 0.4 Lymph # (Auto) 0.62 L Wilson # (Auto) 0.5 Eos # (Auto) 0.1 Baso # (Auto) 0.0 Abs Immat Gran (auto) 0.02 Absolute Neuts (auto) 5.7 Absolute Nucleated RBC 0.000 Nucleated RBC % 0.0 Sodium 135 L Potassium 4.6 Chloride 101 Carbon Dioxide 25 Anion Gap 9 BUN 21 H Creatinine 0.82 Estim Creat Clear Calc 79 Estimated GFR > 60 Glucose 343 H POC Capillary Glucose 324 H Lactic Acid 1.5 Calcium 9.4 Total Bilirubin 0.9 AST 29 ALT 22 Alkaline Phosphatase 110 C-Reactive Protein 2.3 H Total Protein 7.7 Albumin 4.2 01/16/25 01/16/25 01/16/25 15:00 19:21 23:23 WBC RBC Hgb Hct MCV MCH MCHC RDW Plt Count MPV Immature Gran % (Auto) Neut % (Auto) Lymph % (Auto) Wilson % (Auto) Eos % (Auto) Baso % (Auto) Lymph # (Auto) Wilson # (Auto) Eos # (Auto) Baso # (Auto) Abs Immat Gran (auto) Absolute Neuts (auto) Absolute Nucleated RBC Nucleated RBC % Sodium Potassium Chloride Carbon Dioxide Anion Gap BUN Creatinine Estim Creat Clear Calc Estimated GFR Glucose POC Capillary Glucose 315 H 217 H 214 H Lactic Acid Calcium Total Bilirubin AST ALT Alkaline Phosphatase C-Reactive Protein Total Protein Albumin 01/17/25 01/17/25 01/17/25 05:36 05:43 07:50 WBC 3.9 L RBC 3.87 L Hgb 12.2 L Hct 37.0 L MCV 95.6 MCH 31.5 MCHC 33.0 RDW 12.1 Plt Count 160 MPV 9.9 Immature Gran % (Auto) 1.0 H Neut % (Auto) 60.8 Lymph % (Auto) 24.5 Wilson % (Auto) 8.8 H Eos % (Auto) 4.1 Baso % (Auto) 0.8 Lymph # (Auto) 0.95 Wilson # (Auto) 0.3 Eos # (Auto) 0.2 Baso # (Auto) 0.0 Abs Immat Gran (auto) 0.04 H Absolute Neuts (auto) 2.4 Absolute Nucleated RBC 0.000 Nucleated RBC % 0.0 Sodium 135 L Potassium 4.2 Chloride 104 Carbon Dioxide 24 Anion Gap 7 BUN 16 Creatinine 0.57 L Estim Creat Clear Calc 110 Estimated GFR > 60 Glucose 328 H POC Capillary Glucose 328 H 315 H Lactic Acid Calcium 8.4 Total Bilirubin AST ALT Alkaline Phosphatase C-Reactive Protein Total Protein Albumin Quality VTE Prophylaxis VTE prophylaxis: mechanical ordered and pharmacologic ordered
[2025-01-17] MEDS: VANCOMYCIN 1,500 MG/NS 500 ML 1,500 MG/500 ML BAG 250 MG IVPB ×2 (08:36→20:17)
[2025-01-17 12:30] VITALS: BMI 27.6
[2025-01-17 14:00] VITALS: BP 144/85; PULSE 83; RESP 18; TEMP 36.4; O2SAT 99
[2025-01-17] MEDS: SODIUM CHLORIDE 0.9% IV 1,000 ML 75 ML IV CONT (14:15)
[2025-01-17] MEDS: INSULIN ASPART (*BKC) 100 UNITS/ML SUB-Q ×2 (17:28→20:18)
[2025-01-17 19:45] VITALS: BP 143/97; PULSE 89; RESP 16; TEMP 36.7; O2SAT 100
[2025-01-17 20:00] VITALS: PULSE 86
[2025-01-17] MEDS: INSULIN GLARGINE (*BKC) 100 UNITS/ML 20 UNITS SUB-Q (20:17)
[2025-01-17] MEDS: HYDROcodone/acetaminophen (*CRX) 5-325 MG TABLET 1 TAB PO (20:20)
[2025-01-18] VITALS: PULSE 88
[2025-01-18] MEDS: CEFEPIME 2 GM in SODIUM CHLORIDE 0.9% IV 50 ML 100 ML IVPB ×2 (02:09→12:56)
[2025-01-18 04:00] VITALS: PULSE 90
[2025-01-18 04:55] VITALS: BP 149/93; PULSE 81; RESP 16; TEMP 36.4; O2SAT 98
[2025-01-18] MEDS: LORazepam (*CRX) 1 MG TABLET 2 MG PO (06:10)
[2025-01-18] MEDS: metroNIDAZOLE 500 MG/ISO 100ML 500 MG/100 ML BAG 100 MG IVPB ×3 (06:12→23:12)
[2025-01-18 07:44] LABS: Estimated CRCL calculation 110 ml/min; Estimated Glomerular Filt Rate > 60
[2025-01-18 08:04] LABS: Hematocrit 39.9 % (42.0-52.0); Hemoglobin 13.1 g/dL (14.0-18.0); Mean Corpuscular HGB Conc 32.8 g/dl (32-36); Mean Corpuscular Hemoglobin 31.3 pg (26-34); Mean Corpuscular Volume 95.2 fl (80-100); Platelet Count Result 177 k/mm3 (150-375); Red Blood Count 4.19 M/mm3 (4.6-6.20); White Blood Count 3.6 K/mm3 (4.5-10.0)
[2025-01-18] MEDS: DOCUSATE SODIUM 100 MG CAPSULE PO (08:23)
[2025-01-18] MEDS: ENOXAPARIN 40 MG/0.4 ML SYRINGE SUB-Q (08:27)
[2025-01-18] MEDS: THIAMINE HCL 200 MG/2 ML VIAL 100 MG IV PUSH (08:27)
[2025-01-18] MEDS: INSULIN ASPART (*BKC) 100 UNITS/ML 6 UNITS SUB-Q ×3 (08:28→17:10)
[2025-01-18] MEDS: INSULIN ASPART (*BKC) 100 UNITS/ML SUB-Q ×4 (08:28→20:30)
[2025-01-18 08:57] LABS: Alanine Aminotransferase 21 U/L (6-50); Albumin Level 3.2 g/dL (3.5-5.1); Alkaline Phosphatase 76 U/L (38-126); Anion Gap 5 mmol/L (4-12); Aspartate Amino Transferase 27 U/L (17-59); Bilirubin,Total 0.3 mg/dL (0.2-1.3); Blood Urea Nitrogen 7 mg/dL (9-20); Calcium 8.9 mg/dL (8.4-10.2); Carbon Dioxide 27 mmol/L (22-30); Chloride 104 mmol/L (98-107); Estimated CRCL calculation 112 ml/min; Estimated Glomerular Filt Rate > 60; Glucose 238 mg/dL (65-110); Potassium 4.2 mmol/L (3.4-5.0); Sodium 136 mmol/L (137-145); Total Protein 6.1 g/dL (6.3-8.2)
[2025-01-18] MEDS: VANCOMYCIN 1,750 MG/NS 500 ML 1,750 MG/500 ML BAG 250 MG IVPB ×2 (09:58→17:11)
--- NOTE | 2025-01-18 13:28 | P.PNIM_ITS ---
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 01/17 will increase lantus to 20 units add SS moderate with meals monitor closely and adjust as needed noted a regular pepsi at a bedside and chocolote chip cookie in bed with pt- pt states he doensot know how it got there- they keep bringing it to me - diet is carb consistent discussed with pt that he needs to adhere to diet 01/18 bs this am 224, and noon 257 will increase lantus to 23 units and monitor (3) Hypertension: Code(s): I10 - Essential (primary) hypertension Status: Chronic (4) ETOH abuse: Code(s): F10.10 - Alcohol abuse, uncomplicated Status: Acute Assessment and Plan: [facility] protocol Telemetry monitoring (5) Medical non-compliance: Code(s): Z91.199 - Patient's noncompliance with other medical treatment and regimen due to unspecified reason Status: Acute Assessment and Plan: discussed in great details pt states that he ran out of meds and his PCP would not refill them -last time he was in the hospital, RX was sent for BS monitor and diabetic medication but pt still not able to obtain it non compliance with diet-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 Patient complains of pain swelling and redness in his left 3rd toe he states that he was on oral antibiotics but it did not help. He states that it is getting worse. Patient states that he has been seeking care for this however the providers have not wanted to continue to see him. Ex states that the patient is very noncompliant with his providers recommendations. Patient does not take insulin for his diabetes or perform Accu-Cheks at home. She states that he is also a daily drinker of whiskey and beer. Patient states that he only drinks 6 beers a week. Lab work shows elevated glucose at 3:43 a.m., hemoglobin A1c of 11, C-reactive protein 2.3, x-ray shows no acute process. Patient will be admitted for IV antibiotics. 01/17 - pt is seen and examined. Noted that he was hospitalized with periorbital cellulitis in august and his hga1c was 11.6. Issues with noncompliance-pt ran out of medication, insulin and was not checking his BS at all. Reddens to lt middle toe started around december and never got better. He completed oral antibiotics bit he is not sure which ones. 01/18 seen and examined this morning. PT pain is a bit better. He is tolerating antibiotics better. bs reviewed and improved. Pt is concerned about going back to work right after discharge as he is on his feet a lot. Review of Systems Review of Systems: 12 systems were reviewed and are negativ e except for as per HPI. Exam Narrative: General: well appearing, appears stated age. HEENT: normocephalic, atraumatic. Mucous membranes moist. EOMI, PERRLA, bilateral sclera anicteric, no conjunctival injection. Neck supple without JVD, lymphadenopathy, or bruit. Respiratory: clear to ascultation bilaterally. No rales/rhonic/wheezes. Cardiovascular: Regular rate and rhythm, normal S1-S2 upon ascultation. No murmurs, rubs, or clicks. PMI is nondisplaced, capillary refill less than 3 second. Abdomen: Soft, round, no pulsatile masses, nondistended and nontender. No rebound, no guarding. No CVA tenderness, no hepatosplenomegaly. Bowel sounds present to all four quadrants. No high pitch or tinkling sounds, resonant to percussion. Extremities: No cyanosis, clubbing, or edema present. Pulses are palpable 2/2. Active ROM to all four extremities. Left 3rd toe with erythema and swelling and open sore at the bottom. Neuro: Alert and orientated x 4. PERRLA. Cranial nerves 2-12 intact without focal deficit. Skin: Warm, dry, and intact, without rash, erythema, or lesion. Psych: pleasant, cooperative, normal speech, normal affect, no hallucinations, no dysarthia Objective Data Vital Signs Vital Signs: Vital Signs - 24 hr 01/17/25 14:00 01/17/25 19:45 01/17/25 20:00 Temperature 97.5 F L 98.1 F Pulse Rate 83 89 Pulse Rate [Left Brachial] 86 Respiratory Rate 18 16 Blood Pressure 144/85 H 143/97 H Pulse Oximetry 99 100 Oxygen Delivery 01/18/25 00:00 01/18/25 04:00 01/18/25 04:55 Temperature 97.5 F L Pulse Rate 81 Pulse Rate [Left Brachial] 88 90 Respiratory Rate 16 Blood Pressure 149/93 H Pulse Oximetry 98 Oxygen Delivery 01/18/25 08:25 Temperature Pulse Rate Pulse Rate [Left Brachial] Respiratory Rate Blood Pressure Pulse Oximetry Oxygen Delivery Room Air Intake/Output Intake/Output: Intake & Output 01/15/25 01/16/25 01/17/25 01/18/25 23:59 23:59 23:59 23:59 Intake Total 490 2570 940 Output Total 300 1900 2800 Balance 190 670 -1860 Meds/Results Medications: Active Medications Generic Name Dose Route Start Last Admin Trade Name Freq PRN Reason Stop Dose Admin Acetaminophen 650 mg 01/16/25 14:59 Acetaminophen 325 Mg Tablet PO Q4H PRN Mild Pain (1-3) or Fever Hydrocodone Bitart/Acetaminophen 1 tab 01/16/25 14:59 01/17/25 20:20 Hydrocodone/Acetaminophen (*Crx) 5-325 Mg Tablet PO 1 tab Q4H PRN Administration Pain Rated 4-6 Amlodipine Besylate 5 mg 01/16/25 13:15 01/18/25 08:22 Amlodipine Besylate 5 Mg Tablet PO 5 mg DAILY MOE Administration Dextrose 12.5 gm 01/16/25 15:10 Dextrose 50% 25 Gm/50 Ml Syringe IV PUSH PRN PRN Hypoglycemia Protocol Docusate Sodium 100 mg 01/16/25 17:00 01/18/25 08:23 Docusate Sodium 100 Mg Capsule PO 100 mg BID MOE Administration Enoxaparin Sodium 40 mg 01/17/25 09:00 01/18/25 08:27 Enoxaparin 40 Mg/0.4 Ml Syringe SUB-Q 40 mg DAILY MOE Administration Glucagon 1 mg 01/16/25 15:10 Glucagon For Inj 1 Mg Vial IM PRN PRN Hypoglycemia Protocol Glucose 15 gm 01/16/25 14:59 Glucose Oral Gel 15 Gm Of Glucse In 37.5 Gm Tube PO PRN PRN Hypoglycemia Protocol Glucose 15 gm 01/16/25 15:10 Glucose Oral Gel 15 Gm Of Glucse In 37.5 Gm Tube PO PRN PRN Hypoglycemia Protocol Cefepime HCl 2 gm/ Sodium 50 mls @ 100 mls/hr 01/17/25 01:00 01/18/25 12:56 Chloride IVPB 100 mls/hr Q12H MOE Administration Metronidazole 500 mg in 100 mls @ 100 mls/hr 01/16/25 22:00 01/18/25 06:12 Flagyl 500 Mg/Iso Soln 100 Ml IVPB 100 mls/hr Q8H MOE Administration Dextrose 1,000 mls @ 100 mls/hr 01/16/25 15:10 Dextrose 5% 1,000 Ml IVPB PRN PRN Hypoglycemia Protocol Vancomycin HCl 1,750 mg in 500 mls @ 250 mls/hr 01/18/25 10:00 01/18/25 09:58 Vancomycin 1,750 Mg/Ns 500 Ml IVPB 250 mls/hr Q8H MOE Administration Insulin Aspart 6 units 01/16/25 13:55 01/18/25 12:07 Insulin Aspart (*Bkc) 100 Units/Ml 0.067 units/kg (6 units) 6 units SUB-Q Administration TIDWM [facility] Insulin Aspart 1 - 3 units 01/16/25 21:00 01/17/25 20:18 Insulin Aspart (*Bkc) 100 Units/Ml SUB-Q 1 units HS [facility] Administration Protocol Insulin Aspart 3 - 6 units 01/17/25 17:00 01/18/25 12:08 Insulin Aspart (*Bkc) 100 Units/Ml SUB-Q 4 units TIDWM [facility] Administration Protocol Insulin Glargine 20 units 01/17/25 21:00 01/17/25 20:17 Insulin Glargine (*Bkc) 100 Units/Ml SUB-Q 20 units HS [facility] Administration Ondansetron HCl 4 mg 01/16/25 14:59 Ondansetron Inj 4 Mg/2 Ml Vial IV PUSH Q4H PRN Nausea Thiamine HCl 100 mg 01/17/25 09:00 01/18/25 08:27 Thiamine Hcl 200 Mg/2 Ml Vial IV PUSH 100 mg DAILY MOE Administration Radiology Results: ITS Impressions Foot X-Ray 01/16/25 13:26 IMPRESSION: No acute osseous abnormality left foot. Polyarticular osteoarthritic changes. Labs Labs: Laboratory Results - last 24 hr 01/17/25 01/17/25 01/18/25 16:23 19:53 07:07 WBC 3.6 L RBC 4.19 L Hgb 13.1 L Hct 39.9 L MCV 95.2 MCH 31.3 MCHC 32.8 RDW 12.0 Plt Count 177 MPV 9.7 Sodium 136 L Potassium 4.2 Chloride 104 Carbon Dioxide 27 Anion Gap 5 BUN 7 L D Creatinine 0.57 L Estim Creat Clear Calc Estimated GFR Glucose POC Capillary Glucose 223 H 211 H Calcium Total Bilirubin AST ALT Alkaline Phosphatase Total Protein Albumin Vancomycin Trough 01/18/25 01/18/25 01/18/25 07:07 07:07 07:07 WBC RBC Hgb Hct MCV MCH MCHC RDW Plt Count MPV Sodium Potassium Chloride Carbon Dioxide Anion Gap BUN Creatinine 0.56 L Estim Creat Clear Calc 110 112 Estimated GFR > 60 > 60 Glucose 238 H POC Capillary Glucose Calcium 8.9 Total Bilirubin 0.3 AST 27 ALT 21 Alkaline Phosphatase 76 Total Protein 6.1 L Albumin 3.2 L Vancomycin Trough 8.6 L 01/18/25 01/18/25 07:50 11:36 WBC RBC Hgb Hct MCV MCH MCHC RDW Plt Count MPV Sodium Potassium Chloride Carbon Dioxide Anion Gap BUN Creatinine Estim Creat Clear Calc Estimated GFR Glucose POC Capillary Glucose 224 H 257 H Calcium Total Bilirubin AST ALT Alkaline Phosphatase Total Protein Albumin Vancomycin Trough Quality VTE Prophylaxis VTE prophylaxis: mechanical ordered and pharmacologic ordered
[2025-01-18 14:00] VITALS: BP 127/88; PULSE 96; RESP 16; TEMP 36.3; O2SAT 96
[2025-01-18 19:35] VITALS: BP 152/94; PULSE 86; RESP 17; TEMP 36.9; O2SAT 100
[2025-01-18] MEDS: HYDROcodone/acetaminophen (*CRX) 5-325 MG TABLET 1 TAB PO (20:29)
[2025-01-18] MEDS: INSULIN GLARGINE (*BKC) 100 UNITS/ML 23 UNITS SUB-Q (20:30)
[2025-01-18 21:01] VITALS: O2SAT 99
[2025-01-19] MEDS: CEFEPIME 2 GM in SODIUM CHLORIDE 0.9% IV 50 ML 100 ML IVPB ×2 (01:51→15:38)
[2025-01-19] MEDS: VANCOMYCIN 1,750 MG/NS 500 ML 1,750 MG/500 ML BAG 250 MG IVPB ×3 (02:26→16:59)
[2025-01-19 06:00] VITALS: BP 143/94; PULSE 72; RESP 16; TEMP 36.8; O2SAT 97
[2025-01-19] MEDS: metroNIDAZOLE 500 MG/ISO 100ML 500 MG/100 ML BAG 100 MG IVPB ×3 (06:01→21:48)
[2025-01-19] MEDS: DOCUSATE SODIUM 100 MG CAPSULE PO ×2 (07:54→16:31)
[2025-01-19] MEDS: INSULIN ASPART (*BKC) 100 UNITS/ML 6 UNITS SUB-Q ×3 (07:54→16:30)
[2025-01-19] MEDS: INSULIN ASPART (*BKC) 100 UNITS/ML SUB-Q ×2 (07:54→16:31)
[2025-01-19] MEDS: THIAMINE HCL 200 MG/2 ML VIAL 100 MG IV PUSH (07:55)
[2025-01-19] MEDS: ENOXAPARIN 40 MG/0.4 ML SYRINGE SUB-Q (07:56)
[2025-01-19 09:03] LABS: Hematocrit 40.9 % (42.0-52.0); Hemoglobin 13.8 g/dL (14.0-18.0); Mean Corpuscular HGB Conc 33.7 g/dl (32-36); Mean Corpuscular Hemoglobin 31.8 pg (26-34); Mean Corpuscular Volume 94.2 fl (80-100); Platelet Count Result 182 k/mm3 (150-375); Red Blood Count 4.34 M/mm3 (4.6-6.20); White Blood Count 4.1 K/mm3 (4.5-10.0)
--- NOTE | 2025-01-19 09:29 | P.PNIM_ITS ---
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 Carb consist diet 01/17 will increase lantus to 20 units add SS moderate with meals monitor closely and adjust as needed noted a regular pepsi at a bedside and chocolate chip cookie in bed with pt- pt states he does not know how it got there- they keep bringing it to nm - diet is carb consistent discussed with pt that he needs to adhere to diet 01/18 bs this am 224, and noon 257 will increase lantus to 23 units and monitor 01/19 BS improved continue regimen (3) Hypertension: Code(s): I10 - Essential (primary) hypertension Status: Chronic (4) ETOH abuse: Code(s): F10.10 - Alcohol abuse, uncomplicated Status: Acute Assessment and Plan: [facility] protocol Telemetry monitoring (5) Medical non-compliance: Code(s): Z91.199 - Patient's noncompliance with other medical treatment and regimen due to unspecified reason Status: Acute Assessment and Plan: discussed in great details pt states that he ran out of meds and his PCP would not refill them -last time he was in the hospital, RX was sent for BS monitor and diabetic medication but pt still not able to obtain it non compliance with diet-states eats [employer] and 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 Patient complains of pain swelling and redness in his left 3rd toe he states that he was on oral antibiotics but it did not help. He states that it is getting worse. Patient states that he has been seeking care for this however the providers have not wanted to continue to see him. Ex states that the patient is very noncompliant with his providers recommendations. Patient does not take insulin for his diabetes or perform Accu-Cheks at home. She states that he is also a daily drinker of whiskey and beer. Patient states that he only drinks 6 beers a week. Lab work shows elevated glucose at 3:43 a.m., hemoglobin A1c of 11, C-reactive protein 2.3, x-ray shows no acute process. Patient will be admitted for IV antibiotics. 01/17 - pt is seen and examined. Noted that he was hospitalized with periorbital cellulitis in august and his hga1c was 11.6. Issues with noncompliance-pt ran out of medication, insulin and was not checking his BS at all. Reddens to lt middle toe started around december and never got better. He completed oral antibiotics bit he is not sure which ones. 01/18 seen and examined this morning. PT pain is a bit better. He is tolerating antibiotics better. BS reviewed and improved. Pt is concerned about going back to work right after discharge as he is on his feet a lot. 01/19 pt is seen during morning rounds. Notes BS is 208 this am. redness improving to lt second toe, pain is improving. Review of Systems Review of Systems: 12 systems were reviewed and are negativ e except for as per HPI. Exam Narrative: General: well appearing, appears stated age. HEENT: normocephalic, atraumatic. Mucous membranes moist. EOMI, PERRLA, bilateral sclera anicteric, no conjunctival injection. Neck supple without JVD, lymphadenopathy, or bruit. Respiratory: clear to ascultation bilaterally. No rales/rhonic/wheezes. Cardiovascular: Regular rate and rhythm, normal S1-S2 upon ascultation. No murmurs, rubs, or clicks. PMI is nondisplaced, capillary refill less than 3 second. Abdomen: Soft, round, no pulsatile masses, nondistended and nontender. No rebound, no guarding. No CVA tenderness, no hepatosplenomegaly. Bowel sounds present to all four quadrants. No high pitch or tinkling sounds, resonant to percussion. Extremities: No cyanosis, clubbing, or edema present. Pulses are palpable 2/2. Active ROM to all four extremities. Left 3rd toe with erythema and swelling and open sore at the bottom. Neuro: Alert and orientated x 4. PERRLA. Cranial nerves 2-12 intact without focal deficit. Skin: Warm, dry, and intact, without rash, erythema, or lesion. Psych: pleasant, cooperative, normal speech, normal affect, no hallucinations, no dysarthia Objective Data Vital Signs Vital Signs: Vital Signs - 24 hr 01/18/25 14:00 01/18/25 19:35 01/18/25 21:01 Temperature 97.4 F L 98.4 F Pulse Rate 96 86 Respiratory Rate 16 17 Blood Pressure 127/88 152/94 H Pulse Oximetry 96 100 99 Oxygen Delivery Room Air 01/19/25 06:00 Temperature 98.2 F Pulse Rate 72 Respiratory Rate 16 Blood Pressure 143/94 H Pulse Oximetry 97 Oxygen Delivery Intake/Output Intake/Output: Intake & Output 01/16/25 01/17/25 01/18/25 01/19/25 23:59 23:59 23:59 23:59 Intake Total 490 2570 3256 100 Output Total 300 1900 3700 1800 Balance 190 [phone] Meds/Results Medications: Active Medications Generic Name Dose Route Start Last Admin Trade Name Freq PRN Reason Stop Dose Admin Acetaminophen 650 mg 01/16/25 14:59 Acetaminophen 325 Mg Tablet PO Q4H PRN Mild Pain (1-3) or Fever Hydrocodone Bitart/Acetaminophen 1 tab 01/16/25 14:59 01/18/25 20:29 Hydrocodone/Acetaminophen (*Crx) 5-325 Mg Tablet PO 1 tab Q4H PRN Administration Pain Rated 4-6 Amlodipine Besylate 5 mg 01/16/25 13:15 01/19/25 07:55 Amlodipine Besylate 5 Mg Tablet PO 5 mg DAILY MOE Administration Dextrose 12.5 gm 01/16/25 15:10 Dextrose 50% 25 Gm/50 Ml Syringe IV PUSH PRN PRN Hypoglycemia Protocol Docusate Sodium 100 mg 01/16/25 17:00 01/19/25 07:54 Docusate Sodium 100 Mg Capsule PO 100 mg BID MOE Administration Enoxaparin Sodium 40 mg 01/17/25 09:00 01/19/25 07:56 Enoxaparin 40 Mg/0.4 Ml Syringe SUB-Q 40 mg DAILY MOE Administration Glucagon 1 mg 01/16/25 15:10 Glucagon For Inj 1 Mg Vial IM PRN PRN Hypoglycemia Protocol Glucose 15 gm 01/16/25 14:59 Glucose Oral Gel 15 Gm Of Glucse In 37.5 Gm Tube PO PRN PRN Hypoglycemia Protocol Glucose 15 gm 01/16/25 15:10 Glucose Oral Gel 15 Gm Of Glucse In 37.5 Gm Tube PO PRN PRN Hypoglycemia Protocol Cefepime HCl 2 gm/ Sodium 50 mls @ 100 mls/hr 01/17/25 01:00 01/19/25 01:51 Chloride IVPB 100 mls/hr Q12H MOE Administration Metronidazole 500 mg in 100 mls @ 100 mls/hr 01/16/25 22:00 01/19/25 06:01 Flagyl 500 Mg/Iso Soln 100 Ml IVPB 100 mls/hr Q8H MOE Administration Dextrose 1,000 mls @ 100 mls/hr 01/16/25 15:10 Dextrose 5% 1,000 Ml IVPB PRN PRN Hypoglycemia Protocol Vancomycin HCl 1,750 mg in 500 mls @ 250 mls/hr 01/18/25 10:00 01/19/25 02:26 Vancomycin 1,750 Mg/Ns 500 Ml IVPB 250 mls/hr Q8H MOE Administration Insulin Aspart 6 units 01/16/25 13:55 01/19/25 07:54 Insulin Aspart (*Bkc) 100 Units/Ml 0.067 units/kg (6 units) 6 units SUB-Q Administration TIDWM MOE Insulin Aspart 1 - 3 units 01/16/25 21:00 01/18/25 20:30 Insulin Aspart (*Bkc) 100 Units/Ml SUB-Q 1 units HS [facility] Administration Protocol Insulin Aspart 3 - 6 units 01/17/25 17:00 01/19/25 07:54 Insulin Aspart (*Bkc) 100 Units/Ml SUB-Q 3 units TIDWM [facility] Administration Protocol Insulin Glargine 23 units 01/18/25 21:00 01/18/25 20:30 Insulin Glargine (*Bkc) 100 Units/Ml SUB-Q 23 units HS [facility] Administration Ondansetron HCl 4 mg 01/16/25 14:59 Ondansetron Inj 4 Mg/2 Ml Vial IV PUSH Q4H PRN Nausea Thiamine HCl 100 mg 01/17/25 09:00 01/19/25 07:55 Thiamine Hcl 200 Mg/2 Ml Vial IV PUSH 100 mg DAILY MOE Administration Radiology Results: ITS Impressions Foot X-Ray 01/16/25 13:26 IMPRESSION: No acute osseous abnormality left foot. Polyarticular osteoarthritic changes. Labs Labs: Laboratory Results - last 24 hr 01/18/25 01/18/25 01/18/25 11:36 16:33 19:50 WBC RBC Hgb Hct MCV MCH MCHC RDW Plt Count MPV POC Capillary Glucose 257 H 239 H 213 H 01/19/25 01/19/25 07:40 08:49 WBC 4.1 L RBC 4.34 L Hgb 13.8 L Hct 40.9 L MCV 94.2 MCH 31.8 MCHC 33.7 RDW 12.0 Plt Count 182 MPV 9.3 POC Capillary Glucose 208 H Quality VTE Prophylaxis VTE prophylaxis: mechanical ordered and pharmacologic ordered
[2025-01-19 09:33] LABS: Alanine Aminotransferase 36 U/L (6-50); Albumin Level 3.6 g/dL (3.5-5.1); Alkaline Phosphatase 69 U/L (38-126); Anion Gap 4 mmol/L (4-12); Aspartate Amino Transferase 58 U/L (17-59); Bilirubin,Total 0.4 mg/dL (0.2-1.3); Blood Urea Nitrogen 7 mg/dL (9-20); Calcium 9.1 mg/dL (8.4-10.2); Carbon Dioxide 26 mmol/L (22-30); Chloride 105 mmol/L (98-107); Estimated CRCL calculation 124 ml/min; Estimated Glomerular Filt Rate > 60; Glucose 225 mg/dL (65-110); Potassium 3.9 mmol/L (3.4-5.0); Sodium 135 mmol/L (137-145); Total Protein 6.9 g/dL (6.3-8.2)
[2025-01-19] MEDS: SACCHAROMYCES BOULARDII 250 MG CAPSULE PO ×2 (12:00→16:31)
[2025-01-19 14:00] VITALS: BP 121/78; PULSE 73; RESP 18; TEMP 37.2; O2SAT 97
[2025-01-19 21:00] VITALS: BP 138/87; PULSE 83; RESP 14; TEMP 36.6; O2SAT 96
[2025-01-19] MEDS: INSULIN GLARGINE (*BKC) 100 UNITS/ML 23 UNITS SUB-Q (21:58)
[2025-01-20] MEDS: VANCOMYCIN 1,750 MG/NS 500 ML 1,750 MG/500 ML BAG 250 MG IVPB (01:10)
[2025-01-20] MEDS: CEFEPIME 2 GM in SODIUM CHLORIDE 0.9% IV 50 ML 100 ML IVPB (01:10)
[2025-01-20 05:16] VITALS: BP 128/83; PULSE 77; RESP 16; TEMP 37.1; O2SAT 98
[2025-01-20] MEDS: metroNIDAZOLE 500 MG/ISO 100ML 500 MG/100 ML BAG 100 MG IVPB (05:40)
[2025-01-20 06:03] LABS: Hematocrit 40.9 % (42.0-52.0); Hemoglobin 13.3 g/dL (14.0-18.0); Mean Corpuscular HGB Conc 32.5 g/dl (32-36); Mean Corpuscular Hemoglobin 31.6 pg (26-34); Mean Corpuscular Volume 97.1 fl (80-100); Platelet Count Result 186 k/mm3 (150-375); Red Blood Count 4.21 M/mm3 (4.6-6.20); White Blood Count 5.1 K/mm3 (4.5-10.0)
[2025-01-20 06:35] LABS: Alanine Aminotransferase 61 U/L (6-50); Albumin Level 3.6 g/dL (3.5-5.1); Alkaline Phosphatase 66 U/L (38-126); Anion Gap 2 mmol/L (4-12); Aspartate Amino Transferase 76 U/L (17-59); Bilirubin,Total 0.3 mg/dL (0.2-1.3); Blood Urea Nitrogen 10 mg/dL (9-20); Calcium 9.0 mg/dL (8.4-10.2); Carbon Dioxide 30 mmol/L (22-30); Chloride 103 mmol/L (98-107); Estimated CRCL calculation 100 ml/min; Estimated Glomerular Filt Rate > 60; Glucose 160 mg/dL (65-110); Potassium 3.8 mmol/L (3.4-5.0); Sodium 135 mmol/L (137-145); Total Protein 6.8 g/dL (6.3-8.2)
--- NOTE | 2025-01-20 07:18 | P.DS_ITS ---
DS: Admitting Diagnosis Discharge Date 01/20 Admitting Diagnosis cellulitis DS: Discharge Diagnosis Discharge Diagnosis (1) Cellulitis: Code(s): L03.90 - Cellulitis, unspecified Status: Acute (2) Type 2 diabetes mellitus with hyperglycemia: Code(s): E11.65 - Type 2 diabetes mellitus with hyperglycemia Status: Acute (3) Hypertension: Code(s): I10 - Essential (primary) hypertension Status: Chronic (4) ETOH abuse: Code(s): F10.10 - Alcohol abuse, uncomplicated Status: Acute (5) Medical non-compliance: Code(s): Z91.199 - Patient's noncompliance with other medical treatment and regimen due to unspecified reason Status: Acute DS: Summary Hospital Course Hospital Course: 64-year-old male history of diabetes, hypertension presents the hospital with a nonhealing wound. Patient complains of pain swelling and redness in his left 3rd toe he states that he was on oral antibiotics but it did not help. He states that it is getting worse. Patient states that he has been seeking care for this however the providers have not wanted to continue to see him. Ex states that the patient is very noncompliant with his providers recommendations. Patient does not take insulin for his diabetes or perform Accu-Cheks at home. She states that he is also a daily drinker of whiskey and beer. Patient states that he only drinks 6 beers a week. Lab work shows elevated glucose at 3:43 a.m., hemoglobin A1c of 11, C-reactive protein 2.3, x-ray shows no acute process. Patient will be admitted for IV antibiotics # cellulitis No signs of osteomyelitis on x-ray IVF Cefepime, Flagyl and vancomycin Wound care consulted recommendations reviewed silver gel, gauze- keep area clean/dry today, pt was downgraded to PO antibitics- doxy 100 mg bid-given dose at 10 am on 01/20, needs 11 more doses, last dose 01/25 at 9 pm. 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 will send rx for 500 mg daily x 1 week, then increase to 500 mg bid. Pt will not be taking meal insulin- so will continue lantus 23 units as he was taking here. Glucometer will be send for pt. He needs to check BS in am daily and keep log. It needs to be reviewed with new PCP or commercial print salesman for further titration/dose adjustment pt will end repeat cmp and hga1c in 2-3 months as well as. 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 HEENT: normocephalic, atraumatic. Mucous membranes moist. EOMI, PERRLA, bilateral sclera anicteric, no conjunctival injection. Neck supple without JVD, lymphadenopathy, or bruit. Respiratory: clear to ascultation bilaterally. No rales/rhonic/wheezes. Cardiovascular: Regular rate and rhythm, normal S1-S2 upon ascultation. No murmurs, rubs, or clicks. PMI is nondisplaced, capillary refill less than 3 second. Abdomen: Soft, round, no pulsatile masses, nondistended and nontender. No rebound, no guarding. No CVA tenderness, no hepatosplenomegaly. Bowel sounds present to all four quadrants. No high pitch or tinkling sounds, resonant to percussion. Extremities: No cyanosis, clubbing, or edema present. Pulses are palpable 2/2. Active ROM to all four extremities. Left 3rd toe with erythema and swelling and open sore at the bottom. Neuro: Alert and orientated x 4. PERRLA. Cranial nerves 2-12 intact without focal deficit. Skin: Warm, dry, and intact, without rash, erythema, or lesion. Psych: pleasant, cooperative, normal speech, normal affect, no hallucinations, no dysarthia DS: Data Data Completed and Pending Labs on day of discharge: Labs from last 24 hours 01/20/25 01/19/25 01/19/25 05:33 19:37 16:17 WBC 5.1 RBC 4.21 L Hgb 13.3 L Hct 40.9 L MCV 97.1 MCH 31.6 MCHC 32.5 RDW 12.1 Plt Count 186 MPV 9.5 Sodium 135 L Potassium 3.8 Chloride 103 Carbon Dioxide 30 Anion Gap 2 L BUN 10 Creatinine 0.63 L Estim Creat Clear Calc 100 Estimated GFR > 60 Glucose 160 H POC Capillary Glucose 200 H 252 H Calcium 9.0 Total Bilirubin 0.3 AST 76 H ALT 61 H Alkaline Phosphatase 66 Total Protein 6.8 Albumin 3.6 Vancomycin Trough 01/19/25 01/19/25 01/19/25 11:20 08:49 07:40 WBC 4.1 L RBC 4.34 L Hgb 13.8 L Hct 40.9 L MCV 94.2 MCH 31.8 MCHC 33.7 RDW 12.0 Plt Count 182 MPV 9.3 Sodium 135 L Potassium 3.9 Chloride 105 Carbon Dioxide 26 Anion Gap 4 BUN 7 L Creatinine 0.50 L Estim Creat Clear Calc 124 Estimated GFR > 60 Glucose 225 H POC Capillary Glucose 163 H 208 H Calcium 9.1 Total Bilirubin 0.4 AST 58 ALT 36 Alkaline Phosphatase 69 Total Protein 6.9 Albumin 3.6 Vancomycin Trough 18.0 Preliminary micro results at discharge 01/16/25 13:45 Blood Culture - Preliminary Blood 01/16/25 13:05 Blood Culture - Preliminary Blood Discharge Plan Discharge Attending physician on discharge: Harriet Barraza Consulting providers: Chase Adkisn Discharging Clinician: Sheila Kay Patient Disposition: Home Activity: october shower Diet: diabetic Discharge Instructions: You were admitted for cellulitis No signs of osteomyelitis on x-ray You were on IV antibiotics: Cefepime, Flagyl and vancomycin Wound care consulted: silver gel, gauze- keep area clean/dry today, 01/20, you were downgraded to PO antibitics- doxy 100 mg bid-given dose at 10 am on 01/20, needs 11 more doses, last dose 01/25 at 9 pm. # t2dm Hemoglobin A1c 11 art educator spoke with you Please , follow Carb consist diet. Prioritze lean meat, add fruits/veggies to your diet. Please continue lantus to 23 units Since Metformin was working for you and it was cheap enough, we will send rx for 500 mg daily x 1 week, then increase to 500 mg twice a day Glucometer will be send for you. You need to check blood sugars in am daily and keep log. It needs to be reviewed with new PCP or commercial print salesman for further titration/dose adjustment You will need repeat cmp and hga1c in 2-3 months as well as. # elevated liver enzymes FIB 4 score is 3.24 advised to have fibro scan as an oupt advised to quit drinking alcohol advised compliance to diabetic regimen will need to lose weight as well Patient Instructions: Antibiotic Form Patient Language: Macanese Stand Alone Forms: General Discharge Information, Work/School Release IP Follow-up/Referrals: [facility] [Provider Group] - 2 Weeks PHYSICIAN,RIGGING HELPER [Primary Care Provider] - 2 Weeks Discharge Medications: New doxycycline hyclate 100 mg Tablet 100 mg PO Q12HR Qty: 11 0RF insulin glargine [Lantus U-100 Insulin] 100 unit/mL Solution 23 unit subcut HS Qty: 3 3RF metformin [Glucophage XR] 500 mg tablet extended release 24 hr 500 mg PO BID Qty: 90 0RF Rx Instructions: please take 500 mg daily for 1 week, then increase to twice a day Continued ascorbic acid (vitamin C) [Vitamin C] 500 mg tablet 500 mg PO DAILY vitamin E (dl, acetate) 180 mg (400 unit) capsule 180 mg PO DAILY dextrose [Glutose-15] 40 % Gel 15 g PO PRN PRN (Reason: Hypoglycemia) Qty: 112.5 0RF Rx Instructions: Use if glucose is less than 70 (DME) pen needle, diabetic [BD Ultra-Fine Micro Pen Needle] 32 gauge x 1/4 needle 1 ea miscellaneous QID Qty: 100 3RF (DME) blood-glucose meter [True Metrix Glucose Meter] Misc See Rx Instructions .Route Qty: 1 0RF Rx Instructions: As directed meloxicam 15 mg tablet 15 mg PO DAILY Qty: 30 0RF lisinopril 20 mg Tablet 20 mg PO DAILY Qty: 90 0RF (DME) True Metrix Glucose Test Strip Strip See Rx Instructions .Route Qty: 100 3RF Rx Instructions: As directed (DME) lancing device [lancing device with lancets] Misc See Rx Instructions .Route Qty: 1 0RF Rx Instructions: As directed Discontinued linezolid 600 mg Tablet 600 mg PO Q12HR Qty: 14 0RF insulin degludec [Tresiba FlexTouch U-100] 100 unit/mL (3 mL) insulin pen 20 unit subcut HS Qty: 15 0RF insulin aspart U-100 [Novolog FlexPen U-100 Insulin] 100 unit/mL (3 mL) insulin pen See Protocol subcut USEASDIRECTD Qty: 15 0RF Protocol: Insulin Corrective High-Dose Condition: glucose < 70 mg/dl Dose/Route: Follow hypoglycemia order Condition: glucose 70-200 mg/dl Dose/Route: No additional insulin Condition: glucose 201-250 mg/dl Dose/Route: 4 units sub-Q Condition: glucose 251-300 mg/dl Dose/Route: 5 units sub-Q Condition: glucose 301-350 mg/dl Dose/Route: 6 units sub-Q Condition: glucose 351-400 mg/dl Dose/Route: 8 units sub-Q Condition: glucose > 400 mg/dl Dose/Route: Call MD Protocol Text: *No Correction Dose at Bedtime* Date of admission: 01/16/25 14:59 Primary Care Provider: PHYSICIAN,RIGGING HELPER Admitting Provider: Harriet Barraza Attending physician on admission: Harriet Barraza Condition: Stable Quality VTE Prophylaxis VTE prophylaxis: mechanical ordered and pharmacologic ordered
[2025-01-20] MEDS: THIAMINE HCL 200 MG/2 ML VIAL 100 MG IV PUSH (08:02)
[2025-01-20] MEDS: SACCHAROMYCES BOULARDII 250 MG CAPSULE PO ×2 (08:02→12:02)
[2025-01-20] MEDS: ENOXAPARIN 40 MG/0.4 ML SYRINGE SUB-Q (08:02)
[2025-01-20] MEDS: HYDROcodone/acetaminophen (*CRX) 5-325 MG TABLET 1 TAB PO (08:05)
[2025-01-20] MEDS: DOXYCYCLINE HYCLATE 100 MG TABLET PO (10:22)
[2025-01-20] MEDS: INSULIN ASPART (*BKC) 100 UNITS/ML 6 UNITS SUB-Q (11:52)
[2025-01-20] MEDS: INSULIN ASPART (*BKC) 100 UNITS/ML SUB-Q (11:53)
--- NOTE | 2025-01-31 16:07 | PCCDE ---
Courtesy follow up call placed. Message left.
== END 2025-01-20 12:45 | disposition home or self-care (01) | DRG 603 ==
LOC: ANHED 14:56 → ANH3MEDSUR 16:13
PROVIDERS: Admitting Provider Internal Medicine; Emergency Provider Family Medicine; Visit Provider Nurse Practitioner
DX: L03.116 Cellulitis of left lower limb (principal); L97.529 Non-pressure chronic ulcer of other part of left foot with unspecified severity; E11.621 Type 2 diabetes mellitus with foot ulcer; E11.65 Type 2 diabetes mellitus with hyperglycemia; I10 Essential (primary) hypertension; F10.10 Alcohol abuse, uncomplicated; R74.8 Abnormal levels of other serum enzymes; Z79.4 Long term (current) use of insulin; Z79.899 Other long term (current) drug therapy; Z91.118 Patient's noncompliance with dietary regimen for other reason; Z91.148 Patient's other noncompliance with medication regimen for other reason
CPT/HCPCS: 36415; 73630; 80048; 80053; 80202; 82565; 82948; 83605; 85025; 85027; 86140; 87040; 96361; 96365; 96368; 96375; 96376; 99285; A9270; J0692; J1650; J1815; J1836; J2270; J2405; J3373; J3411; J3475; J7030

== ENCOUNTER 2025-02-10 09:25 | Emergency (ER) | payer OTHER, SELFPAY ==
--- OUTSIDE RECORDS SUMMARY | 2025-02-10 09:30 | XMS_ITS | Clinical Summary ---
Author Organization [facility] Address [address] [place] [id number] Care Team Providers Care Whiskey Filterer Name Role Phone Samm Govea MD Primary Care Provider Allergies Active Allergy Reactions Criticality Noted Date Comments Monosodium Glutamate Unknown 12/02/2019 palpitations Medications lisinopriL (PRINIVIL,ZESTR IL) 10 mg tabletIndicatio ns:hypertension Take 10 mg by mouth automobile tire builder before breakfast Active empagliflozin (JARDIANCE) 25 mg tabletIndicatio ns:type 2 diabetes mellitus Take 25 mg by mouth automobile tire builder before breakfast Active vitamin E (AQUASOL E) 200 unit capsuleIndicati ons:supplement Take 200 Units by mouth automobile tire builder before breakfast Active potassium gluconate 500 mg [...] (12/03/2019): Added automatically from request for surgery [id number] Surgical History Surgery Date Site/Laterality Comments NO [...] on file Legal Sex Male 7:44 PM NITRO MAN Gender Identity Not on file Sexual Orientation [...] on file Medical Devices Implanted Type Area Studio Hand Device Identifier Shelf Expiration Date Model / Serial / Lot [employer] [id number] Delta Xtend 27mm Cementless Shoulder Standard Component Glenoid Latex Free - [id number] Implanted:Qty: 1 on 12/24/2019 by Chico Collins MD at [facility] Right: Shoulder [employer] [id number] 08/02/2024 [id number] / / [id number] [employer] [id number] Delta Xtend 4.5mm 48mm Lock Shoulder Glenoid Screw Bone Metaglene - [id number] Implanted:Qty: 1 on 12/24/2019 by Chico Collins MD at [facility] Right: Shoulder [employer] [id number] 07/02/2024 [id number] / / [id number] [employer] [id number] Delta Xtend 4.5mm 42mm Lock Shoulder Glenoid Screw Bone Metaglene - [id number] Implanted:Qty: 1 on 12/24/2019 by Chico Collins MD at [facility] Right: Shoulder [employer] [id number] 08/02/2024 [id number] / / [id number] [employer] [id number] Component Glenoid Delta Xtend +4mm Eccentric Od42mm - [id number] Implanted:Qty: 1 on 12/24/2019 by Chico Collins MD at [facility] Right: Shoulder [employer] [id number] 10/01/2023 [id number] / / [id number] [employer] [id number] Global Unite 12mm 120mm Modular Shoulder Standard Stem Humeral - [id number] Implanted:Qty: 1 on 12/24/2019 by Chico Collins MD at [facility] Right: Shoulder [employer] [id number] 11/30/2028 [id number] / / [id number] [employer] [id number] Delta Xtend Cementless Modular Shoulder Right Epiphysis 155d 1 Latex Free - [id number] Implanted:Qty: 1 on 12/24/2019 by Chico Collins MD at [facility] Right: Shoulder [employer] [id number] 08/02/2024 [id number] / / [id number] [employer] [id number] Delta Xtend 42mm Shoulder +3mm Standard Cup Humeral Polyethylene Latex Free - [id number] Implanted:Qty: 1 on 12/24/2019 by Chico Collins MD at [facility] Right: Shoulder [employer] [id number] 06/01/2024 [id number] / / [id number] Explanted Type Area Studio Hand Device Identifier Shelf Expiration Date Model / Serial / Lot [employer] [id number] Rena 3/32in 9in 2 Trocar Pin Fixation Nonsterile - [id number] Explanted:Qty: 1 on 12/24/2019 by Chico Collins MD at [facility] Right: Shoulder [place] [employer] [id number] S / / Insurance [place] Advance Directives For more information, please contact: [phone] * Full Code (Latest Code Status on File) Date Activated Date Inactivated Comments 12/24/2019 2:33 PM 12/25/2019 6:44 PM Care Teams Whiskey Filterer Relationship Specialty Start Date End Date Samm Govea MD [address] [place] [address] PCP - General 12/24/19
[2025-02-10 09:52] VITALS: BP 146/77; PULSE 103; RESP 16; TEMP 36.6; O2SAT 99
--- OUTSIDE RECORDS SUMMARY | 2025-02-10 12:18 | XMS_ITS | Clinical Summary ---
Author Organization [facility] Address [facility] [place] [address] Care Team Providers Care Quality Assurance Calibrator Name Role Phone Unavailable Primary Care Provider Unavailabl e Allergies Active Allergy Reactions Criticality Noted Date Comments Atorvastatin Unknown 02/21/2022 Didn't feel well Glipizide Unknown 02/21/2022 Didn't feel well Monosodium Glutamate Unknown 12/02/2019 palpitations Medications Lancets (ONETOUCH ULTRASOFT) lancetsIndicati ons:Type 2 diabetes mellitus with hyperglycemia, with long-term current use of insulin ([facility]) Check blood sugar three times a day before meals. 100 each 1 3 Active Blood Glucose Monitoring Suppl (ONE TOUCH ULTRA 2) w/Device KitIndications: Type 2 diabetes mellitus with hyperglycemia, with long-term current use of insulin ([facility]) Check blood sugar three times a day before meals. 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 Legal Sex Male 11:57 AM CDT Gender Identity Male 08/26/2024 12:45 PM GUNNER'S MATE Sexual Orientation Straight 08/26/2024 12 :45 PM GUNNER'S MATE Last Filed Vital Signs Vital Sign Reading Time Taken Comments Blood Pressure 122/84 08/26/2024 12:45 PM GUNNER'S MATE Pulse 99 08/26/2024 12:45 PM GUNNER'S MATE Temperature 36.7 C (98 F) 08/26/2024 12:45 PM G[facility]NER'S MATE Respiratory Rate 20 08/26/2024 12:45 PM [facility]NER'S MATE Oxygen Saturation 98% 08/26/2024 12:45 PM G[employer]NER'S MATE Inhaled Oxygen Concentration - - Weight 80.7 kg (178 lb) 08/26/2024 12:45 PM [facility]NER'S MATE Height 172.7 cm (5' 8) 08/26/2024 12:45 PM GUNNER'S MATE Body Mass Index 27.06 08/26/2024 12:45 PM G[facility]NER'S MATE Plan of Treatment Health Maintenance Due Date [...] 04/03, 02/21/2022, Additional history exists PHQ-2 (Physician Kenvir) Completed 08/26/2024 Meningococcal B Vaccine Aged Out [...] 08/06/2024 LIPID PANEL Routine 09/06/2021 3:07 PM GUNNER'S MATE Screening for lipoid disorders from Last 3 Months or Most Recently Relevant to Health Maintenance Results * OUTSIDE LAB (08/06/2024) HGB A1C 11.6 % [facility] 08/06/2024 [facility] Scanned SCANNING Final Resu lt [facility] * (ABNORMAL) LIPID PANEL (09/06/2021 3:07 PM G[facility]NER'S MATE) CHOLESTEROL 257(H) 100 - 199 mg/dL [facility] 1 TRIGLYCERIDES 132 0 - 149 mg/dL [facility] 1 HDL 74 >39 mg/dL [facility] 1 VLDL CALCULATION 23 5 - 40 mg/dL [facility] 1 LDL (CALCULATED) 160(H) 0 - 99 mg/dL [facility] 1 09/06/2021 3:07 PM [facility] MATE 09/06/2021 Narrative [facility] - 09/07/2021 11:07 AM GUNNER'S MATE Performed at: 01 - [facility] [address] [id number] Clam Bed Laborer: Leon Rees PhD, Phone: [phone] us Stephanie Ferrara NP LABORATORY Final Res ult [facility] [address] [place] [address] [facility] 1 from Last 3 Months or Most Recently Relevant to Health Maintenance Insurance [employer]
--- OUTSIDE RECORDS SUMMARY | 2025-02-10 12:18 | XMS_ITS | Clinical Summary ---
Author Organization [facility] Address [address] [place] [id number] Care Team Providers Care Barrel Coater Name Role Phone Samm Govea MD Primary Care Provider Allergies Active Allergy Reactions Criticality Noted Date Comments Monosodium Glutamate Unknown 12/02/2019 palpitations Medications lisinopriL (PRINIVIL,ZESTR [place]) 10 mg tabletIndicatio ns:hypertension Take 10 mg by mouth recruiting manager before breakfast Active empagliflozin (JARDIANCE) 25 mg tabletIndicatio ns:type 2 diabetes mellitus Take 25 mg by mouth recruiting manager before breakfast Active vitamin E (AQUASOL E) 200 unit capsuleIndicati ons:supplement Take 200 Units by mouth recruiting manager before breakfast Active potassium gluconate 500 mg [...] (12/03/2019): Added automatically from request for surgery [id number] Surgical History Surgery Date Site/Laterality Comments NO [...] on file 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 Gender Identity Not on file Sexual Orientation [...] on file Medical Devices Implanted Type Area Field Support Representative Device Identifier Shelf Expiration Date Model / Serial / Lot Depuy [employer] [id number] Delta Xtend 27mm Cementless Shoulder Standard Component Glenoid Latex Free - [id number] Implanted:Qty: 1 on 12/24/2019 by Chico Collins MD at [facility] Right: Shoulder [employer] [id number] 08/02/2024 [id number] / / [id number] Depuy [employer] [id number] Delta Xtend 4.5mm 48mm Lock Shoulder Glenoid Screw Bone Metaglene - [id number] Implanted:Qty: 1 on 12/24/2019 by Chico Collins MD at [facility] Right: Shoulder [employer] [id number] 07/02/2024 [id number] / / [id number] Dep[employer] [id number] Delta Xtend 4.5mm 42mm Lock Shoulder Glenoid Screw Bone Metaglene - [id number] Implanted:Qty: 1 on 12/24/2019 by Chico Collins MD at [facility] Right: Shoulder [employer] [id number] 08/02/2024 [id number] / / [id number] Dep[employer] [id number] Component Glenoid Delta Xtend +4mm Eccentric Od42mm - [id number] Implanted:Qty: 1 on 12/24/2019 by Chico Collins MD at [facility] Right: Shoulder [employer] [id number] 10/01/2023 [id number] / / [id number] Depuy [employer] [id number] Global Unite 12mm 120mm Modular Shoulder Standard Stem Humeral - [id number] Implanted:Qty: 1 on 12/24/2019 by Chico Collins MD at [facility] Right: Shoulder [employer] [id number] 11/30/2028 [id number] / / [id number] Dep[employer] [id number] Delta Xtend Cementless Modular Shoulder Right Epiphysis 155d 1 Latex Free - [id number] Implanted:Qty: 1 on 12/24/2019 by Chico Collins MD at [facility] Right: Shoulder [employer] [id number] 08/02/2024 [id number] / / [id number] Dep[employer] [id number] Delta Xtend 42mm Shoulder +3mm Standard Cup Humeral Polyethylene Latex Free - [id number] Implanted:Qty: 1 on 12/24/2019 by Chico Collins MD at [facility] Right: Shoulder [employer] [id number] 06/01/2024 [id number] / / [id number] Explanted Type Area Field Support Representative Device Identifier Shelf Expiration Date Model / Serial / Lot [employer] [id number] Rena 3/32in 9in 2 Trocar Pin Fixation Nonsterile - [id number] Explanted:Qty: 1 on 12/24/2019 by Chico Collins MD at [facility] Right: Shoulder [employer] [id number] S / / Insurance BL CHOICE PRF PPO [place] Advance Directives For more information, please contact: [phone] * Full Code (Latest Code Status on File) Date Activated Date Inactivated Comments 12/24/2019 2:33 PM 12/25/2019 6:44 PM Care Teams Barrel Coater Relationship Specialty Start Date End Date Samm Govea MD [address] [place] [address] PCP - General 12/24/19
--- NOTE | 2025-02-10 12:51 | ED.GENADULT ---
HPI - General Adult General Chief complaint: Wound/Laceration Stated complaint: left toe infection, diabetic Time Seen by Provider: 02/10/25 12:02 History of Present Illness HPI narrative: 64-year-old male presents to the emergency department for evaluation for a worsening infection to his left middle toe. Patient was admitted to our hospital from 01/16-01/20 and was treated for cellulitis with IV antibiotics. Patient states when he was discharged the foot was looking better but states over the last few days that is worsening in. Patient did have follow-up with primary care physician requesting antibiotics and time off of work and the patient states that the primary care physician declined to give him any time off of work. Patient presented to the emergency department requesting antibiotics an time off of work to rest the foot. Related Data Home Medications ?Medication ?Instructions ?Recorded ?Confirmed ?Last Taken ?Type ascorbic acid (vitamin C) 500 mg 500 mg PO DAILY 08/05/24 01/17/25 08/05/24 History tablet (Vitamin C) vitamin E (dl, acetate) 180 mg 180 mg PO DAILY 08/05/24 01/17/25 08/05/24 History (400 unit) capsule Allergies Allergy/AdvReac Type Severity Reaction Status Date / Time monosodium glutamate Allergy Unknown Unknown Verified 02/10/25 09:32 Review of Systems Review of Systems: All systems reviewed & are unremarkable except as noted in HPI and below PMFSH Past Medical History Medical History (Updated 02/10/25 @ 12:59 by Raúl Ordaz MD) ETOH abuse Cellulitis Type 2 diabetes mellitus Hypertension Surgical History Surgical History History of shoulder surgery Family History Family History (Updated 01/16/25 @ 17:30 by Darius Malcolm RN) Mother Family history non-contributory Alzheimer dementia Father Family history non-contributory Aneurysm Grandparent Family history non-contributory Social History Social History Social History: Surrogate medical decision maker: Kate Shah ([phone]). Code status: Full code. Smoking status: Never smoker Alcohol intake: current Drinks per week: 24 Alcohol use details: on average 3 beers a night, sometimes less Substance use: never Do You Feel Safe in your Home?: Yes Lack of Transportation: No Lack of Food: Never True Current Housing: I Have Housing Concerned About Future Housing: No Difficulty Paying Gas/Electric Bills: No Difficulty Paying for Meds: No Currently Unemployed: No Education: Decline to Answer Difficulty w/ Childcare or Family Care: No Spiritual care concerns: No Exam Narrative: APPEARANCE: Well appearing, no pain, no distress, well-nourished. HEAD: normocephalic, atraumatic. EYES: PERRLA/EOMI, conjunctivae clear. NOSE: Normal no drainage EARS:TMS clear with good light reflex. THROAT: Pharynx clear, no exudate. NECK: Supple. No adenopathy, no masses. RESPIRATORY: Airway patent, respirations nonlabored. Clear to auscultation bilaterally, no rales, rhonchi, wheezing. CARDIOVASCULAR: Regular rate and rhythm without murmurs rubs or gallops. ABDOMINAL: Soft, nontender, nondistended, normal bowel sounds MUSCULOSKELETAL: Patient does have erythema and swelling the middle toe on the left foot. No erythema tracking up the dorsum of the left foot. No tenderness to palpation of the foot some tenderness to palpation of the left toe NEURO: Alert. Cranial nerves II through XII intact. Good gait. Good coordination SKIN: Warm, dry. Normal Color Course Vital Signs Vital signs: Vital Signs Temperature 97.8 F 02/10/25 09:52 Pulse Rate 103 H 02/10/25 09:52 Respiratory Rate 16 02/10/25 09:52 Blood Pressure 146/77 H 02/10/25 09:52 Pulse Oximetry 99 02/10/25 09:52 Oxygen Delivery Room Air 02/10/25 09:52 Temperature 97.8 F 02/10/25 09:52 Pulse Rate 100 02/10/25 13:21 Respiratory Rate 20 02/10/25 13:21 Blood Pressure 113/84 02/10/25 13:21 Pulse Oximetry 97 02/10/25 13:21 Oxygen Delivery Room Air 02/10/25 09:52 Medical Decision Making MDM Narrative Medical decision making narrative: 64-year-old male presenting to the emergency department for evaluation for antibiotics a work. Patient does have a concerning infection of the left middle toe. Patient does offer admission for further IV antibiotics evaluation toe but patient has declined and prefers to have outpatient evaluation and is primarily requesting antibiotics and time to rest the foot. Patient will be provided follow-up both Orthopedics and Podiatry. 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 Bactrim was started emergency department. Differential Diagnosis Differential Diagnosis: Necrotizing fasciitis, cellulitis, foot fracture, diabetic ulcer Vital Signs Vital Signs: Vital Signs Temperature 97.8 F 02/10/25 09:52 Pulse Rate 103 H 02/10/25 09:52 Respiratory Rate 16 02/10/25 09:52 Blood Pressure 146/77 H 02/10/25 09:52 Pulse Oximetry 99 02/10/25 09:52 Oxygen Delivery Room Air 02/10/25 09:52 Temperature 97.8 F 02/10/25 09:52 Pulse Rate 100 02/10/25 13:21 Respiratory Rate 20 02/10/25 13:21 Blood Pressure 113/84 02/10/25 13:21 Pulse Oximetry 97 02/10/25 13:21 Oxygen Delivery Room Air 02/10/25 09:52 Lab Data Labs: Lab Results 02/10/25 Range/Units 11:35 POC Capillary Glucose 173 H (65-105) mg/dl Discharge Plan Discharge Clinical Impression: Cellulitis, Diabetic toe ulcer Patient Disposition: Home Condition: Stable Instructions: Antibiotic Form, Foot Care for People with Diabetes (DC) Additional Instructions: You were offered admission for IV antibiotics an you declined and preferred to try oral antibiotics rest. If you have any worsening symptoms then please call or return to the emergency department. Close follow-up with Orthopedics and with Podiatry for further evaluation the toe. Patient Language: Icelandic Prescriptions: New sulfamethoxazole-trimethoprim [Bactrim DS] 800-160 mg tablet 1 tablet PO Q12H 7 Days Qty: 14 0RF No Action ascorbic acid (vitamin C) [Vitamin C] 500 mg tablet 500 mg PO DAILY vitamin E (dl, acetate) 180 mg (400 unit) capsule 180 mg PO DAILY dextrose [Glutose-15] 40 % Gel 15 g PO PRN PRN (Reason: Hypoglycemia) Qty: 112.5 0RF Rx Instructions: Use if glucose is less than 70 (DME) pen needle, diabetic [BD Ultra-Fine Micro Pen Needle] 32 gauge x 1/4 needle 1 ea miscellaneous QID Qty: 100 3RF doxycycline hyclate 100 mg Tablet 100 mg PO Q12HR Qty: 11 0RF (DME) blood-glucose meter [True Metrix Glucose Meter] Misc See Rx Instructions .Route Qty: 1 0RF Rx Instructions: As directed meloxicam 15 mg tablet 15 mg PO DAILY Qty: 30 0RF lisinopril 20 mg Tablet 20 mg PO DAILY Qty: 90 0RF (DME) True Metrix Glucose Test Strip Strip See Rx Instructions .Route Qty: 100 3RF Rx Instructions: As directed (DME) lancing device [lancing device with lancets] Misc See Rx Instructions .Route Qty: 1 0RF Rx Instructions: As directed insulin glargine [Lantus U-100 Insulin] 100 unit/mL Solution 23 unit subcut HS Qty: 3 3RF metformin [Glucophage XR] 500 mg tablet extended release 24 hr 500 mg PO BID Qty: 90 0RF Rx Instructions: please take 500 mg daily for 1 week, then increase to twice a day Follow-up/Referrals: Wisam Rick Jr., DPM [Physician] - Musa Flores MD [Physician] - UNKNOWN,DOCTOR [Primary Care Provider] - Stand Alone Forms: Work/School Release IP
[2025-02-10 13:21] VITALS: BP 113/84; PULSE 100; RESP 20; O2SAT 97
[2025-02-10] MEDS: SULFAMETHOXAZOLE/TRIMETHOPRIM 800/160 MG DS TABLET 1 TAB PO (13:21)
== END 2025-02-10 13:27 | disposition home or self-care (01) ==
PROVIDERS: Emergency Provider Emergency Medicine
DX: E11.621 Type 2 diabetes mellitus with foot ulcer (principal); L97.529 Non-pressure chronic ulcer of other part of left foot with unspecified severity; L03.032 Cellulitis of left toe; I10 Essential (primary) hypertension; Z79.4 Long term (current) use of insulin; Z79.84 Long term (current) use of oral hypoglycemic drugs; Z79.899 Other long term (current) drug therapy
CPT/HCPCS: 82948; 99283; A9270

== ENCOUNTER 2025-05-06 07:54 | Emergency (ER) | payer OTHER, SELFPAY ==
[2025-05-06 07:59] VITALS: BP 156/96; PULSE 92; RESP 13; TEMP 36.9; O2SAT 98
--- OUTSIDE RECORDS SUMMARY | 2025-05-06 08:01 | XMS_ITS | Clinical Summary ---
Author Organization [facility] Address [address] [place] [address] Care Team Providers Care Curator Herbarium Name Role Phone Samm Govea MD Primary Care Provider [phone] Allergies Active Allergy Reactions Criticality Noted Date Comments Monosodium Glutamate Unknown 12/02/2019 palpitations Medications lisinopriL (PRINIVIL,ZESTR [place]) 10 mg tabletIndicatio ns:hypertension Take 10 mg by mouth nutritionalist before breakfast Active empagliflozin (JARDIANCE) 25 mg tabletIndicatio ns:type 2 diabetes mellitus Take 25 mg by mouth nutritionalist before breakfast Active vitamin E (AQUASOL E) 200 unit capsuleIndicati ons:supplement Take 200 Units by mouth nutritionalist before breakfast Active potassium gluconate 500 mg [...] (12/03/2019): Added automatically from request for surgery [id number] Surgical History Surgery Date Site/Laterality Comments NO [...] on file 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 Right: Shoulder [employer] [id number] 08/02/2024 [id number] / / [id number] [employer] [id number] Delta Xtend 4.5mm 48mm Lock Shoulder Glenoid Screw Bone Metaglene - [id number] Implanted:Qty: 1 on 12/24/2019 by Chico Collins MD at [facility] Right: Shoulder [employer] [id number] 07/02/2024 [id number] / / [id number] [employer] [id number] Delta Xtend 4.5mm 42mm Lock Shoulder Glenoid Screw Bone Metaglene - [id number] Implanted:Qty: 1 on 12/24/2019 by Chico Collins MD at [facility] Right: Shoulder [employer] [id number] 08/02/2024 [id number] / / [id number] Dep[employer] [id number] Component Glenoid Delta Xtend +4mm Eccentric Od42mm - [id number] Implanted:Qty: 1 on 12/24/2019 by Chico Collins MD at [facility] Right: Shoulder [employer] [id number] 10/01/2023 [id number] / / [id number] Dep[employer] [id number] Global Unite 12mm 120mm Modular Shoulder Standard Stem Humeral - [id number] Implanted:Qty: 1 on 12/24/2019 by Chico Collins MD at [facility] Right: Shoulder [employer] [id number] 11/30/2028 [id number] / / [id number] Dep[employer] [id number] Delta Xtend Cementless Modular Shoulder Right Epiphysis 155d 1 Latex Free - [id number] Implanted:Qty: 1 on 12/24/2019 by Chico Collins MD at [facility] Right: Shoulder [employer] [id number] 08/02/2024 [id number] / / [id number] Dep[employer] [id number] Delta Xtend 42mm Shoulder +3mm Standard Cup Humeral Polyethylene Latex Free - [id number] Implanted:Qty: 1 on 12/24/2019 by Chico Collins MD at [facility] Right: Shoulder [employer] [id number] 06/01/2024 [id number] / / [id number] Explanted Type Area Grapple Skidder Operator Device Identifier Shelf Expiration Date Model / Serial / Lot [employer] [id number] Steinmann 3/32in 9in 2 Trocar Pin Fixation Nonsterile - [id number] Explanted:Qty: 1 on 12/24/2019 by Chico Collins MD at [facility] Right: Shoulder [employer] [id number] S / / Insurance [employer] [place]F [place]PO [place] Advance Directives For more information, please contact: [phone] * Full Code (Latest Code Status on File) Date Activated Date Inactivated Comments 12/24/2019 2:33 PM 12/25/2019 6:44 PM Care Teams Curator Herbarium Relationship Specialty Start Date End Date Samm Govea MD [address] [place] [id number] PCP - General 12/24/19
--- OUTSIDE RECORDS SUMMARY | 2025-05-06 08:01 | XMS_ITS | Clinical Summary ---
Author Organization [facility] Address [address] [place] [address] Care Team Providers Care Nylon Winder Name Role Phone Chente Palacio MD Primary Care Provider [phone] Source Comments [facility],non-owned Affiliates and Associated Physician Practices is amultiple site organization consisting of ambulatory clinics and hospital sitesin [place], [place], [place] and [place]. This disclosure is being madepursuant to the Care Everywhere program and may not contain all information available regarding this patient. Last updated 18.Serus Allergies No known active allergies Medications * Be aware that medications may not be up to date on this document. Alwaysverify current medications with the patient. metFORMIN ER 24hr (Glucophage XR) 500 MG tablet Take 1 (one) tablet by mouth daily with dinner 5 Active meloxicam (Mobic) 15 MG tablet Take 1 (one) tablet by mouth once daily 4 Active lisinopril (Prinivil; Zestril) 20 MG tablet Take 1 (one) tablet by mouth once daily 5 Active Insulin Degludec FlexTouch 100 UNIT/ML SOPN Inject 100 Units subcutaneously once daily Active insulin aspart (NovoLOG FLEXPEN) pen Inject into the skin 3 (three) times daily before meals. < 70 follow hypoglycemia order 70-200 no additional insulin 201-250 4 units 251-300 5 units 301-350 6 units 351-400 8 units > 400 call Active Continuous Glucose Sensor (FreeStyle Davion 3 Plus Sensor) MISCIndication s:Type 2 diabetes mellitus with hyperglycemia, without long-term current use of insulin (HCC) Use 1 Each every 15 days 2 Each 11 5 Active Continuous Glucose Crowning Inspector (FreeStyle Davion 3 [place]) DEVIIndication s:Type 2 diabetes mellitus with hyperglycemia, without long-term current use of insulin (HCC) Use 1 Each continuous 1 Each 5 Active blood glucose test stripIndicatio ns:Type 2 diabetes mellitus with hyperglycemia, without long-term current use of insulin (HCC) Use 1 (one) strip as directed 100 strip 5 Active lancetsIndicat ions:Type 2 diabetes mellitus with hyperglycemia, without long-term current use of insulin (HCC) Use 1 (one) Each once daily 100 Each 5 Active Active Problems Problem Noted Date Diagnosed Date Type 2 diabetes mellitus wit h hyperglycemia, without long-term current use of insulin 03/06/2025 Encounters Date Type Department Care Team Description 04/08/2025 Refill [facility] - Internal Med [address] [place] [phone] Sheila Kay APRN-CNP Refill Request 04/04/2025 Refill [facility] - Internal Med [address] [place] [phone] Sheila Kay APRN-CNP Refill Request 03/06/2025 10:40 AM CDT Office Visit [facility] - Endocrinology [address] [place] [address] Rabia Boles APRN-CNP Type 2 diabetes mellitus with hyperglycemia, without long-term current use of insulin (HCC) (Primary Dx); Type 1 diabetes mellitus without complication (HCC) 02/21/2025 Travel from Last 3 Months Family History Relation Name Status Comments Brother Alive Father Mother Sister Alive Social History Tobacco Use Types Packs/Day Years Used Date Smoking Tobacco: Never Smokeless Tobacco: Never Alcohol Use Standard Drinks/Week Comments Not Currently 0 (1 standard drink = 0.6 oz pur e alcohol) Sex and Gender Information Value Date Recorded Sex Assigned at Not on file Legal Sex Male 7:40 AM CDT Gender Identity Not on file Sexual Orientation Not on file Last Filed Vital Signs Vital Sign Reading Time Taken Comments Blood Pressure 160/99 03/06/2025 10:45 AM CDT Pulse 85 03/06/2025 10:45 AM CDT Temperature 36.2 C (97.1 F) 03/06/2025 10:45 AM CDT Respiratory Rate - - Oxygen Saturation 97% 03/06/2025 10:45 AM CDT Inhaled Oxygen Concentration - - Weight 84.6 kg (186 lb 9.6 oz) 03/06/2025 10:45 AM CDT Height 172.7 cm (5' 8) 03/06/2025 10:45 AM CDT Body Mass Index 28.37 03/06/2025 10:45 AM CDT Plan of Treatment Health Maintenance Due Date Last Done Comments COLOGUARD (AGES 45-75) - COL ON CA SCREENING 1962 COLON MONITORING 1962 COLONOSCOPY - COLON CA SCREENING 1962 CT COLONOGRAPHY - COLON CA SCREENING 1962 Colorectal Cancer Screening 1962 FIT - COLON CA SCREENING 1962 FLEX SIG - COLON CA SCREENING 1962 HIV SCREENING 1977 HEPATITIS C SCREENING 10/13/1980 DIABETES-SERUM CREATININE 1980 DTAP/TDAP/TD VACCINES (1 - Tdap) 1981 PNEUMOCOCCAL VACCINE 50+ (1 of 2 - PCV) 1981 DIABETES-STATIN 2002 ZOSTER VACCINE (1 of 2) 2012 Respiratory Syncytial Virus (RSV) Vaccine Pt: or over 60 yrs (1 - Risk 60-74 years 1-dose series) 2022 DEPRESSION SCREENING 07/03/2024 DIABETES - URINE PROTEIN SCREENING 07/03/2024 COVID-19 VACCINE (3 - 2024-2 6 season) 2025 04/14/2021, 02/16/2021 INFLUENZA VACCINE (#1) 2025 DIABETES RETINOPATHY SCREENING 03/06/2025 DIABETES-FOOT EXAM WITH MONOFILAMENT 03/06/2025 DIABETES-HGB A1C 06/05/2025 03/06/2025 HEPATITIS B VACCINE Aged Out No longe r eligible based on patient's age to complete this topic HIB VACCINE Aged Out No longer eligi ble based on patient's age to complete this topic HPV VACCINE Aged Out No longer eligi ble based on patient's age to complete this topic MENINGOCOCCAL (Group B) VACCINE SHARED DECISION-MAKING Aged Out No longer eligible based on patient's age to complete this topic MENINGOCOCCAL GROUPS A/C/Y/W VACCINE Aged Out No longer eligible b ased on patient's age to complete this topic Procedures Procedure Name Priority Date/Time Associated Diagnosis Comments HEMOGLOBIN A1C - POINT OF CARE (AMB) [facility] Routine 03/06/2025 10:55 AM CDT Type 1 diabetes mellitus without complication (HCC) from Last 3 Months Results * HEMOGLOBIN A1C - POINT OF CARE (AMB) [facility] (03/06/2025 10:55 AM CDT) Hemoglobin A1c POCT 9.4 % [facility] [address] BLOOD SPECIMEN / Unknown 03/06/2025 10:55 AM CDT Rabia Boles OCCUPATIONAL HEALTH NURSING DIRECTOR-RETAIL AGENT LAB - POINT OF CARE OR DERABLES Final Result [facility] [address] [place] [address], [facility] [phone] from Last 3 Months Insurance [employer] Care Teams Nylon Winder Relationship Specialty Start Date End Date Chente Palacio MD [address] [address] PCP - General Family Medicine 03/06/25
[2025-05-06 09:12] VITALS: BP 130/82; PULSE 88; RESP 18; TEMP 37.1; O2SAT 99
--- OUTSIDE RECORDS SUMMARY | 2025-05-06 09:53 | XMS_ITS | Clinical Summary ---
Author Organization [facility] Address [facility] [place] [address] Care Team Providers Care Painter Assistant Name Role Phone Unavailable Primary Care Provider Unavailabl e Allergies Active Allergy Reactions Criticality Noted Date Comments Atorvastatin Unknown 02/21/2022 Didn't feel well Glipizide Unknown 02/21/2022 Didn't feel well Monosodium Glutamate Unknown 12/02/2019 palpitations Medications Lancets (ONETOUCH ULTRASOFT) lancetsIndicati ons:Type 2 diabetes mellitus with hyperglycemia, with long-term current use of insulin ([facility]) Check blood sugar three times a day before meals. 100 each 1 3 Active Blood Glucose Monitoring Suppl (ONE TOUCH ULTRA 2) w/Device KitIndications: Type 2 diabetes mellitus with hyperglycemia, with long-term current use of insulin ([facility]) Check blood sugar three times a day before meals. 1 kit 3 Active Glucose Blood test stripIndication s:Type 2 diabetes mellitus with hyperglycemia, with long-term current use of insulin ([facility]) Check blood sugar three times [...] erectile dysfu nction type 09/21/2021 Diabetes mellitus 05/13/2019 Immunizations Immunization Administration Dates Next Due [...] Sex Assigned at Male 08/26/2024 12:45 PM DERRICK FOLLOWER Legal Sex Male 11:57 AM CDT Gender Identity Male 08/26/2024 12:45 PM DERRICK FOLLOWER Sexual Orientation Straight 08/26/2024 12 :45 PM DERRICK FOLLOWER Last Filed Vital Signs Vital Sign Reading Time Taken Comments Blood Pressure 122/84 08/26/2024 12:45 PM DERRICK FOLLOWER Pulse 99 08/26/2024 12:45 PM DERRICK FOLLOWER Temperature 36.7 C (98 F) 08/26/2024 12:45 PM DERRICK FOLLOWER Respiratory Rate 20 08/26/2024 12:45 PM DERRICK FOLLOWER Oxygen Saturation 98% 08/26/2024 12:45 PM DERRICK FOLLOWER Inhaled Oxygen Concentration - - Weight 80.7 kg (178 lb) 08/26/2024 12:45 PM DERRICK FOLLOWER Height 172.7 cm (5' 8) 08/26/2024 12:45 PM DERRICK FOLLOWER Body Mass Index 27.06 08/26/2024 12:45 PM DERRICK FOLLOWER Plan of Treatment Health Maintenance Due Date [...] - Risk 60-74 years 1-dose series) 2022 Annual Physical 04/24/2024 04/24/2023, 02/01, 02/08/2021 Hemoglobin A1C 11/03/2024 08/06/2024, 04/03, 02/21/2022, Additional history exists COVID-19 Vaccine ( season) 2025 04/14/2021, 02/16/2021 Influenza Adult (#1) 2025 PHQ-2 (Physician [place]) Completed 08/26/2024 Hepatitis A Vaccines Aged Out No long er eligible based on patient's age to complete this topic Meningococcal B Vaccine Aged Out No l [...] 08/06/2024 LIPID PANEL Routine 09/06/2021 3:07 PM DERRICK FOLLOWER Screening for lipoid disorders from Last 3 Months or Most Recently Relevant to Health Maintenance Results * OUTSIDE LAB (08/06/2024) HGB A1C 11.6 % [facility] ON[facility] 08/06/2024 [facility] Scanned SCANNING Final Resu lt [facility] ON[facility] * (ABNORMAL) LIPID PANEL (09/06/2021 3:07 PM DERRICK FOLLOWER) CHOLESTEROL 257(H) 100 - 199 mg/dL [facility] 1 TRIGLYCERIDES 132 0 - 149 mg/dL [facility] 1 HDL 74 >39 mg/dL [facility] 1 VLDL CALCULATION 23 5 - 40 mg/dL [facility] 1 LDL (CALCULATED) 160(H) 0 - 99 mg/dL [facility] 1 09/06/2021 3:07 PM DERRICK FOLLOWER 09/06/2021 Narrative [facility] - 09/07/2021 11:07 AM DERRICK FOLLOWER Performed at: 01 - [facility] [address] [id number] [employer] Rep[employer] Teacher: Leon Rees PhD, Phone: [phone] Stephanie Ferrara [employer] CONSULT[employer] LABORATORY Final Res ult [facility] [address] [place] [address] [facility] 1 from Last 3 Months or Most Recently Relevant to Health Maintenance [facility]
--- OUTSIDE RECORDS SUMMARY | 2025-05-06 09:53 | XMS_ITS | Clinical Summary ---
Author Organization [facility] [employer] Address [address] [place] [address] Care Team Providers Care Gang Drill Press Operator Name Role Phone Chente Palacio MD Primary Care Provider [phone] Source Comments [facility] [employer],non-owned Affiliates and Associated Physician Practices is amultiple site organization consisting of ambulatory clinics and hospital sitesin [place], [place], [place] and [place]. This disclosure is being madepursuant to the Care Everywhere program and may not contain all information available regarding this patient. Last updated 18.BOND Allergies No known active allergies Medications * [...] 2 Each 11 5 Active Continuous Glucose Electrician Technician (FreeStyle Davion 3 [place]) DEVIIndication s:Type 2 diabetes mellitus with hyperglycemia, [...] Refill [facility] - Internal Med [address] [place] [phone] Sheila Kay APRN-CNP Refill Request 04/04/2025 Refill [facility] - Internal Med [address] [place] [phone] Sheila Kay APRN-CNP Refill Request 03/06/2025 10:40 AM CDT Office Visit [facility] - Endocrinology [address] [place] [address] Rabia Boles APRN-CNP Type 2 diabetes mellitus [...] Unknown 03/06/2025 10:55 AM CDT Rabia Boles GENETICS PHYSICIAN-TUNNELING MACHINE OPERATOR LAB - POINT OF CARE OR DERABLES Final Result [facility] [address] [place] [address], [facility] [place] [phone] from Last 3 Months Insurance [employer] Care Teams Gang Drill Press Operator Relationship Specialty Start Date End Date Chente Palacio MD [address] [address] PCP - General Family Medicine 03/06/25
--- OUTSIDE RECORDS SUMMARY | 2025-05-06 09:53 | XMS_ITS | Clinical Summary ---
Author Organization [facility] Address [address] [place] [phone] Care Team Providers Care Red Hat Open Stack Administrator Name Role Phone Samm Govea MD Primary Care Provider Allergies Active Allergy Reactions Criticality Noted Date Comments Monosodium Glutamate Unknown 12/02/2019 palpitations Medications lisinopriL (PRINIVIL,ZESTR [place]) 10 mg tabletIndicatio ns:hypertension Take 10 mg by mouth assembler small products before breakfast Active empagliflozin (JARDIANCE) 25 mg tabletIndicatio ns:type 2 diabetes mellitus Take 25 mg by mouth assembler small products before breakfast Active vitamin E (AQUASOL E) 200 unit capsuleIndicati ons:supplement Take 200 Units by mouth assembler small products before breakfast Active potassium gluconate 500 mg [...] (12/03/2019): Added automatically from request for surgery [id number] Surgical History Surgery Date Site/Laterality Comments NO [...] on file Legal Sex Male 7:44 PM LANDMEN Gender Identity Not on file Sexual Orientation [...] on file Medical Devices Implanted Type Area Conveyor Installer Device Identifier Shelf Expiration Date Model / Serial / Lot Depuy [employer] [id number] Delta Xtend 27mm Cementless Shoulder Standard Component Glenoid Latex Free - [id number] Implanted:Qty: 1 on 12/24/2019 by Chico Collins MD at [facility] Right: Shoulder [employer] [id number] 08/02/2024 [id number] / / [id number] Depuy [employer] [id number] Delta Xtend 4.5mm 48mm Lock Shoulder Glenoid Screw Bone Metaglene - [id number] Implanted:Qty: 1 on 12/24/2019 by Chico Collins MD at [facility] Right: Shoulder [employer] [id number] 07/02/2024 [id number] / / [id number] Depuy [employer] [id number] Delta Xtend 4.5mm 42mm Lock Shoulder Glenoid Screw Bone Metaglene - [id number] Implanted:Qty: 1 on 12/24/2019 by Chico Collins MD at [facility] Right: Shoulder [employer] [id number] 08/02/2024 [id number] / / [id number] Depuy [employer] [id number] Component Glenoid Delta Xtend +4mm Eccentric Od42mm - [id number] Implanted:Qty: 1 on 12/24/2019 by Chico Collins MD at [facility] Right: Shoulder [employer]uy [employer] [id number] 10/01/2023 [id number] / / [id number] Depuy [employer] [id number] Global Unite 12mm 120mm Modular Shoulder Standard Stem Humeral - [id number] Implanted:Qty: 1 on 12/24/2019 by Chico Collins MD at [facility] Right: Shoulder [employer] [id number] 11/30/2028 [id number] / / [id number] Depuy [employer] [id number] Delta Xtend Cementless Modular Shoulder Right Epiphysis 155d 1 Latex Free - [id number] Implanted:Qty: 1 on 12/24/2019 by Chico Collins MD at [facility] Right: Shoulder [employer] [id number] 08/02/2024 [id number] / / [id number] Dep[employer] [id number] Delta Xtend 42mm Shoulder +3mm Standard Cup Humeral Polyethylene Latex Free - [id number] Implanted:Qty: 1 on 12/24/2019 by Chico Collins MD at [facility] Right: Shoulder [employer] [id number] 06/01/2024 [id number] / / [id number] Explanted Type Area Conveyor Installer Device Identifier Shelf Expiration Date Model / Serial / Lot Greetz[employer] [id number] Steinmann 3/32in 9in 2 Trocar Pin Fixation Nonsterile - [id number] Explanted:Qty: 1 on 12/24/2019 by Chico Collins MD at [facility] Right: Shoulder [employer] [id number] S / / Insurance [place] Advance Directives For more information, please contact: [phone] * Full Code (Latest Code Status on File) Date Activated Date Inactivated Comments 12/24/2019 2:33 PM 12/25/2019 6:44 PM Care Teams Red Hat Open Stack Administrator Relationship Specialty Start Date End Date Samm Govea MD [address] [place] [id number] PCP - General 12/24/19
--- NOTE | 2025-05-06 10:02 | ED_ITS ---
HPI - Extremity Problem General Chief complaint: Extremity Problem,Nontraumatic Stated complaint: diabetic wound to feet Time Seen by Provider: 05/06/25 08:00 History of Present Illness HPI Narrative: Patient presents here because he has been out of insulin for last few days, and has been having trouble following up with his primary care doctor who has not been responding to his messages, he is also told by his primary care doctor that he had no pulses in his feet and they were going to get chopped off, this has been ongoing for months. Related Data Home Medications ?Medication ?Instructions ?Recorded ?Confirmed ?Last Taken ?Type ascorbic acid (vitamin C) 500 mg 500 mg PO DAILY 08/0501/17/25 08/05/24 History tablet (Vitamin C) vitamin E (dl, acetate) 180 mg 180 mg PO DAILY 01/17/25 08/05/24 History (400 unit) capsule Allergies Allergy/AdvReac Type Severity Reaction Status Date / Time monosodium glutamate Allergy Unknown Unknown Verified 05/06/25 07:59 Review of Systems Review of Systems: All systems reviewed & are unremarkable except as noted in HPI and below PMFSH Past Medical History Medical History (Updated 05/06/25 @ 08:24 by Sonali Cabral MD) ETOH abuse Cellulitis Type 2 diabetes mellitus Hypertension Surgical History Surgical History History of shoulder surgery Family History Family History (Updated 01/16/25 @ 17:30 by Darius Malcolm RN) Mother Family history non-contributory Alzheimer dementia Father Family history non-contributory Aneurysm Grandparent Family history non-contributory Social History Social History Social History: Surrogate medical decision maker: Kate Shah ([phone]). Code status: Full code. Smoking status: Never smoker Alcohol intake: current Drinks per week: 24 Alcohol use details: on average 3 beers a night, sometimes less Substance use: never Do You Feel Safe in your Home?: Yes Lack of Transportation: No Lack of Food: Never True Current Housing: I Have Housing Concerned About Future Housing: No Difficulty Paying Gas/Electric Bills: No Difficulty Paying for Meds: No Currently Unemployed: No Education: Decline to Answer Difficulty w/ Childcare or Family Care: No Spiritual care concerns: No Exam Narrative: EXAMINATION OF ORGAN SYSTEMS/BODY AREAS: Constitutional: Vital signs per nursing GENERAL:[No acute distress, non-toxic appearing.] HEAD: Normal with no signs of head trauma. EYES: EOMI, conjunctiva normal ENT: Hearing grossly intact LUNGS: Nonlabored breathing. HEART: [Regular rate and rhythm]; strong R DP pulse; L DP pulse slightly diminished but feet are well-perfused and warm ABD: [Soft], [nontender to palpation] EXT: Normal range of motion; some dried ulcers on toes SKIN: No erythema or tenderness/induration to feet. NEURO: [Alert and oriented x 3. No gross focal sensory or strength deficits.] PSYCH: Normal affect Course Vital Signs Vital signs: Vital Signs Temperature 98.5 F 05/06/25 07:59 Pulse Rate 92 05/06/25 07:59 Respiratory Rate 13 05/06/25 07:59 Blood Pressure 156/96 H 05/06/25 07:59 Pulse Oximetry 98 05/06/25 07:59 Oxygen Delivery Room Air 05/06/25 07:59 Temperature 98.7 F 05/06/25 09:12 Pulse Rate 88 05/06/25 09:12 Respiratory Rate 18 05/06/25 09:12 Blood Pressure 130/82 05/06/25 09:12 Pulse Oximetry 99 05/06/25 09:12 Oxygen Delivery Room Air 05/06/25 07:59 MDM - Extremity (Nontraumatic) MDM Narrative Medical decision making narrative: Patient presenting here out of his insulin, he is concerned because he would like to have his blood sugar kept under control, knowing that he already has some issues from this including neuropathy, diabetic foot ulcers, and retinopathy. Has been having trouble getting in to see his doctor. He has enough of his other medications. He is otherwise well-appearing here, blood sugar thankfully is not terribly high here, it is only 190, so I will refill his glargine, given information for new PCP and senior java web developer. His doctor had been concerned about perfusion to his feet, on my exam there both well perfused, warm, with cap refill less than 2nd, strong DP pulse on the right with slightly less strong on the left but both palpable. With patient comfortable with outpatient management, with strict return precautions. Lab Data Labs: Lab Results 05/06/25 Range/Units 08:09 POC Capillary Glucose 190 H (65-105) mg/dl Discharge Plan Discharge Clinical Impression: Medication refill Patient Disposition: Home Condition: Stable Additional Instructions: Please follow up with your doctor and senior java web developer; you can always return for any further issues. Patient Language: Fijian Prescriptions: New insulin glargine [Lantus U-100 Insulin] 100 unit/mL solution 23 unit subcut DAILY 30 Days Qty: 6.9 0RF No Action sulfamethoxazole-trimethoprim [Bactrim DS] 800-160 mg tablet 1 tablet PO Q12H 7 Days Qty: 14 0RF ascorbic acid (vitamin C) [Vitamin C] 500 mg tablet 500 mg PO DAILY vitamin E (dl, acetate) 180 mg (400 unit) capsule 180 mg PO DAILY dextrose [Glutose-15] 40 % Gel 15 g PO PRN PRN (Reason: Hypoglycemia) Qty: 112.5 0RF Rx Instructions: Use if glucose is less than 70 (DME) pen needle, diabetic [BD Ultra-Fine Micro Pen Needle] 32 gauge x 1/4 needle 1 ea miscellaneous QID Qty: 100 3RF doxycycline hyclate 100 mg Tablet 100 mg PO Q12HR Qty: 11 0RF (DME) blood-glucose meter [True Metrix Glucose Meter] [facility] [place] [place] See Rx Instructions .Route Qty: 1 0RF Rx Instructions: As directed meloxicam 15 mg tablet 15 mg PO DAILY Qty: 30 0RF lisinopril 20 mg Tablet 20 mg PO DAILY Qty: 90 0RF (DME) True Metrix Glucose Test Strip Strip See Rx Instructions .Route Qty: 100 3RF Rx Instructions: As directed (DME) lancing device [lancing device with lancets] [facility] [place] [place] See Rx Instructions .Route Qty: 1 0RF Rx Instructions: As directed insulin glargine [Lantus U-100 Insulin] 100 unit/mL Solution 23 unit subcut HS Qty: 3 3RF metformin [Glucophage XR] 500 mg tablet extended release 24 hr 500 mg PO BID Qty: 90 0RF Rx Instructions: please take 500 mg daily for 1 week, then increase to twice a day Follow-up/Referrals: Brodie Flowers MD [Physician, Family Practice] - 2 Days Wisam Rick Jr., DPM [Physician, Podiatry] - 2 Days UNKNOWN,DOCTOR [Primary Care Provider] Stand Alone Forms: Work/School Release IP
== END 2025-05-06 09:16 | disposition home or self-care (01) ==
LOC: ANHED 09:01
PROVIDERS: Emergency Provider Emergency Medicine
DX: E11.40 Type 2 diabetes mellitus with diabetic neuropathy, unspecified (principal); E11.319 Type 2 diabetes mellitus with unspecified diabetic retinopathy without macular edema; E11.621 Type 2 diabetes mellitus with foot ulcer; L97.529 Non-pressure chronic ulcer of other part of left foot with unspecified severity; L97.519 Non-pressure chronic ulcer of other part of right foot with unspecified severity; I10 Essential (primary) hypertension; Z79.4 Long term (current) use of insulin
CPT/HCPCS: 82948; 99282